=== PATIENT | male | born 1935 | race Caucasian/White ===

== ENCOUNTER 2016-08-26 19:29 | Inpatient (IN) | payer OTHER ==
[~2016-08-26] VITALS: Ht 172.7 cm; Wt 68.1 kg
[~2016-08-26 19:29] MED LIST: ASPI81TA28 PO; ATOR-24 PO; LISI-729 PO; SIMV20TA2 PO
[2016-08-26] MEDS ORDERED: SODIUM CHLORIDE 0.9% 1000ML 1,000 ML IV STA (20:42)
[2016-08-26] MEDS ORDERED: SOTA80TA PO (20:45)
[2016-08-26 20:51] LABS: BASO % 0.6 %; BASO ABS # 0.03 K/uL (0-0.2); COMPLETE YES; EOS % 2.7 %; HEMATOCRIT 35.8 % (42-52); IG% 0.2 %; LYMPH % 31.3 %; LYMPH ABS # 1.62 K/uL (1.2-3.4); MEAN PLATELET VOLUME 8.3 fL (7.4-10.4); MONO % 7.9 %; NEUT % 57.3 %; PLATELET COUNT 223 K/uL (130-400); RED BLOOD COUNT 4.07 M/uL (4.7-6.1); WHITE BLOOD COUNT 5.17 K/uL (4.8-10.8)
[2016-08-26 21:09] LABS: ALT/SGPT 16 U/L (12-78); BLOOD UREA NITROGEN 18 mg/dl (7-18); BUN/CREATININE RATIO 14.2 (10-20); CALCIUM 8.7 mg/dl (8.5-10.1); CARBON DIOXIDE 25 mmol/L (21-32); CHLORIDE 105 mmol/L (98-107); GLUCOSE 90 mg/dl (70-99); POTASSIUM 4.2 mmol/L (3.5-5.1); SODIUM 137 mmol/L (136-145)
--- NOTE | 2016-08-26 21:16 | DIAGNOSTIC IMAGING REPORT ---
SINGLE VIEW CHEST CLINICAL HISTORY: Syncope. FINDINGS: 2 AP, portable, upright chest radiographs are compared to chest x-ray and chest CT dated 01/19/2016. The examination is degraded by portable technique and patient rotation. The heart is mildly enlarged and there is atherosclerotic calcification of the thoracic aorta. The pulmonary vasculature is noncongested. Enlargement of the central pulmonary arteries suggests pulmonary artery hypertension. Emphysema and chronic interstitial thickening are similar to previous. No airspace consolidation or pleural effusion is identified. No pneumothorax is seen. The skeletal structures are osteopenic. The bony thorax is grossly intact. IMPRESSION: Emphysema and mild cardiac enlargement. No acute cardiopulmonary abnormality is identified. Electronically signed by: Tyree Caruso M.D. 08/26/2016 9:15 PM Dictated Date/Time: 08/26/2016 9:13 PM
[2016-08-26 21:19] LABS: ALKALINE PHOSPHATASE 63 U/L (45-117); AST/SGOT 17 U/L (15-37); CKMB/CK RATIO 2.1 (0-3.0); THYROID STIMULATING HORMONE 0.789 uIu/ml (0.300-4.500)
[2016-08-26] MEDS ORDERED: OPTIRAY 320 IV PRN (21:45)
[2016-08-26 22:13] LABS: URINE APPEARANCE CLEAR (CLEAR); URINE BILIRUBIN NEG (NEG); URINE COLOR YELLOW; URINE NITRITE NEG (NEG); URINE PH 7.5 (4.5-7.5); URINE SPECIFIC GRAVITY 1.007 (1.000-1.030); UROBILINOGEN NEG (NEG)
[2016-08-26 22:24] LABS: MANUAL MICROSCOPIC REQUIRED? NO; REVIEW REQ? NO
--- NOTE | 2016-08-26 22:29 | DIAGNOSTIC IMAGING REPORT ---
CT SCAN OF THE ABDOMEN AND PELVIS WITH IV CONTRAST CLINICAL HISTORY: Dizziness. Syncope. COMPARISON STUDY: Chest CT dated 01/19/2016. TECHNIQUE: Following the IV administration of 94 cc of Optiray 320, CT scan of the abdomen and pelvis is performed from the lung bases to the proximal femora. Images are reviewed in the axial, sagittal, and coronal planes. IV contrast was administered without complication. Automated dose control exposure was utilized. CT DOSE: 373.08 mGy.cm FINDINGS: Lung bases: The heart is normal in size and without pericardial effusion. The coronary arteries are densely calcified. Emphysema is suspected. A fat-containing Bochdalek hernia is noted at the left lung base. There are foci of tree-in-bud nodularity seen in the right lower lobe. There is a groundglass lesion with central cystic change identified in the right lower lobe on image #17. This measures up to 1.4 cm. A 4 mm nodule seen at the left lung base on image #7. No lobar consolidation or pleural effusion is identified. Liver: The contrast-enhanced liver is normal in size, contour, and attenuation. There is no intrahepatic biliary ductal dilatation. The hepatic veins and portal veins are patent. Gallbladder: Unremarkable. Spleen: Normal in size and attenuation. Pancreas: Moderately atrophic and grossly unremarkable. Adrenal glands: Unremarkable. Kidneys: The contrast enhanced kidneys are atrophic and without hydronephrosis. The kidneys enhance symmetrically. A retroaortic left renal vein is incidentally noted. Abdominal vasculature: There is advanced atherosclerotic calcification of the abdominal aorta and iliac arteries. An aortobiiliac stent graft is in place. The stent is widely patent. No significant aneurysm sac is identified. Bowel: There is a large left inguinal hernia which contains a nonobstructed segment of the sigmoid colon. No bowel obstruction is seen. The appendix is well-visualized and normal. A lipoma is incidentally noted in the ascending colon on axial image #128. Peritoneum: There is no intraperitoneal free air or abdominal ascites. Lymphadenopathy: None. Pelvic viscera: The prostate gland is mildly enlarged and heterogeneous. The bladder wall is thickened and trabeculated suggesting chronic outlet obstruction. A large left inguinal hernia is identified containing colon. Numerous pelvic flow was are observed. Skeletal structures: The skeletal structures are osteopenic. There is mild lumbosacral spondylosis. No lytic or blastic lesions are seen. IMPRESSION: 1. There are no acute infectious or inflammatory findings in the abdomen or pelvis. 2. There are foci of tree-in-bud nodularity identified at the right lung base. This is similar to previous and likely represents a chronic infectious/inflammatory pneumonitis or aspiration. Clinical correlation will be required. 3. There is a large left inguinal hernia which contains a nonobstructed segment of the sigmoid colon. No bowel obstruction is seen. 4. There is a 1.4 cm groundglass lesion in the right lower lobe, which contains a small focus of central cystic change. This has not significantly changed from 01/19/2016 and should be considered low-grade neoplasm until otherwise. 5. An aortobiiliac stent graft is in place. The stent is widely patent and there is no significant residual aneurysm sac. 6. Additional findings as above. Electronically signed by: Tyree Caruso M.D. 08/26/2016 10:27 PM Dictated Date/Time: 08/26/2016 10:18 PM
[2016-08-27] VITALS (8 sets, daily range): BP systolic 106–176; BP diastolic 63–87; PULSE 52–72; TEMP 36.4–37; O2SAT 93–95; Ht 172.7 cm; Wt 68.1 kg
[2016-08-27] MEDS ORDERED: ONDANSETRON INJ 2 MG/ML 2 ML VIAL IV PRN (00:30)
--- NOTE | 2016-08-27 00:53 | EMERGENCY ROOM VISIT NOTE ---
History Report prepared by Jaqui: Lizzy Kuhn Under the Supervision of: Dr. Sage Felix M.D. First contact with patient: 20:21 Chief Complaint: SYNCOPE (NEAR SYNCOPE) Stated Complaint: PASSED OUT,DIZZY Nursing Triage Summary: Near syncope while eating dinner, lasted a minute, per pt. states pt did pass out and slumped in chair, without fall, for a few seconds. States face turned very red. History of Present Illness The patient is an 81 year old male who presents to the Emergency Room with complaints of an episode of syncope around 1700 today. His reports that he was sitting eating dinner when his face turned red and he slumped over for a few seconds. He had some jerky arm movements during that time. He woke up and seemed confused for around 15 minutes before he came back to baseline. The patient himself says he felt flushed prior to the episode and the house seemed to be moving. He denies any LOC. He checked his blood pressure afterwards and found it was in the 170s over 90s. He had a similar episode in the 80s which turned out to be a heart attack. He denies any fever, chest pain, SOB, nausea, vomiting, changes in bowel movement, facial droop, unilateral weakness, or dysuria. He has been a smoker for the past 70 years. He smokes 2 packs per day. He drinks alcohol socially. He has an aortic aneurysm. He has a history of CAD and has [address] Source of History: patient, family Onset: 170 today Position: other (global) Quality: other (syncope) Timing: other (episodic) Associated Symptoms: No LOC, No fevers, No chest pain, No SOB, No nausea, No vomiting, No urinary symptoms, No weakness Note: Pt had red face, jerky movements during syncope, flushed, dizziness. Review of Systems See HPI for pertinent positives & negatives. A total of 10 systems reviewed and were otherwise negative. Past Medical & Surgical Medical Problems: (1) Inguinal hernia (2) Syncope Family History Noncontributory secondary to age. Social History Smoking Status: Current Every Day Smoker Drug Use: none Marital Status: Occupation Status: retired Current/Historical Medications Scheduled Aspirin (Aspirin Ec), 81 MG PO DAILY Lisinopril (Zestril), 5 MG PO DAILY Simvastatin (Zocor), 20 MG PO QPM Sotalol Hcl (Sotalol Hcl), 0.5 TAB PO BID Allergies Coded Allergies: Sulfa Antibiotics (Unverified Allergy, Severe, ., 08/26/16) Physical Exam Vital Signs Date Time Temp Pulse Resp B/P (MAP) Pulse Ox O2 Delivery O2 Flow Rate FiO2 08/26/16 22:58 60 18 157/73 98 Room Air 08/26/16 21:31 60 17 164/87 96 Room Air 08/26/16 21:15 52 18 149/70 96 Room Air 57 143/76 62 152/83 08/26/16 21:15 96 Room Air 08/26/16 21:01 55 18 131/64 96 Room Air 08/26/16 20:37 54 08/26/16 19:39 36.6 58 18 144/73 97 Room Air Physical Exam GENERAL: Patient is a healthy-appearing well-nourished male HEAD: Normocephalic atraumatic EYES: Ocular movements intact pupils equal and react to light OROPHARYNX mucous membranes are moist no exudates present no erythema or edema present NECK: Supple no nuchal rigidity CHEST: Good equal expansion LUNGS: Clear and equal to auscultation CARDIAC: Normal S1 and S2 ABDOMEN: Soft nontender no guarding BACK: No CVA tenderness EXTREMITIES: No pain upon palpation normal muscle strength in all groups no clubbing cyanosis or edema NEURO: Patient is following commands and answering questions appropriately. Alert and oriented x3 Cranial Nerves 2-12 grossly intact Medical Decision & Procedures ER Provider Diagnostic Interpretation: X-ray results as stated below per interpretation by me and the radiologist. Radiology results as stated below per my review and radiologist interpretation: SINGLE VIEW CHEST CLINICAL HISTORY: Syncope. FINDINGS: 2 AP, portable, upright chest radiographs are compared to chest x-ray and chest CT dated 01/19/2016. The examination is degraded by portable technique and patient rotation. The heart is mildly enlarged and there is atherosclerotic calcification of the thoracic aorta. The pulmonary vasculature is noncongested. Enlargement of the central pulmonary arteries suggests pulmonary artery hypertension. Emphysema and chronic interstitial thickening are similar to previous. No airspace consolidation or pleural effusion is identified. No pneumothorax is seen. The skeletal structures are osteopenic. The bony thorax is grossly intact. IMPRESSION: Emphysema and mild cardiac enlargement. No acute cardiopulmonary abnormality is identified. Electronically signed by: Tyree Caruso M.D. 08/26/2016 9:15 PM Dictated Date/Time: 08/26/2016 9:[address] SCAN OF THE ABDOMEN AND PELVIS WITH IV CONTRAST CLINICAL HISTORY: Dizziness. Syncope. COMPARISON STUDY: Chest CT dated 01/19/2016. TECHNIQUE: Following the IV administration of 94 cc of Optiray 320, CT scan of the abdomen and pelvis is performed from the lung bases to the proximal femora. Images are reviewed in the axial, sagittal, and coronal planes. IV contrast was administered without complication. Automated dose control exposure was utilized. CT DOSE: 373.08 mGy.cm FINDINGS: Lung bases: The heart is normal in size and without pericardial effusion. The coronary arteries are densely calcified. Emphysema is suspected. A fat-containing Bochdalek hernia is noted at the left lung base. There are foci of tree-in-bud nodularity seen in the right lower lobe. There is a groundglass lesion with central cystic change identified in the right lower lobe on image #17. This measures up to 1.4 cm. A 4 mm nodule seen at the left lung base on image #7. No lobar consolidation or pleural effusion is identified. Liver: The contrast-enhanced liver is normal in size, contour, and attenuation. There is no intrahepatic biliary ductal dilatation. The hepatic veins and portal veins are patent. Gallbladder: Unremarkable. Spleen: Normal in size and attenuation. Pancreas: Moderately atrophic and grossly unremarkable. Adrenal glands: Unremarkable. Kidneys: The contrast enhanced kidneys are atrophic and without hydronephrosis. The kidneys enhance symmetrically. A retroaortic left renal vein is incidentally noted. Abdominal vasculature: There is advanced atherosclerotic calcification of the abdominal aorta and iliac arteries. An aortobiiliac stent graft is in place. The stent is widely patent. No significant aneurysm sac is identified. Bowel: There is a large left inguinal hernia which contains a nonobstructed segment of the sigmoid colon. No bowel obstruction is seen. The appendix is well-visualized and normal. A lipoma is incidentally noted in the ascending colon on axial image #128. Peritoneum: There is no intraperitoneal free air or abdominal ascites. Lymphadenopathy: None. Pelvic viscera: The prostate gland is mildly enlarged and heterogeneous. The bladder wall is thickened and trabeculated suggesting chronic outlet obstruction. A large left inguinal hernia is identified containing colon. Numerous pelvic flow was are observed. Skeletal structures: The skeletal structures are osteopenic. There is mild lumbosacral spondylosis. No lytic or blastic lesions are seen. IMPRESSION: 1. There are no acute infectious or inflammatory findings in the abdomen or pelvis. 2. There are foci of tree-in-bud nodularity identified at the right lung base. This is similar to previous and likely represents a chronic infectious/inflammatory pneumonitis or aspiration. Clinical correlation will be required. 3. There is a large left inguinal hernia which contains a nonobstructed segment of the sigmoid colon. No bowel obstruction is seen. 4. There is a 1.4 cm groundglass lesion in the right lower lobe, which contains a small focus of central cystic change. This has not significantly changed from 01/19/2016 and should be considered low-grade neoplasm until otherwise. 5. An aortobiiliac stent graft is in place. The stent is widely patent and there is no significant residual aneurysm sac. 6. Additional findings as above. Electronically signed by: Tyree Caruso M.D. 08/26/2016 10:27 PM Dictated Date/Time: 08/26/2016 10:18 PM Laboratory Results Test 08/26/16 20:05 08/26/16 21:14 08/26/16 22:00 Immature Granulocyte % (Auto) 0.2 % White Blood Count 5.17 K/uL (4.8-10.8) Red Blood Count 4.07 M/uL (4.7-6.1) Hemoglobin 11.8 g/dL (14.0-18.0) Hematocrit 35.8 % (42-52) Mean Corpuscular Volume 88.0 fL (80-100) Mean Corpuscular Hemoglobin 29.0 pg (25-34) Mean Corpuscular Hemoglobin Concent 33.0 g/dl (32-36) Platelet Count 223 K/uL (130-400) Mean Platelet Volume 8.3 fL (7.4-10.4) Neutrophils (%) (Auto) 57.3 % Lymphocytes (%) (Auto) 31.3 % Monocytes (%) (Auto) 7.9 % Eosinophils (%) (Auto) 2.7 % Basophils (%) (Auto) 0.6 % Neutrophils # (Auto) 2.96 K/uL (1.4-6.5) Lymphocytes # (Auto) 1.62 K/uL (1.2-3.4) Monocytes # (Auto) 0.41 K/uL (0.11-0.59) Eosinophils # (Auto) 0.14 K/uL (0-0.5) Basophils # (Auto) 0.03 K/uL (0-0.2) Immature Granulocyte # (Auto) 0.01 K/uL (0.00-0.02) Total Bilirubin 0.3 mg/dl (0.2-1) Direct Bilirubin < 0.1 mg/dl (0-0.2) Aspartate Amino Transf (AST/SGOT) 17 U/L (15-37) Alanine Aminotransferase (ALT/SGPT) 16 U/L (12-78) Alkaline Phosphatase 63 U/L (45-117) Total Creatine Kinase 101 U/L (39-308) Creatine Kinase MB 2.1 ng/ml (0.5-3.6) Creatine Kinase MB Ratio 2.1 (0-3.0) Troponin I < 0.015 ng/ml (0-0.045) Total Protein 6.6 gm/dl (6.4-8.2) Albumin 3.5 gm/dl (3.4-5.0) Thyroid Stimulating Hormone (TSH) 0.789 uIu/ml (0.300-4.500) Bedside Glucose 92 mg/dl (70-99) Urine Color YELLOW Urine Appearance CLEAR (CLEAR) Urine pH 7.5 (4.5-7.5) Urine Specific [place] 1.007 (1.000-1.030) Urine Protein NEG (NEG) Urine Glucose (UA) NEG (NEG) Urine Ketones NEG (NEG) Urine Occult Blood NEG (NEG) Urine Nitrite NEG (NEG) Urine Bilirubin NEG (NEG) Urine Urobilinogen NEG (NEG) Urine Leukocyte Esterase NEG (NEG) Labs reviewed by ED physician. Medications Administered Medications (Trade) Dose Ordered Sig/Jose Juan Route Start Time Stop Time Status Last Admin Dose Admin Sodium Chloride 1,000 ml @ 999 mls/hr Q1H1M STAT IV 08/26/16 20:42 08/26/16 21:42 DC 08/26/16 21:06 999 MLS/HR ECG Indication: syncope Rate (beats per minute): 52 Rhythm: sinus bradycardia Findings: 1st degree AV block, no acute ischemic change, no ectopy ED Course 2039: The patient was evaluated by the student at this time. We discussed findings, differentials, and treatment plan. 2041: NSS 1000 ml @ 999 mls/hr IV. 2127: Past medical records reviewed. The patient was evaluated in room C7. A complete history and physical examination was performed. 2246: I discussed the patient's case with Alicia Hoskins hospitalist, he has agreed to evaluate the patient for further management and care. 2249: Upon reexamination the patient is resting comfortably. I discussed results and treatment plan with the patient. He verbalizes agreement and understanding. The patient will be evaluated for further management. Medical Decision Prior records/ancillary studies reviewed. Triage Nursing notes reviewed. Additional history obtained from family. The patient's history was concerning for syncope. Differential diagnosis: Etiologies such as vasovagal event, infection, hypoglycemia, electrolyte abnormalities, cardiac sources, intracerebral event, toxicologic, neurologic, as well as others were entertained. Medication Reconciliation: I attest that I have personally reviewed the patient' s current medication list Blood Pressure Screening: Patient was found to have an elevated blood pressure and was referred to their primary care doctor for recheck and further treatment This is an 81-year-old male who passed out suddenly without any warning at home. The patient has never had a syncopal episode like this before. He had been eating normally today. I am very concerned about the patient's story therefore discussed the patient with the hospitalist service who agreed to admit the patient patient and family were in agreement with the treatment plan. Consults Time Called: [phone] Consulting Physician: Alicia Hoskins [facility] Returned Call: [phone] I discussed the patient's case with him, he has agreed to evaluate the patient for further management and care. Impression Primary Impression: Episode of syncope Scribe Attestation The scribe's documentation has been prepared under my direction and personally reviewed by me in its entirety. I confirm that the note above accurately reflects all work, treatment, procedures, and medical decision making performed by me. Departure Information Dispostion Being Evaluated By Hospitalist Referrals Tomas Friedman (PCP) Patient Instructions My [facility] Problem Qualifiers Primary Impression: Episode of syncope Syncope type: unspecified Qualified Codes: R55 - Syncope and collapse
--- NOTE | 2016-08-27 02:40 | History and Physical ---
History & Physical Date & Time of Service: Aug 27, 2016 at 02:24 Chief Complaint: Passed Out,Dizzy Primary Care Physician: Tomas Friedman History of Present Illness Source: patient This is an 81 year old male with a PMH of CAD s/p stents, HTN, possible arrhythmia in the past; presents after a syncopal episode and loss of consciousness. Patient states that he was seated in a chair when all of a sudden he became dizzy and lost consciousness. He states he only lost consciousness for a few seconds; his saw this occur; no bowel/bladder incontinence; he has never had this episode before. Only complaint currently is inguinal pain from a hernia. Denies chest pain/palpitations/shortness of breath. Past Medical/Surgical History Medical Problems: (1) Inguinal hernia Status: Chronic Social History Smoking Status: Current Every Day Smoker Drug Use: none Marital Status: Occupational Status: retired Allergies Coded Allergies: Sulfa Antibiotics (Unverified Allergy, Severe, ., 08/26/16) Home Medications Scheduled Aspirin (Aspirin Ec), 81 MG PO DAILY Lisinopril (Zestril), 5 MG PO DAILY Simvastatin (Zocor), 20 MG PO QPM Sotalol Hcl (Sotalol Hcl), 0.5 TAB PO BID Review of Systems Constitutional: No fever, No chills, No weakness, No fatigue Respiratory: No cough, No sputum, No shortness of breath Cardiovascular: No chest pain, No edema, No palpitations Abdomen: No pain, No nausea, No vomiting, No diarrhea Musculoskeletal: No joint pain, No muscle pain Genitourinary - Male: No hematuria, No dysuria, No urinary frequency, No urinary urgency Neurologic: + problem reported (loss of consciousness), No weakness Psychiatric: No depression symptoms, No anxiety, No insomnia Hematologic / Lymphatic: No abnormal bleeding/bruising Integumentary: No rash Allergic / Immunologic: No environmental allergies, No seasonal allergies Physical Exam Vital Signs Date Time Temp Pulse Resp B/P (MAP) Pulse Ox O2 Delivery O2 Flow Rate FiO2 08/27/16 02:00 58 17 150/78 96 Room Air 08/27/16 00:58 56 17 154/82 96 Room Air 08/26/16 22:58 60 18 157/73 98 Room Air 08/26/16 21:31 60 17 164/87 96 Room Air 08/26/16 21:15 52 18 149/70 96 Room Air 57 143/76 62 152/83 08/26/16 21:15 96 Room Air 08/26/16 21:01 55 18 131/64 96 Room Air 08/26/16 20:37 54 08/26/16 19:39 36.6 58 18 144/73 97 Room Air General Appearance: no apparent distress Head: normocephalic, atraumatic Eyes: normal inspection Respiratory/Chest: chest non-tender, lungs clear, normal breath sounds, no respiratory distress, no accessory muscle use Cardiovascular: regular rate, rhythm, no edema, no murmur Abdomen/GI: normal bowel sounds, non tender, soft, + hernia Extremities/Musculoskelatal: normal capillary refill, no pedal edema Neurologic/Psych: no motor/sensory deficits, alert, normal mood/affect Skin: normal color Lymphatic: no adenopathy Diagnostics Laboratory Results Results Past 24 Hours Test 08/26/16 20:05 08/26/16 21:14 08/26/16 22:00 Range/Units White Blood Count 5.17 4.8-10.8 K/uL Red Blood Count 4.07 4.7-6.1 M/uL Hemoglobin 11.8 14.0-18.0 g/dL Hematocrit 35.8 42-52 % Mean Corpuscular Volume 88.0 80-100 fL Mean Corpuscular Hemoglobin 29.0 25-34 pg Mean Corpuscular Hemoglobin Concent 33.0 32-36 g/dl Platelet Count 223 130-400 K/uL Mean Platelet Volume 8.3 7.4-10.4 fL Neutrophils (%) (Auto) 57.3 % Lymphocytes (%) (Auto) 31.3 % Monocytes (%) (Auto) 7.9 % Eosinophils (%) (Auto) 2.7 % Basophils (%) (Auto) 0.6 % Neutrophils # (Auto) 2.96 1.4-6.5 K/uL Lymphocytes # (Auto) 1.62 1.2-3.4 K/uL Monocytes # (Auto) 0.41 0.11-0.59 K/uL Eosinophils # (Auto) 0.14 0-0.5 K/uL Basophils # (Auto) 0.03 0-0.2 K/uL RDW Standard Deviation 42.6 36.4-46.3 fL RDW Coefficient of Variation 13.2 11.5-14.5 % Immature Granulocyte % (Auto) 0.2 % Immature Granulocyte # (Auto) 0.01 0.00-0.02 K/uL Sodium Level 137 136-145 mmol/L Potassium Level 4.2 3.5-5.1 mmol/L Chloride Level 105 98-107 mmol/L Carbon Dioxide Level 25 21-32 mmol/L Anion Gap 7.0 3-11 mmol/L Blood Urea Nitrogen 18 7-18 mg/dl Creatinine 1.30 0.60-1.40 mg/dl Est Creatinine Clear Calc Drug Dose 41.6 ml/min Estimated GFR () 58.5 Estimated GFR (Non- 50.5 BUN/Creatinine Ratio 14.2 10-20 Random Glucose 90 70-99 mg/dl Calcium Level 8.7 8.5-10.1 mg/dl Total Bilirubin 0.3 0.2-1 mg/dl Direct Bilirubin < 0.1 0-0.2 mg/dl Aspartate Amino Transf (AST/SGOT) 17 15-37 U/L Alanine Aminotransferase (ALT/SGPT) 16 12-78 U/L Alkaline Phosphatase 63 45-117 U/L Total Creatine Kinase 101 39-308 U/L Creatine Kinase MB 2.1 0.5-3.6 ng/ml Creatine Kinase MB Ratio 2.1 0-3.0 Troponin I < 0.015 0-0.045 ng/ml Total Protein 6.6 6.4-8.2 gm/dl Albumin 3.5 3.4-5.0 gm/dl Thyroid Stimulating Hormone (TSH) 0.789 0.300-4.500 uIu/ml Bedside Glucose 92 70-99 mg/dl Urine Color YELLOW Urine Appearance CLEAR CLEAR Urine pH 7.5 4.5-7.5 Urine Specific [place] 1.007 1.000-1.030 Urine Protein NEG NEG Urine Glucose (UA) NEG NEG Urine Ketones NEG NEG Urine Occult Blood NEG NEG Urine Nitrite NEG NEG Urine Bilirubin NEG NEG Urine Urobilinogen NEG NEG Urine Leukocyte Esterase NEG NEG Diagnostic Radiology SINGLE VIEW CHEST CLINICAL HISTORY: Syncope. FINDINGS: 2 AP, portable, upright chest radiographs are compared to chest x-ray and chest CT dated 01/19/2016. The examination is degraded by portable technique and patient rotation. The heart is mildly enlarged and there is atherosclerotic calcification of the thoracic aorta. The pulmonary vasculature is noncongested. Enlargement of the central pulmonary arteries suggests pulmonary artery hypertension. Emphysema and chronic interstitial thickening are similar to previous. No airspace consolidation or pleural effusion is identified. No pneumothorax is seen. The skeletal structures are osteopenic. The bony thorax is grossly intact. IMPRESSION: Emphysema and mild cardiac enlargement. No acute cardiopulmonary abnormality is identified. CT SCAN OF THE ABDOMEN AND PELVIS WITH IV CONTRAST CLINICAL HISTORY: Dizziness. Syncope. COMPARISON STUDY: Chest CT dated 01/19/2016. TECHNIQUE: Following the IV administration of 94 cc of Optiray 320, CT scan of the abdomen and pelvis is performed from the lung bases to the proximal femora. Images are reviewed in the axial, sagittal, and coronal planes. IV contrast was administered without complication. Automated dose control exposure was utilized. CT DOSE: 373.08 mGy.cm FINDINGS: Lung bases: The heart is normal in size and without pericardial effusion. The coronary arteries are densely calcified. Emphysema is suspected. A fat-containing Bochdalek hernia is noted at the left lung base. There are foci of tree-in-bud nodularity seen in the right lower lobe. There is a groundglass lesion with central cystic change identified in the right lower lobe on image #17. This measures up to 1.4 cm. A 4 mm nodule seen at the left lung base on image #7. No lobar consolidation or pleural effusion is identified. Liver: The contrast-enhanced liver is normal in size, contour, and attenuation. There is no intrahepatic biliary ductal dilatation. The hepatic veins and portal veins are patent. Gallbladder: Unremarkable. Spleen: Normal in size and attenuation. Pancreas: Moderately atrophic and grossly unremarkable. Adrenal glands: Unremarkable. Kidneys: The contrast enhanced kidneys are atrophic and without hydronephrosis. The kidneys enhance symmetrically. A retroaortic left renal vein is incidentally noted. Abdominal vasculature: There is advanced atherosclerotic calcification of the abdominal aorta and iliac arteries. An aortobiiliac stent graft is in place. The stent is widely patent. No significant aneurysm sac is identified. Bowel: There is a large left inguinal hernia which contains a nonobstructed segment of the sigmoid colon. No bowel obstruction is seen. The appendix is well-visualized and normal. A lipoma is incidentally noted in the ascending colon on axial image #128. Peritoneum: There is no intraperitoneal free air or abdominal ascites. Lymphadenopathy: None. Pelvic viscera: The prostate gland is mildly enlarged and heterogeneous. The bladder wall is thickened and trabeculated suggesting chronic outlet obstruction. A large left inguinal hernia is identified containing colon. Numerous pelvic flow was are observed. Skeletal structures: The skeletal structures are osteopenic. There is mild lumbosacral spondylosis. No lytic or blastic lesions are seen. IMPRESSION: 1. There are no acute infectious or inflammatory findings in the abdomen or pelvis. 2. There are foci of tree-in-bud nodularity identified at the right lung base. This is similar to previous and likely represents a chronic infectious/inflammatory pneumonitis or aspiration. Clinical correlation will be required. 3. There is a large left inguinal hernia which contains a nonobstructed segment of the sigmoid colon. No bowel obstruction is seen. 4. There is a 1.4 cm groundglass lesion in the right lower lobe, which contains a small focus of central cystic change. This has not significantly changed from 01/19/2016 and should be considered low-grade neoplasm until otherwise. 5. An aortobiiliac stent graft is in place. The stent is widely patent and there is no significant residual aneurysm sac. 6. Additional findings as above. EKG Sinus bradycardia with 1st degree A-V block Non-specific intra-ventricular conduction block Abnormal ECG When compared with ECG of 19-JAN-2016 04:49, Fusion complexes are no longer Present Non-specific intra-ventricular conduction block has replaced Right bundle branch block Impression Assessment and Plan This is an 81 year old male with a PMH of CAD s/p stents, HTN, possible arrhythmia in the past; presents after a syncopal episode Syncope and Loss of Consciousness denies any symptoms prior to this episode states he does not have any hx. of arrhythmias, but is taking sotalol and does not know why will consult HIM to obtain [place] cardiology notes obtain Head CT echo carotid U/S orthostatic vitals PT/OT cardiology consulted for further input, may need outpatient Holter will monitor in tele CAD s/p stents continue aspirin, statin, sotalol no current chest pain or issues to note EKG = sinus bradycardia, first degree AV block repeat in AM DVT ppx subq heparin FULL CODE VTE Prophylaxis VTE Risk Assessment Done? Y/N: Yes Risk Level: Moderate
[2016-08-27] MEDS: SODIUM CHLORIDE 0.9% 1000ML 1,000 ML IV SCH ×2 (03:54→15:52)
[2016-08-27 04:25] LABS: HEMATOCRIT 35.2 % (42-52); MEAN CELL VOLUME 87.8 fL (80-100); MEAN CORPUSCULAR HEMOGLOBIN 29.2 pg (25-34); MEAN CORPUSCULAR HGB CONC 33.2 g/dl (32-36); MEAN PLATELET VOLUME 8.2 fL (7.4-10.4); PLATELET COUNT 211 K/uL (130-400); RED BLOOD COUNT 4.01 M/uL (4.7-6.1); WHITE BLOOD COUNT 4.05 K/uL (4.8-10.8)
[2016-08-27 04:36] LABS: PROTHROMBIN TIME (PATIENT) 10.6 SECONDS (9.0-12.0)
[2016-08-27 04:50] LABS: BUN/CREATININE RATIO 16.4 (10-20); CALCIUM 8.3 mg/dl (8.5-10.1); CREATININE 0.97 mg/dl (0.60-1.40); POTASSIUM 3.9 mmol/L (3.5-5.1)
--- NOTE | 2016-08-27 06:51 | DIAGNOSTIC IMAGING REPORT ---
ULTRASOUND OF THE CAROTID ARTERIES CLINICAL HISTORY: syncope COMPARISON STUDY: None. TECHNIQUE: Real-time, grayscale, and color Doppler sonography of the carotid arteries was performed. Imaging reviewed in the transverse and longitudinal planes. NASCET criteria was utilized for stenosis calcification. FINDINGS: There is mild atherosclerotic plaque present . The peak systolic velocity within the right internal carotid artery is 108 cm/sec. The systolic velocity ratio of right internal to common carotid artery is 1.2. The peak systolic velocity within the left internal carotid artery is 110 cm/sec. The systolic velocity ratio left internal to common carotid artery is 1.4. Antegrade flow is seen in the vertebral arteries. The external carotid arteries are patent. Blood pressure in the right arm measured 151 mm/Hg. Blood pressure in the left arm measured 148 mm/Hg. IMPRESSION: No evidence of hemodynamically significant carotid stenosis. Electronically signed by: Lance Benitez M.D. 08/27/2016 6:50 AM Dictated Date/Time: 08/27/2016 6:49 AM
--- NOTE | 2016-08-27 07:06 | DIAGNOSTIC IMAGING REPORT ---
CT HEAD WITHOUT CONTRAST (CT) CLINICAL HISTORY: syncope COMPARISON STUDY: No previous studies for comparison. TECHNIQUE: Axial CT of the brain is performed from the vertex to the skull base. IV contrast was not administered for this examination. CT DOSE: 601.98 mGy.cm FINDINGS: No intra or extra-axial mass lesions are visualized. There is no CT evidence of acute cortical infarction. There is no evidence of midline shift. There is no acute hemorrhage. No calvarial fractures are visualized. There are minimal white matter hypodensities likely on a small vessel basis. There is no evidence of pathologic ventricular dilatation. There is a giant cisterna magna There is no evidence of acute sinusitis IMPRESSION: No acute intracranial findings Electronically signed by: Lance Benitez M.D. 08/27/2016 7:05 AM Dictated Date/Time: 08/27/2016 7:04 AM
[2016-08-27] MEDS: LISINOPRIL 5 MG TAB PO SCH (07:40)
[2016-08-27] MEDS: ASPIRIN 81 MG ECTAB PO SCH (07:40)
[2016-08-27] MEDS: HEPARIN SOD 5000 UNIT/0.5 ML CARP SQ SCH ×3 (07:44→21:52)
[2016-08-27] MEDS ORDERED: SOTALOL HCL 80 MG TAB PO SCH (09:00)
[2016-08-27] MEDS ORDERED: DEXTROSE 5% IV ONE (09:45)
[2016-08-27] MEDS ORDERED: GLUCAGON INJ 5 MG in SYRINGE 0 ML IV ONE (09:45)
[2016-08-27] MEDS ORDERED: GLUCAGON IV ONE (09:45)
--- NOTE | 2016-08-27 09:57 | Cardiology Consultation ---
Cardiology Consultation Date of Consultation: Aug 27, 2016 Attending Investment Officer: Jaxson History of Present Illness Patient is a 81 year old male presented with a witnessed syncopal event. Pt states that he's been in his normal state of health as of late without complaint. On 08/26/16, sitting in a chair at home suddenly felt lightheadedness accompanied by a fullness sensation in his head and he lost consciousness. Event witnessed by his . Denied any chest pain, sob, palpitations. Taking medications as directed. Does not know why taking sotalol. Follows with [facility], no records available. Pt then had a similar event this AM at approx 0742 this was associated with an approx 16 second run of complete heart block. Did not syncopize with this event. Also, had a 4 second episode while in the ER. Past Medical/Surgical History Problem List: Medical Problems: (1) Inguinal hernia (2) Syncope AAA repair, endovascularly PCI to unknown vessel in [facility] Social History Smoking Status: Current Every Day Smoker Alcohol Use: socially Drug Use: none Marital Status: Occupation: retired Review Of Systems General: The patient denies weight change, night sweats, fever, chills. Head: The patient denies headache and prior head trauma. Cardiovascular: The patient denies chest pain or chest discomfort, dyspnea on exertion, palpitations, PND, orthopnea, edema, spontaneous shortness of breath, syncope and near syncope. Pulmonary: The patient denies cough, wheeze, pleurisy, hemoptysis, sputum, and excessive snoring. Gastrointestinal: The patient denies nausea, vomiting, diarrhea, constipation, bloating, hematemesis, hematochezia, and abdominal pain. Skin: The patient denies diaphoresis and rash. Musculoskeletal: The patient denies joint pain, joint swelling, myalgia, back pain, neck pain and prior injuries. Neurological: The patient denies prior stroke and seizures Allergies Coded Allergies: Sulfa Antibiotics (Unverified Allergy, Severe, ., 08/26/16) Medications Reported Home Medications Medications Dose Route/Sig Max Daily Dose Days Date Category Sotalol Hcl 80 Mg Tab 0.5 Tab PO BID 08/26/16 Reported Zestril (Lisinopril) 5 Mg Tab 5 Mg PO DAILY 01/19/16 Reported Zocor (Simvastatin) 20 Mg Tab 20 Mg PO QPM 01/19/16 Reported Aspirin Ec (Aspirin) 81 Mg Tab 81 Mg PO DAILY 01/19/16 Reported Physical Exam Vital Signs (Last 8hrs): Last 8 Hrs Date Time Temp Pulse Resp B/P (MAP) Pulse Ox O2 Delivery O2 Flow Rate FiO2 08/27/16 08:00 Room Air 08/27/16 07:55 72 18 176/87 (116) 95 Room Air 08/27/16 07:17 36.5 65 20 134/66 (88) 93 Room Air 08/27/16 04:00 Room Air 08/27/16 02:59 36.4 60 18 140/84 95 Room Air 08/27/16 02:00 58 17 150/78 96 Room Air General Appearance: Alert and Oriented x3. NAD. Head: Normocephalic Atraumatic. Eyes: PERRLA, EOMI, conjunctiva and sclera clear Neck: Supple. No carotid bruits noted. No JVD. No HJD. Respiratory: Breath sounds clear to auscultation bilaterally. No w/r/r. Cardiovascular: Reg rate and rhythm. S1 and S2 noted. No murmurs, rubs, gallops. PMI non displace. Abdomen: Normal bowel sounds, soft nontender. no abdominal bruits. Extremities: No edema, no clubbing or cyanosis. distal pulses 2/4 bilaterally. Neuro: No focal deficits. Psychiatric: Normal affect. Data Last 24 Hours Test 08/26/16 20:05 08/26/16 21:14 08/26/16 22:00 08/27/16 04:09 White Blood Count 5.17 K/uL 4.05 K/uL Red Blood Count 4.07 M/uL 4.01 M/uL Hemoglobin 11.8 g/dL 11.7 g/dL Hematocrit 35.8 % 35.2 % Mean Corpuscular Volume 88.0 fL 87.8 fL Mean Corpuscular Hemoglobin 29.0 pg 29.2 pg Mean Corpuscular Hemoglobin Concent 33.0 g/dl 33.2 g/dl Platelet Count 223 K/uL 211 K/uL Mean Platelet Volume 8.3 fL 8.2 fL Neutrophils (%) (Auto) 57.3 % Lymphocytes (%) (Auto) 31.3 % Monocytes (%) (Auto) 7.9 % Eosinophils (%) (Auto) 2.7 % Basophils (%) (Auto) 0.6 % Neutrophils # (Auto) 2.96 K/uL Lymphocytes # (Auto) 1.62 K/uL Monocytes # (Auto) 0.41 K/uL Eosinophils # (Auto) 0.14 K/uL Basophils # (Auto) 0.03 K/uL RDW Standard Deviation 42.6 fL 42.5 fL RDW Coefficient of Variation 13.2 % 13.1 % Immature Granulocyte % (Auto) 0.2 % Immature Granulocyte # (Auto) 0.01 K/uL Sodium Level 137 mmol/L 139 mmol/L Potassium Level 4.2 mmol/L 3.9 mmol/L Chloride Level 105 mmol/L 108 mmol/L Carbon Dioxide Level 25 mmol/L 28 mmol/L Anion Gap 7.0 mmol/L 3.0 mmol/L Blood Urea Nitrogen 18 mg/dl 16 mg/dl Creatinine 1.30 mg/dl 0.97 mg/dl Est Creatinine Clear Calc Drug Dose 41.6 ml/min 55.8 ml/min Estimated GFR () 58.5 83.3 Estimated GFR (Non- 50.5 71.9 BUN/Creatinine Ratio 14.2 16.4 Random Glucose 90 mg/dl 83 mg/dl Calcium Level 8.7 mg/dl 8.3 mg/dl Total Bilirubin 0.3 mg/dl Direct Bilirubin < 0.1 mg/dl Aspartate Amino Transf (AST/SGOT) 17 U/L Alanine Aminotransferase (ALT/SGPT) 16 U/L Alkaline Phosphatase 63 U/L Total Creatine Kinase 101 U/L Creatine Kinase MB 2.1 ng/ml Creatine Kinase MB Ratio 2.1 Troponin I < 0.015 ng/ml Total Protein 6.6 gm/dl Albumin 3.5 gm/dl Thyroid Stimulating Hormone (TSH) 0.789 uIu/ml Bedside Glucose 92 mg/dl Urine Color YELLOW Urine Appearance CLEAR Urine pH 7.5 Urine Specific [place] 1.007 Urine Protein NEG Urine Glucose (UA) NEG Urine Ketones NEG Urine Occult Blood NEG Urine Nitrite NEG Urine Bilirubin NEG Urine Urobilinogen NEG Urine Leukocyte Esterase NEG Prothrombin Time 10.6 SECONDS Prothromb Time International Ratio 1.0 EKG: sinus art with 1st degree av block and IRBBB Assessment & Plan Impression: 1. Complete heart block no ventricular escape on sotalol (unknown reason), obviously stopped will give glucagon to reverse beta keyonna IVF with NSS temporary pacer pads placed will ultimately need ppm placement, discussed and agreeable check lyme echo pending would like to avoid temporary pacer if possible, will follow very closely 2. Hx of CAD s/p pci, unknown site cont asa 3. HTN cont lisinopril can increase if necessary or add amlodipine avoid any av itz blocking agents.
[2016-08-27] MEDS ORDERED: PERFLUTREN LIPID MICROSPHERE (DEFINITY) IV ONE (10:00)
--- NOTE | 2016-08-27 13:10 | ECHOCARDIOGRAM REPORT ---
*NOTICE TO RECEIVING [employer] This information is strictly Confidential and protected under [place] law. [place] law prohibits you from making any further disclosure of this information unless further disclosure is expressly permitted by the written consent of the person to whom it pertains or is authorized by law. A general authorization for the release of medical or other information is not sufficient for this purpose. Hospital accepts no responsibility if the information is made available to any other person, INCLUDING THE PATIENT. Interpretation Summary * Name: DICK RUFF Study Date: 08/27/2016 09:00 AM BP: 140/84 mmHg * Patient Location: C.2T\S\S240\S\2 HR: 53 * : 1935 (M/d/yy) Gender: Male Height: 68 in * Age: 81 yrs Ethnicity: CA Weight: 158 lb * Ordering Physician: Bharati Pascual * Referring Physician: Self, Referred * Performed By: Nicolas Luna RDCS * * Reason For Study: Syncope * BSA: 1.8 m2 * -- Conclusions -- * Normal LV chamber size and wall thickness. * Normal LV systolic function, EF 65-70%. * No segmental left ventricular wall motion abnormalities are noted. * Grade I diastolic dysfunction. * Aortic valve sclerosis moderate, without significant aortic valvular stenosis. Procedure Details * A complete two-dimensional transthoracic echocardiogram was performed (2D, M-mode, Doppler and color flow Doppler). * The study was technically difficult. * The study was technically difficult, but visualization was adequate with the administration of Definity ultrasound contrast. * A contrast injection of Definity was performed to improve assessment of LV function. * Contrast was injected into an intravenous site in the left arm. * One vial of Definity ultrasound contrast was diluted in normal saline to a total volume of 10 ml. A total of '3' ml of solution was administered during imaging. * Lot # [id number] of Definity utilized for procedure. * Expiration date 1A. * The attending nurse who injected the contrast agent was BEBO Casas. * A saline contrast injection was performed to assess for cardiac shunting. * The injection was performed through an intravenous line in the left arm. * The attending nurse who injected the saline contrast was BEBO Casas. * A total of 10 cc of agitated saline was given. Left Ventricle * The left ventricle is normal in size. * There is normal left ventricular wall thickness. * Left ventricular systolic function is normal. * No segmental left ventricular wall motion abnormalities are noted. * Ejection Fraction = 65-70%. * The left ventricular wall motion is normal. Right Ventricle * The right ventricular cavity size is normal (basal dimension <4.2 cm in right ventricular apical 4-chamber view). * The right ventricular systolic function is normal as assessed by tricuspid annular plane systolic excursion (TAPSE) (normal >1.5 cm). Atria * The left atrial size is normal. * Right atrial size is normal. * No ASD detected; PFO is not assessed. Mitral Valve * The mitral valve is normal in structure and function. Tricuspid Valve * The tricuspid valve is normal in structure and function. Aortic Valve * The aortic valve is tricuspid. The leaflet thickness if normal. There is no aortic stenosis, and no significant insufficiency. * Aortic valve sclerosis moderate, without significant aortic valvular stenosis. * There is no significant aortic regurgitation. Pulmonic Valve * The pulmonary valve is not well seen, but the Doppler examination is normal without significant regurgitation or stenosis. Great Vessels * The aortic root and proximal ascending aorta are normal sized. Pericardium/Pleural * There is no pericardial effusion. Left Ventricular Diastolic Function * Grade I diastolic dysfunction, (abnormal relaxation pattern). MMode 2D Measurements and Calculations IVSd 0.96 cm IVSs 1.4 cm LVIDd 5.1 cm LVIDs 3.3 cm LVPWd 0.92 cm LVPWs 1.3 cm IVS/LVPW 1.0 FS 35.8 % EDV(Teich) 122.9 ml ESV(Teich) 43.0 ml EF(Teich) 65.1 % EDV(cubed) 131.4 ml ESV(cubed) 34.7 ml EF(cubed) 73.6 % % IVS thick 45.1 % % LVPW thick 44.0 % LV mass(C)d 171.8 grams LV mass(C)dI 92.9 grams/m\S\2 LV mass(C)s 149.2 grams LV mass(C)sI 80.7 grams/m\S\2 SV(Teich) 80.0 ml SI(Teich) 43.2 ml/m\S\2 SV(cubed) 96.7 ml SI(cubed) 52.3 ml/m\S\2 EPSS 0.78 cm Ao root diam 3.5 cm Ao root area 9.6 cm\S\2 ACS 1.4 cm LA dimension 3.2 cm asc Aorta Diam 4.0 cm LA/Ao 0.90 LVOT diam 2.0 cm LVOT area 3.1 cm\S\2 LVAd ap4 30.2 cm\S\2 LVLd ap4 8.4 cm EDV(MOD-sp4) 90.1 ml LVAs ap4 14.0 cm\S\2 LVLs ap4 6.3 cm ESV(MOD-sp4) 26.3 ml EF(MOD-sp4) 70.8 % LVAd ap2 26.5 cm\S\2 LVLd ap2 8.5 cm EDV(MOD-sp2) 66.7 ml LVAs ap2 11.5 cm\S\2 LVLs ap2 6.2 cm ESV(MOD-sp2) 17.1 ml EF(MOD-sp2) 74.4 % SV(MOD-sp4) 63.8 ml SI(MOD-sp4) 34.5 ml/m\S\2 SV(MOD-sp2) 49.6 ml SI(MOD-sp2) 26.8 ml/m\S\2 Doppler Measurements and Calculations MV E max monica 75.9 cm/sec MV A max monica 91.8 cm/sec MV E/A 0.83 MV dec time 0.32 sec Ao V2 max 215.8 cm/sec Ao max PG 18.6 mmHg Ao max PG (full) 10.9 mmHg LINDA(V,A) 2.0 cm\S\2 LINDA(V,D) 2.0 cm\S\2 LV V1 max PG 7.7 mmHg LV V1 max 138.7 cm/sec PA V2 max 102.8 cm/sec PA max PG 4.2 mmHg PA acc slope 525.5 cm/sec\S\2 PA acc time 0.15 sec TR max monica 244.3 cm/sec PA pr(Accel) 9.3 mmHg
[2016-08-27 20:09] LABS: LYME DISEASE AB IGG NEG (NEG); LYME DISEASE AB IGM NEG (NEG)
[2016-08-27] MEDS: SIMVASTATIN 20 MG TAB PO SCH (20:54)
[2016-08-28] VITALS (7 sets, daily range): BP systolic 106–155; BP diastolic 55–83; PULSE 55–68; TEMP 36.4–36.9; O2SAT 93–96
[2016-08-28] MEDS: SODIUM CHLORIDE 0.9% 1000ML 1,000 ML IV SCH ×2 (04:15→14:24)
[2016-08-28] MEDS: HEPARIN SOD 5000 UNIT/0.5 ML CARP SQ SCH ×3 (05:53→21:01)
[2016-08-28] MEDS: LISINOPRIL 5 MG TAB PO SCH (07:30)
[2016-08-28] MEDS: ASPIRIN 81 MG ECTAB PO SCH (07:30)
--- NOTE | 2016-08-28 11:09 | Progress Note ---
Internal Med Progress Note Date of Service: Aug 28, 2016. Provider Documentation: SUBJECTIVE: Patient is sitting in the chair and is in no apparent distress. Continues to feel better and had no dizzy spell overnight. Denies any chest pain/pressure or SOB. Has temporary pacemaker placed on 2016. OBJECTIVE: Vital Signs-as noted below Examination: General Appearance: Alert/Awake and is in no apparent distress Head: normocephalic, atraumatic Eyes: normal inspection Neck: Supple, Midline trachea, No JVD. Respiratory/Chest: chest non-tender, lungs clear B/L, normal breath sounds, no respiratory distress, no accessory muscle use Cardiovascular: regular rate, rhythm, no edema, no murmur Abdomen/GI: normal bowel sounds, non tender, soft, + hernia Extremities/Musculoskeletal: normal capillary refill, no pedal edema Neurologic/Psych: no motor/sensory deficits, alert, normal mood/affect Skin: normal color Lymphatic: no adenopathy Lab data as noted below. ASSESSMENT & PLAN: Echocardiogram (08/27/2016) Normal LV chamber size and wall thickness. Normal LV systolic function, EF 65-70%. No segmental left ventricular wall motion abnormalities are noted. Grade I diastolic dysfunction. Aortic valve sclerosis moderate, without significant aortic valvular stenosis. SINGLE VIEW CHEST IMPRESSION: Emphysema and mild cardiac enlargement. No acute cardiopulmonary abnormality is identified. CT SCAN OF THE ABDOMEN AND PELVIS WITH IV CONTRAST FINDINGS: Lung bases: The heart is normal in size and without pericardial effusion. The coronary arteries are densely calcified. Emphysema is suspected. A fat-containing Bochdalek hernia is noted at the left lung base. There are foci of tree-in-bud nodularity seen in the right lower lobe. There is a ground glass lesion with central cystic change identified in the right lower lobe on image # 17. This measures up to 1.4 cm. A 4 mm nodule seen at the left lung base on image #7. No lobar consolidation or pleural effusion is identified. Liver: The contrast-enhanced liver is normal in size, contour, and attenuation. There is no intrahepatic biliary ductal dilatation. The hepatic veins and portal veins are patent. Gallbladder: Unremarkable. Spleen: Normal in size and attenuation. Pancreas: Moderately atrophic and grossly unremarkable. Adrenal glands: Unremarkable. Kidneys: The contrast enhanced kidneys are atrophic and without hydronephrosis. The kidneys enhance symmetrically. A retroaortic left renal vein is incidentally noted. Abdominal vasculature: There is advanced atherosclerotic calcification of the abdominal aorta and iliac arteries. An aortobiiliac stent graft is in place. The stent is widely patent. No significant aneurysm sac is identified. Bowel: There is a large left inguinal hernia which contains a non-obstructed segment of the sigmoid colon. No bowel obstruction is seen. The appendix is well-visualized and normal. A lipoma is incidentally noted in the ascending colon on axial image #128. Peritoneum: There is no intraperitoneal free air or abdominal ascites. Lymphadenopathy: None. Pelvic viscera: The prostate gland is mildly enlarged and heterogeneous. The bladder wall is thickened and trabeculated suggesting chronic outlet obstruction. A large left inguinal hernia is identified containing colon. Numerous pelvic flow was are observed. Skeletal structures: The skeletal structures are osteopenic. There is mild lumbosacral spondylosis. No lytic or blastic lesions are seen. IMPRESSION: 1. There are no acute infectious or inflammatory findings in the abdomen or pelvis. 2. There are foci of tree-in-bud nodularity identified at the right lung base. This is similar to previous and likely represents a chronic infectious/inflammatory pneumonitis or aspiration. Clinical correlation will be required. 3. There is a large left inguinal hernia which contains a non-obstructed segment of the sigmoid colon. No bowel obstruction is seen. 4. There is a 1.4 cm ground-glass lesion in the right lower lobe, which contains a small focus of central cystic change. This has not significantly changed from 01/19/2016 and should be considered low-grade neoplasm until otherwise. 5. An aortobiiliac stent graft is in place. The stent is widely patent and there is no significant residual aneurysm sac. 6. Additional findings as above. CT Head IMPRESSION: No acute intracranial findings Carotid Duplex IMPRESSION: No evidence of hemodynamically significant carotid stenosis. EKG Sinus bradycardia with 1st degree A-V block Non-specific intra-ventricular conduction block Abnormal ECG When compared with ECG of 19-JAN-2016 04:49, Fusion complexes are no longer Present Non-specific intra-ventricular conduction block has replaced Right bundle branch block 81 year old male with a PMH of CAD s/p stents, HTN, possible arrhythmia in the past; presents after a syncopal episode Syncope and Loss of Consciousness: Denies any symptoms prior to this episode States he does not have any hx. of arrhythmias, but is taking sotalol and does not know why. Consult HIM to obtain [place] cardiology notes Noted to have Complete Heart Block. -CT Head is negative for any acute finding -Reviewed findings of Echocardiogram -Carotid U/S shows no clinically significant finding -Ordered PT/OT -Cardiology consult reviewed. Thanks for input and discussed with Dr. Puri. -Temporary pacemaker has been placed and being evaluated for Permanent pacemaker. -Holding Sotalol. -Lyme screen is negative. History CAD s/p stents: Stale. No current chest pain or acute acute cardiac issue other than above. -Continue aspirin, statin, sotalol History HTN: Continue Lisinopril 5 mg daily under parameter. Hypercholesterolemia: Continue Statin. DVT Prophylaxis: Sq Heparin. Code Status: FULL CODE Disposition: Discharge once is clinically stable as well cleared by cardiology. Vital Signs: Date Time Temp Pulse Resp B/P (MAP) Pulse Ox O2 Delivery O2 Flow Rate FiO2 08/28/16 12:00 Room Air 08/28/16 11:34 36.4 56 20 155/75 (101) 95 Room Air 08/28/16 08:00 Room Air 08/28/16 07:08 36.6 64 20 127/66 (86) 93 Room Air 08/28/16 04:00 Room Air 08/28/16 03:40 36.8 68 18 106/55 (72) 94 Room Air 08/28/16 00:00 Room Air 08/27/16 23:32 36.6 57 16 116/63 (80) 94 Room Air 08/27/16 20:00 Room Air 08/27/16 19:34 37.0 60 20 106/66 (79) 93 Room Air 08/27/16 16:21 36.4 52 20 126/67 (86) 95 Room Air 08/27/16 16:00 Room Air Lab Results: Results Past 24 Hours Test 08/27/16 18:21 Range/Units Lyme Disease IgG Antibody NEG NEG Lyme Disease IgM Antibody NEG NEG
--- NOTE | 2016-08-28 12:04 | Cardiology Follow-Up ---
Subjective Subjective Date of Service: Aug 28, 2016. Pt evaluation today including: conversation w/ patient, physical exam, chart review, lab review, review of studies, review of inpatient medication list Additional Details: Pt seen and examined, states that he feels well. No further lightheadedness/ syncopal events overnight. Did have some intermittent transcutaneous pacing overnight, did not fell it. Denies cp, sob, palpitations, lightheadedness or dizziness. Tele reviewed: sinus with short runs of heart block and trancutaneous pacing last PM. Problem List Medical Problems: (1) Bronchitis Status: Acute (2) Dehydration Status: Acute (3) Episode of syncope Status: Acute (4) Intermittent palpitations Status: Acute Review of Systems Respiratory: No see HPI, No cough, No sputum, No wheezing, No shortness of breath, No dyspnea on exertion, No dyspnea at rest, No hemoptysis, No problem reported Cardiac: No see HPI, No chest pain, No orthopnea, No PND, No edema, No claudication, No palpitations, No problem reported Objective Vital Signs Last Vital Signs Documentation Date Time Temp Pulse Resp B/P (MAP) Pulse Ox O2 Delivery O2 Flow Rate FiO2 08/28/16 08:00 Room Air 08/28/16 07:08 36.6 64 20 127/66 (86) 93 Physical Exam: General Appearance: WD/WN, no apparent distress Eyes: bilateral eyes normal inspection, bilateral eyes PERRL, bilateral eyes EOMI ENT: normal ENT inspection, hearing grossly normal, pharynx normal Neck: supple, no adenopathy, thyroid normal, no JVD, no carotid bruits, trachea midline Respiratory/Chest: chest non-tender, lungs clear, normal breath sounds, no respiratory distress, no accessory muscle use Cardiovascular: regular rate, rhythm, no edema, no JVD, no murmur Abdomen: normal bowel sounds, non tender, soft, no organomegaly, no pulsatile mass Extremities: normal range of motion, non-tender, normal inspection, no pedal edema, no calf tenderness Neurologic/Psychiatric: 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 Complete heart block no ventricular escape on sotalol (unknown reason), obviously stopped received glucagon for reversal IVF with NSS temporary pacer pads placed, transiently being paced, asymptomatic, does not feel the pacing will ultimately need ppm placement, discussed and agreeable lyme negative echo without significant abnormality would like to avoid temporary pacer if possible, will follow very closely npo after midnight 2. Hx of CAD s/p pci, unknown site cont asa 3. HTN improved cont lisinopril can increase if necessary or add amlodipine avoid any av itz blocking agents.
[2016-08-28] MEDS ORDERED: NURSING VERBAL MED ORDER ONE (14:30)
[2016-08-28] MEDS: SIMVASTATIN 20 MG TAB PO SCH (21:01)
[2016-08-29] VITALS (15 sets, daily range): BP systolic 116–155; BP diastolic 64–87; PULSE 60–71; TEMP 36.3–37; O2SAT 91–95
[2016-08-29] MEDS: HEPARIN SOD 5000 UNIT/0.5 ML CARP SQ SCH (05:43)
[2016-08-29 07:23] LABS: BASO % 0.8 %; BASO ABS # 0.04 K/uL (0-0.2); COMPLETE YES; EOS % 3.2 %; HEMATOCRIT 33.3 % (42-52); IG% 0.2 %; LYMPH % 23.7 %; LYMPH ABS # 1.12 K/uL (1.2-3.4); MEAN CORPUSCULAR HEMOGLOBIN 30.2 pg (25-34); MEAN CORPUSCULAR HGB CONC 33.9 g/dl (32-36); MEAN PLATELET VOLUME 8.5 fL (7.4-10.4); MONO % 10.6 %; NEUT % 61.5 %; PLATELET COUNT 184 K/uL (130-400); RED BLOOD COUNT 3.74 M/uL (4.7-6.1); WHITE BLOOD COUNT 4.73 K/uL (4.8-10.8)
[2016-08-29 07:49] LABS: BUN/CREATININE RATIO 16.2 (10-20); CALCIUM 8.2 mg/dl (8.5-10.1); CREATININE 0.98 mg/dl (0.60-1.40); MAGNESIUM 1.9 mg/dl (1.8-2.4)
[2016-08-29] MEDS: LISINOPRIL 5 MG TAB PO SCH (07:54)
[2016-08-29] MEDS: ASPIRIN 81 MG ECTAB PO SCH (07:54)
--- NOTE | 2016-08-29 09:12 | Clinical Documentation Query ---
CLINICAL DOCUMENTATION QUERY Dr. LOPEZ, In your clinical opinion is this patient being managed for: (X ) Acute kidney failure, treated and resolved. Agree ( ) Other explanation of clinical findings (Please Explain) ( ) Unable to determine (Please Define) ( ) Need to Discuss ( ) Not Agree The medical record reflects the following clinical findings, treatment, and risk factors. Clinical Indicators: 81 yo male presented with syncope, found to have complete heart block. Initial Cr 1.30 which has trended down to 0.97/0.98 Treatment: IV fluid bolus in ER then continuous IV fluids, monitor PRP's Risk Factors: age, complete heart block, hx [place], CAD, HTN Please clarify and document your clinical opinion in the progress notes and discharge summary. Terms such as "probable", "suspected", "likely", "questionable", "possible", or "still to be ruled out" are acceptable. IF IN AGREEMENT, YOU MUST DOCUMENT ABOVE DIAGNOSTIC STATEMENT IN DAILY PROGRESS NOTES AND DISCHARGE SUMMARY. This document is not part of the patient's record. Thank You, Akila Sifuentes, RN [phone]
--- NOTE | 2016-08-29 09:55 | Cardiology Follow-Up ---
Subjective General Date of Service: Aug 29, 2016. Chief Complaint: follow up syncope Pt evaluation today including: conversation w/ patient, physical exam History of Present Illness The patient is a 81 year old male seen in cardiology follow up with initial assessment having been performed by Dr Puri. Patient with no symptoms overnight last night. SB noted on telemetry last night with a few short pauses, max 2 seconds. Allergies Coded Allergies: Sulfa Antibiotics (Unverified Allergy, Severe, ., 08/26/16) Social History Smoking Status: Current Every Day Smoker Hx Tobacco Use In Past Year?: Yes Hx Alcohol Use - Type And Amou: Yes (Rarely) Hx Substance Use - Type And Am: No Problem List Medical Problems: (1) Bronchitis Status: Acute (2) Dehydration Status: Acute (3) Episode of syncope Status: Acute (4) Intermittent palpitations Status: Acute Physical Exam Vital Signs Last Vital Signs Documentation Date Time Temp Pulse Resp B/P (MAP) Pulse Ox O2 Delivery O2 Flow Rate FiO2 08/29/16 07:50 36.8 61 18 148/81 (103) 93 Room Air Physical Exam Constitutional: Level of Distress: NAD Lungs: Auscultation: no wheezing, no rales/crackles, no rhonchi Cardiovascular: Heart Auscultation: RRR, no murmurs, no rubs Extremities: no edema Neurologic: Gait & Station: pertinent finding (no focal deficits ) Assessment and Plan Assessment and Plan Summary of TTecho performed 08/27/16: * -- Conclusions -- * Normal LV chamber size and wall thickness. * Normal LV systolic function, EF 65-70%. * No segmental left ventricular wall motion abnormalities are noted. * Grade I diastolic dysfunction. * Aortic valve sclerosis moderate, without significant aortic valvular stenosis. Impression: 81 year old male 1. Presented with syncope -symptoms were reproduced and associate with intermittent complete AV block during hospital stay 08/27, 08/28/16, required transient support with transcutaneous pacemaker. -EKG this am reveals sinus bradycardia at 57 bpm, with long first degree AV block, bifascicular block (RBBB, LAFB) -Preserved LVEF on this admission -On low dose sotalol , 40 mg BID , pre-hospital, pt unaware of past arrhythmia problem, AF or VT, but judging by low dose, there was likely concern about bradycardia. 2. H/o CAD, remote OR, cardiac cath, PCI to unknown vessel in [place], followed with [facility] S[facility] , will obtain records 3. h/o endovascular AAA repair, follows with vascular at [facility], and per pt he has been following for routine imaging and clinical assessment there 4. HTN 5. Dyslipidemia Plan: Sotalol is on hold, however given evidence of underlying conduction system disease on baseline EKG and significant recurrent syncope/ near syncope with symptoms reproduced during recorded episode of CHB, implantation of dual chamber pacemaker is indicated as holding sotalol alone is not anticipated to resolve issue. I discussed case with Dr Olivera of [facility], and pt is scheduled for this afternoon. Clinically stable at present. Hold SQ heparin DVT prophylaxis until after patient is reassessed post procedure tomorrow. Continue lisinopril, simvastatin, aspirin. Follow up: post procedure, will discuss future with patient regarding arranging follow up with our group or with [place]. Ambar Lantigua, Laboratory Results Last 24 Hours Test 08/29/16 06:54 White Blood Count 4.73 K/uL Red Blood Count 3.74 M/uL Hemoglobin 11.3 g/dL Hematocrit 33.3 % Mean Corpuscular Volume 89.0 fL Mean Corpuscular Hemoglobin 30.2 pg Mean Corpuscular Hemoglobin Concent 33.9 g/dl Platelet Count 184 K/uL Mean Platelet Volume 8.5 fL Neutrophils (%) (Auto) 61.5 % Lymphocytes (%) (Auto) 23.7 % Monocytes (%) (Auto) 10.6 % Eosinophils (%) (Auto) 3.2 % Basophils (%) (Auto) 0.8 % Neutrophils # (Auto) 2.91 K/uL Lymphocytes # (Auto) 1.12 K/uL Monocytes # (Auto) 0.50 K/uL Eosinophils # (Auto) 0.15 K/uL Basophils # (Auto) 0.04 K/uL RDW Standard Deviation 43.0 fL RDW Coefficient of Variation 13.1 % Immature Granulocyte % (Auto) 0.2 % Immature Granulocyte # (Auto) 0.01 K/uL Sodium Level 138 mmol/L Potassium Level 4.0 mmol/L Chloride Level 107 mmol/L Carbon Dioxide Level 27 mmol/L Anion Gap 4.0 mmol/L Blood Urea Nitrogen 16 mg/dl Creatinine 0.98 mg/dl Est Creatinine Clear Calc Drug Dose 55.2 ml/min Estimated GFR () 82.3 Estimated GFR (Non- 71.0 BUN/Creatinine Ratio 16.2 Random Glucose 87 mg/dl Calcium Level 8.2 mg/dl Magnesium Level 1.9 mg/dl
[2016-08-29] MEDS ORDERED: BACITRACIN 50000 UNIT VIAL ONE (12:13)
[2016-08-29] MEDS ORDERED: BUPIVACAINE 0.5 % 5 MG/1 ML MPF 30ML VIAL ONE (12:13)
[2016-08-29] MEDS ORDERED: LIDOCAINE HCL 1% 20 ML VIAL ONE (12:13)
[2016-08-29] MEDS ORDERED: KEFZOL SPECIAL PROCEDURE STOCK 1 GM ADDVIAL IV ONE (12:19)
[2016-08-29] MEDS ORDERED: FENTANYL CITRATE INJ 50 MCG/1 ML 2 ML VIAL ONE (12:19)
[2016-08-29] MEDS ORDERED: MIDAZOLAM HCL 5 MG/ML 1 ML VIAL ONE (12:20)
--- NOTE | 2016-08-29 12:25 | Procedure Note ---
Pre-Mod Sedation Assessment General Date of Moderate Sedation: Aug 29, 2016. Vital Signs: Vital Signs Past 12 Hours Date Time Temp Pulse Resp B/P (MAP) Pulse Ox O2 Delivery O2 Flow Rate FiO2 08/29/16 11:45 36.3 64 20 144/80 (101) 95 Room Air 08/29/16 08:00 93 Room Air 08/29/16 07:50 36.8 61 18 148/81 (103) 93 Room Air 08/29/16 04:00 95 Room Air 08/29/16 03:59 36.7 64 16 132/71 (91) 93 Room Air Review Airway Class: III Pre-Sedation Airway Assessment Oral Cavity: Dentures Able to Visualize Vocal Cords: No Short Thick Neck: No Hx of Sleep Apnea: No Smoking Status: Current Every Day Smoker Mallampati Classification: Class II Procedure Planning Contraindications-for Mod Sed: None Yes Notes The planned sedation has been discussed with the patient and consent obtained. I have identified the patient, determined the appropriateness of sedation and have assessed the patient immediately prior to the procedure. All medicine(s) and interventions are by my order.
[2016-08-29] MEDS ORDERED: CEFAZOLIN SOD 1000MG/55 ML D5W IV SCH (13:00)
[2016-08-29] MEDS ORDERED: ACETAMINOPHEN 500 MG TAB PO PRN (13:15)
[2016-08-29] MEDS ORDERED: OXYCODONE HCL IR 5 MG TAB (IMMEDIATE RELEASE) PO PRN (13:15)
--- NOTE | 2016-08-29 13:52 | Progress Note ---
Internal Med Progress Note Date of Service: Aug 29, 2016. Provider Documentation: SUBJECTIVE: Patient is sitting in the chair and is in no apparent distress. Continues to feel better and had no dizzy spell overnight. Denies any chest pain/pressure or SOB. Has temporary pacemaker placed on 2016. Had few small pauses overnight. OBJECTIVE: Vital Signs-as noted below Examination: General Appearance: Alert/Awake and is in no apparent distress Head: normocephalic, atraumatic Eyes: normal inspection Neck: Supple, Midline trachea, No JVD. Respiratory/Chest: chest non-tender, lungs clear B/L, normal breath sounds, no respiratory distress, no accessory muscle use Cardiovascular: regular rate, rhythm, no edema, no murmur Abdomen/GI: normal bowel sounds, non tender, soft, + hernia Extremities/Musculoskeletal: normal capillary refill, no pedal edema Neurologic/Psych: no motor/sensory deficits, alert, normal mood/affect Skin: normal color Lymphatic: no adenopathy Lab data as noted below. ASSESSMENT & PLAN: Echocardiogram (08/27/2016) Normal LV chamber size and wall thickness. Normal LV systolic function, EF 65-70%. No segmental left ventricular wall motion abnormalities are noted. Grade I diastolic dysfunction. Aortic valve sclerosis moderate, without significant aortic valvular stenosis. SINGLE VIEW CHEST IMPRESSION: Emphysema and mild cardiac enlargement. No acute cardiopulmonary abnormality is identified. CT SCAN OF THE ABDOMEN AND PELVIS WITH IV CONTRAST FINDINGS: Lung bases: The heart is normal in size and without pericardial effusion. The coronary arteries are densely calcified. Emphysema is suspected. A fat-containing Bochdalek hernia is noted at the left lung base. There are foci of tree-in-bud nodularity seen in the right lower lobe. There is a ground glass lesion with central cystic change identified in the right lower lobe on image # 17. This measures up to 1.4 cm. A 4 mm nodule seen at the left lung base on image #7. No lobar consolidation or pleural effusion is identified. Liver: The contrast-enhanced liver is normal in size, contour, and attenuation. There is no intrahepatic biliary ductal dilatation. The hepatic veins and portal veins are patent. Gallbladder: Unremarkable. Spleen: Normal in size and attenuation. Pancreas: Moderately atrophic and grossly unremarkable. Adrenal glands: Unremarkable. Kidneys: The contrast enhanced kidneys are atrophic and without hydronephrosis. The kidneys enhance symmetrically. A retroaortic left renal vein is incidentally noted. Abdominal vasculature: There is advanced atherosclerotic calcification of the abdominal aorta and iliac arteries. An aortobiiliac stent graft is in place. The stent is widely patent. No significant aneurysm sac is identified. Bowel: There is a large left inguinal hernia which contains a non-obstructed segment of the sigmoid colon. No bowel obstruction is seen. The appendix is well-visualized and normal. A lipoma is incidentally noted in the ascending colon on axial image #128. Peritoneum: There is no intraperitoneal free air or abdominal ascites. Lymphadenopathy: None. Pelvic viscera: The prostate gland is mildly enlarged and heterogeneous. The bladder wall is thickened and trabeculated suggesting chronic outlet obstruction. A large left inguinal hernia is identified containing colon. Numerous pelvic flow was are observed. Skeletal structures: The skeletal structures are osteopenic. There is mild lumbosacral spondylosis. No lytic or blastic lesions are seen. IMPRESSION: 1. There are no acute infectious or inflammatory findings in the abdomen or pelvis. 2. There are foci of tree-in-bud nodularity identified at the right lung base. This is similar to previous and likely represents a chronic infectious/inflammatory pneumonitis or aspiration. Clinical correlation will be required. 3. There is a large left inguinal hernia which contains a non-obstructed segment of the sigmoid colon. No bowel obstruction is seen. 4. There is a 1.4 cm ground-glass lesion in the right lower lobe, which contains a small focus of central cystic change. This has not significantly changed from 01/19/2016 and should be considered low-grade neoplasm until otherwise. 5. An aortobiiliac stent graft is in place. The stent is widely patent and there is no significant residual aneurysm sac. 6. Additional findings as above. CT Head IMPRESSION: No acute intracranial findings Carotid Duplex IMPRESSION: No evidence of hemodynamically significant carotid stenosis. EKG Sinus bradycardia with 1st degree A-V block Non-specific intra-ventricular conduction block Abnormal ECG When compared with ECG of 19-JAN-2016 04:49, Fusion complexes are no longer Present Non-specific intra-ventricular conduction block has replaced Right bundle branch block 81 year old male with a PMH of CAD s/p stents, HTN, possible arrhythmia in the past; presents after a syncopal episode Syncope and Loss of Consciousness: Denies any symptoms prior to this episode States he does not have any hx. of arrhythmias, but is taking sotalol and does not know why. Consult HIM to obtain [place] cardiology notes Noted to have Complete Heart Block. -CT Head is negative for any acute finding -Reviewed findings of Echocardiogram -Carotid U/S shows no clinically significant finding -Ordered PT/OT -Cardiology consult reviewed. Thanks for input and discussed with Dr. Puri. -Temporary pacemaker has been placed and being evaluated for Permanent pacemaker later in afternoon.. -Holding Sotalol. -Lyme screen is negative. Mild ABDULAZIZ: Resolved with hydration. -Monitor GFR History CAD s/p stents: Stale. No current chest pain or acute acute cardiac issue other than above. -Continue aspirin, statin, sotalol History HTN: Continue Lisinopril 5 mg daily under parameter. Hypercholesterolemia: Continue Statin. DVT Prophylaxis: Sq Heparin. Code Status: FULL CODE Disposition: Discharge once is clinically stable as well cleared by cardiology. Vital Signs: Date Time Temp Pulse Resp B/P (MAP) Pulse Ox O2 Delivery O2 Flow Rate FiO2 08/29/16 16:00 95 Room Air 08/29/16 15:30 61 125/73 (90) 95 Room Air 08/29/16 15:00 60 16 116/72 (87) 91 Room Air 08/29/16 14:30 60 121/73 (89) 93 Room Air 08/29/16 14:00 64 121/64 (83) 94 Room Air 08/29/16 13:25 60 16 114/70 (85) 98 Room Air 08/29/16 13:20 60 16 118/71 (87) 98 Room Air 08/29/16 13:10 60 16 120/71 (87) 98 Room Air 08/29/16 12:00 Room Air 08/29/16 11:45 36.3 64 20 144/80 (101) 95 Room Air 08/29/16 08:00 93 Room Air 08/29/16 07:50 36.8 61 18 148/81 (103) 93 Room Air 08/29/16 04:00 95 Room Air 08/29/16 03:59 36.7 64 16 132/71 (91) 93 Room Air 08/29/16 00:00 95 Room Air 08/28/16 23:28 36.9 55 18 146/69 (94) 94 Room Air 08/28/16 20:00 95 Room Air 08/28/16 19:25 36.7 55 20 148/71 (96) 96 Room Air Lab Results: Results Past 24 Hours Test 08/29/16 06:54 Range/Units White Blood Count 4.73 4.8-10.8 K/uL Red Blood Count 3.74 4.7-6.1 M/uL Hemoglobin 11.3 14.0-18.0 g/dL Hematocrit 33.3 42-52 % Mean Corpuscular Volume 89.0 80-100 fL Mean Corpuscular Hemoglobin 30.2 25-34 pg Mean Corpuscular Hemoglobin Concent 33.9 32-36 g/dl Platelet Count 184 130-400 K/uL Mean Platelet Volume 8.5 7.4-10.4 fL Neutrophils (%) (Auto) 61.5 % Lymphocytes (%) (Auto) 23.7 % Monocytes (%) (Auto) 10.6 % Eosinophils (%) (Auto) 3.2 % Basophils (%) (Auto) 0.8 % Neutrophils # (Auto) 2.91 1.4-6.5 K/uL Lymphocytes # (Auto) 1.12 1.2-3.4 K/uL Monocytes # (Auto) 0.50 0.11-0.59 K/uL Eosinophils # (Auto) 0.15 0-0.5 K/uL Basophils # (Auto) 0.04 0-0.2 K/uL RDW Standard Deviation 43.0 36.4-46.3 fL RDW Coefficient of Variation 13.1 11.5-14.5 % Immature Granulocyte % (Auto) 0.2 % Immature Granulocyte # (Auto) 0.01 0.00-0.02 K/uL Sodium Level 138 136-145 mmol/L Potassium Level 4.0 3.5-5.1 mmol/L Chloride Level 107 98-107 mmol/L Carbon Dioxide Level 27 21-32 mmol/L Anion Gap 4.0 3-11 mmol/L Blood Urea Nitrogen 16 7-18 mg/dl Creatinine 0.98 0.60-1.40 mg/dl Est Creatinine Clear Calc Drug Dose 55.2 ml/min Estimated GFR () 82.3 Estimated GFR (Non- 71.0 BUN/Creatinine Ratio 16.2 10-20 Random Glucose 87 70-99 mg/dl Calcium Level 8.2 8.5-10.1 mg/dl Magnesium Level 1.9 1.8-2.4 mg/dl
--- NOTE | 2016-08-29 19:04 | Cardiology Consultation ---
Cardiology Consultation Date of Consultation: Aug 29, 2016. Requesting Physician: Saurav Lantigua Reason for Consultation: Complete heart block Pt evaluation today including: conversation w/ patient, physical exam, chart review, conversation w/ managing consultant clinical professor, conversation w/ attending History of Present Illness The patient is an 81-year-old gentleman with a history of coronary artery disease who presented to [facility] after an episode of syncope. Patient claims to have been feeling well leading up to the event. He was in the seated position at that time and event itself was witnessed. Patient states that he felt himself falling but still lost consciousness. He is brought to [facility] where he is noted to have some baseline conduction disease on EKG and later developed an episode of complete heart block. Based on the nature of the symptoms he was admitted for observation over the course of several days. He was noted to have additional episodes of sinus pauses but no episodes of complete heart block. Patient otherwise has been feeling well recently. He had a large trip planned involving driving through a good portion of the [facility] He is accustomed to routine physical activity and denies symptoms of dizziness or lightheadedness. He cannot recall suffering a syncopal episode previously. At the time of this interview the patient claims to be feeling well. He is somewhat frustrated with the duration of his hospitalization. He denied any symptoms currently such as dizziness or lightheadedness. He was hungry. Past Medical/Surgical History Complete heart block Coronary artery disease involving occlusion of the right coronary artery documented in 2010 Preserved LV systolic function Stage I diastolic dysfunction Inguinal hernia Peripheral vascular disease involving an abdominal aortic aneurysm Surgical history Stenting of abdominal aortic aneurysm Inguinal hernia repair Family History Noncontributory given the patient's advanced age. 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 Review of Systems Constitutional: + see HPI Respiratory: No see HPI, No cough, No sputum, No wheezing, No shortness of breath, No dyspnea on exertion, No dyspnea at rest, No hemoptysis, No problem reported Cardiac: No see HPI, No chest pain, No orthopnea, No PND, No edema, No claudication, No palpitations, No problem reported Abdomen: + pain Male : + see HPI Heme: + see HPI Endo: + see HPI Skin: + see HPI All Other Systems: Reviewed and Negative Allergies Coded Allergies: Sulfa Antibiotics (Unverified Allergy, Severe, ., 08/26/16) Medications Current Inpatient Medications Medications (Trade) Dose Ordered Sig/Jose Juan Route Start Time Stop Time Status Last Admin Dose Admin Ioversol (Optiray 320) 100 ml UD PRN IV 08/26/16 21:45 08/30/16 21:44 Heparin Sodium (Porcine) (Heparin Sq 5000 Unit/0.5ml) 5,000 unit Q8 SQ 08/27/16 07:30 09/26/16 07:29 Future Hold 08/29/16 05:43 5,000 UNIT Ondansetron HCl (Zofran Inj) 4 mg Q6H PRN IV 08/27/16 00:30 09/26/16 00:29 Aspirin (Ecotrin Tab) 81 mg DAILY PO 08/27/16 09:00 09/26/16 08:59 08/29/16 07:54 81 MG Lisinopril (Zestril Tab) 5 mg DAILY PO 08/27/16 09:00 09/26/16 08:59 08/29/16 07:54 5 MG Simvastatin (Zocor Tab) 20 mg QPM PO 08/27/16 21:00 09/26/16 20:59 08/28/16 21:01 20 MG Cefazolin Sodium 1000 mg/Dextrose 55 ml @ 100 mls/hr Q8H IV 08/29/16 22:00 08/30/16 21:59 Oxycodone HCl (Roxicodone Immediate Rel Tab) 5 mg Q6 PRN PO 08/29/16 13:15 09/12/16 13:14 Acetaminophen (Tylenol Tab) 500 mg Q4H PRN PO 08/29/16 13:15 09/28/16 13:14 Physical Exam Vital Signs Past 12 Hours Date Time Temp Pulse Resp B/P (MAP) Pulse Ox O2 Delivery O2 Flow Rate FiO2 08/29/16 16:00 95 Room Air 08/29/16 15:30 61 125/73 (90) 95 Room Air 08/29/16 15:00 60 16 116/72 (87) 91 Room Air 08/29/16 14:30 60 121/73 (89) 93 Room Air 08/29/16 14:00 64 121/64 (83) 94 Room Air 08/29/16 13:25 60 16 114/70 (85) 98 Room Air 08/29/16 13:20 60 16 118/71 (87) 98 Room Air 08/29/16 13:10 60 16 120/71 (87) 98 Room Air 08/29/16 12:00 Room Air 08/29/16 11:45 36.3 64 20 144/80 (101) 95 Room Air 08/29/16 08:00 93 Room Air 08/29/16 07:50 36.8 61 18 148/81 (103) 93 Room Air Constitutional: Level of Distress: NAD Lungs: Auscultation: no wheezing, no rales/crackles, no rhonchi Cardiovascular: Heart Auscultation: RRR, no murmurs, no rubs Extremities: no edema Neurologic: Gait & Station: pertinent finding (no focal deficits ) The patient is alert and oriented. Mood and affect appeared normal. He answered all questions appropriately. HEENT: Pupils are equal and reactive to light and accommodation. Extraocular movements are intact. The sclerae are anicteric. Neuro: Cranial nerves intact Neck: Patient's neck is supple. He has palpable carotid pulses bilaterally without bruits on auscultation. There is no evidence of jugular venous distention. The thyroid is not enlarged. Lungs: Clear to auscultation bilaterally. He has good air movement without use of accessory muscles. No rales wheezes or rhonchi. Cardiac: Heart demonstrates a regular rate and rhythm. Normal S1 and S2. No murmurs on examination. Pulses: The patient has palpable radial pulses bilaterally that are equal in intensity Extremities: There was no evidence of hypoperfusion. There is no cyanosis or clubbing. There is no edema. Skin: I did not appreciate any rashes on examination today. Data Laboratory Results: Last 24 Hours Test 08/29/16 06:54 White Blood Count 4.73 K/uL Red Blood Count 3.74 M/uL Hemoglobin 11.3 g/dL Hematocrit 33.3 % Mean Corpuscular Volume 89.0 fL Mean Corpuscular Hemoglobin 30.2 pg Mean Corpuscular Hemoglobin Concent 33.9 g/dl Platelet Count 184 K/uL Mean Platelet Volume 8.5 fL Neutrophils (%) (Auto) 61.5 % Lymphocytes (%) (Auto) 23.7 % Monocytes (%) (Auto) 10.6 % Eosinophils (%) (Auto) 3.2 % Basophils (%) (Auto) 0.8 % Neutrophils # (Auto) 2.91 K/uL Lymphocytes # (Auto) 1.12 K/uL Monocytes # (Auto) 0.50 K/uL Eosinophils # (Auto) 0.15 K/uL Basophils # (Auto) 0.04 K/uL RDW Standard Deviation 43.0 fL RDW Coefficient of Variation 13.1 % Immature Granulocyte % (Auto) 0.2 % Immature Granulocyte # (Auto) 0.01 K/uL Sodium Level 138 mmol/L Potassium Level 4.0 mmol/L Chloride Level 107 mmol/L Carbon Dioxide Level 27 mmol/L Anion Gap 4.0 mmol/L Blood Urea Nitrogen 16 mg/dl Creatinine 0.98 mg/dl Est Creatinine Clear Calc Drug Dose 55.2 ml/min Estimated GFR () 82.3 Estimated GFR (Non- 71.0 BUN/Creatinine Ratio 16.2 Random Glucose 87 mg/dl Calcium Level 8.2 mg/dl Magnesium Level 1.9 mg/dl Imaging: Normal chest x-ray EKG: Trifascicular block Telemetry reviewed: Episodes of complete heart block I reviewed the patient's for medical records from [facility]. These are dated 2010. An EKG obtained at that time revealed left bundle branch block. I reviewed his recent echocardiogram demonstrating preserved LV systolic function Assessment & Plan 1. Complete heart block: Patient appears to have significant conduction disease with evidence of complete heart block during this admission. Prior EKG did demonstrate left bundle branch block as well suggesting extensive disease and unreliable cardiac conduction. While the patient was on very low-dose sotalol I doubt this is the sole cause of his episode. Once again I think he has severe conduction disease and would benefit from permanent pacing as result. With his preserved LV systolic function and some element of AV itz conduction, I do not think a biventricular device is required currently. I did discuss the risks benefits and alternatives of a permanent pacemaker with the patient is willing to proceed today. 2. Sotalol use: Patient cannot recall the indication for use of sotalol. He did not seem familiar with the term atrial fibrillation is not currently being anticoagulated for this malady. It is he seems to think this was initiated subsequent to his catheterization in 2010. This point would seem reasonable discontinued this medication and monitor him for arrhythmias which require such treatment. 3. Coronary artery disease: Patient's catheterization report suggests chronic total occlusion of the right coronary artery. No current symptoms to suggest angina. Preserved LV systolic function. A once permanent pacemaker is in place we could consider re-initiation of beta-keyonna therapy if necessary.
--- NOTE | 2016-08-29 19:08 | Procedure Note ---
Procedure Note Date of Service Aug 29, 2016. Procedure Note Procedure performed: Implantation of dual-chamber permanent pacemaker Staff model maker apprentice: Dharmesh Olivera Indication: The patient is a 81-year-old gentleman who presented to [facility] after an episode of syncope. The patient was noted to have complete heart block subsequent to the episode. As result a dual-chamber device was recommended for symptomatic non reversible AV node dysfunction. Dual -chamber device was selected as the patient is currently in sinus rhythm which to maintain AV synchrony. Procedure detail: Patient was informed of the risks benefits and alternatives to the intended procedure he understood such which proceed. He was taken to the electrophysiology suite in a fasting state. Conscious sedation was administered per protocol and the patient was monitored electrocardiographically throughout today's procedure. Preoperative antibiotic was also administered. The left oral pectoris prepped and draped in usual sterile fashion. Subsequent to this maneuver incision was made at this site and carried down to the prepectoral fascia using sharp dissection. Electrocautery was also employ for dissection as well as for hemostasis. A device pocket was fashioned tissues above the pectoralis muscle. Subsequent to this maneuver left axillary vein was accessed twice using modified Seldinger technique. Sheaths were placed over guidewires at this site used to facilitate the passage of the pacing leads to the respective chambers under fluoroscopic guidance. This included right atrial and right ventricular leads. Adequate sensing and threshold parameters were obtained prior to Active fixation of these leads to the endocardial surface. The proximal portion of the leads were then sutured to the prepectoralis fascia using nonabsorbable suture. The device pocket was irrigated with an antibiotic solution. The leads were then attached to the device. The device Maze with the placed in the pocket and the pocket was closed in 3 layers of absorbable sutures. Steri-Strips and sterile dressing were applied. The device was tested noninvasively prior to conclusion of the procedure. The patient tolerated the procedure well, there were no immediate complications. New pulse generator: Dry [employer]. Model number [id number]. Serial number [id number] Right atrial lead: Dry [employer] model number 4076. Serial number [id number] Right ventricular lead. Dry Wall [employer]. Model 4. 076. Serial number [id number]
[2016-08-29] MEDS: SIMVASTATIN 20 MG TAB PO SCH (21:28)
[2016-08-29] MEDS: CEFAZOLIN IV 1,000 MG in DEXTROSE 5% 50ML 50 ML IV SCH (21:28)
[2016-08-30 03:48] VITALS: BP 121/74; PULSE 82; TEMP 36.9; O2SAT 93
[2016-08-30 04:00] VITALS: O2SAT 94
[2016-08-30] MEDS: CEFAZOLIN IV 1,000 MG in DEXTROSE 5% 50ML 50 ML IV SCH ×2 (05:10→13:21)
--- NOTE | 2016-08-30 06:43 | DIAGNOSTIC IMAGING REPORT ---
CHEST 2 VIEWS ROUTINE HISTORY:81 yearsMaleEXACT TIME ORDERED Evaluate for pneumothorax and lead placement COMPARISON: Chest radiograph 08/26/2016. TECHNIQUE: Frontal and lateral views of the chest. FINDINGS: There has been interval placement of a left pectoral pacer with leads overlying the right atrial appendage and right ventricle. The leads appear intact without pneumothorax. There is no pleural effusion or focal airspace consolidation. There is atherosclerosis of the aorta. The lungs are hyperinflated. The bones are grossly intact. IMPRESSION: Status post placement of a left pectoral pacer with leads appearing in appropriate position. No postprocedural pneumothorax. The above report was generated using voice recognition software. It may contain grammatical, syntax or spelling errors. Electronically signed by: Dionisio Gonzalez 08/30/2016 6:42 AM Dictated Date/Time: 08/30/2016 6:39 AM
[2016-08-30 07:29] VITALS: BP 132/80; PULSE 77; TEMP 36.6; O2SAT 94
[2016-08-30] MEDS: LISINOPRIL 5 MG TAB PO SCH (07:32)
[2016-08-30] MEDS: ASPIRIN 81 MG ECTAB PO SCH (07:32)
[2016-08-30 07:53] LABS: BASO % 0.3 %; BASO ABS # 0.02 K/uL (0-0.2); COMPLETE YES; EOS % 0.8 %; HEMATOCRIT 38.2 % (42-52); IG% 0.3 %; LYMPH % 18.6 %; LYMPH ABS # 1.33 K/uL (1.2-3.4); MEAN CORPUSCULAR HEMOGLOBIN 29.2 pg (25-34); MEAN CORPUSCULAR HGB CONC 33.5 g/dl (32-36); MEAN PLATELET VOLUME 8.6 fL (7.4-10.4); MONO % 9.2 %; NEUT % 70.8 %; PLATELET COUNT 198 K/uL (130-400); RED BLOOD COUNT 4.39 M/uL (4.7-6.1); WHITE BLOOD COUNT 7.15 K/uL (4.8-10.8)
[2016-08-30 08:00] VITALS: O2SAT 97
[2016-08-30 08:20] LABS: CALCIUM 8.8 mg/dl (8.5-10.1); POTASSIUM 4.1 mmol/L (3.5-5.1)
--- NOTE | 2016-08-30 08:29 | Progress Note ---
Progress Note Date of Service Aug 30, 2016. Progress Note EP Follow-up: Patient feeling well. Minimal pain at the implant site. Wound C/D/I without hematoma or ecchymosis. Interrogation reveals good lead function (full report placed on chart). More ventricular pacing than necessary but should improve with proprietary MVP settings. CXR demonstrates good lead position without PTX Impression: Successful implant of dual chamber pacemaker without complication. Plan: OK for discharge from a pacemaker standpoint. Keep wound dry and steri-strip intact for 1 week No lifting left arm above shoulder or behind neck for 6 weeks F/U [facility] pacemaker clinic per routine for wound check (generally within 1 week)
[2016-08-30] MEDS ORDERED: SOTALOL HCL 80 MG TAB PO ONE (10:30)
--- NOTE | 2016-08-30 10:33 | Cardiology Follow-Up ---
Subjective General Date of Service: Aug 30, 2016. Chief Complaint: follow up syncope Pt evaluation today including: conversation w/ patient, physical exam History of Present Illness The patient is a 81 year old male seen in general cardiology follow-up today. Patient tolerated implantation of frequent response of dual-chamber [employer] pacemaker yesterday. Postprocedure chest x-ray reveals appropriate lead placement and no pneumothorax. Pacemaker check reveals appropriate function. Patient has Ardie been seen by Dr. Olivera from this morning who provided a favorable report stated the patient was stable for discharge from a pacemaker standpoint. Patient feels well. He denies any discomfort in his pacemaker site. He is walking in the hallway and feels well. Telemetry reveals stable sinus rhythm with demand atrial and AV sequential pacemaker activity. Allergies Coded Allergies: Sulfa Antibiotics (Unverified Allergy, Severe, ., 08/26/16) Social History Smoking Status: Current Every Day Smoker Hx Tobacco Use In Past Year?: Yes Hx Alcohol Use - Type And Amou: Yes (Rarely) Hx Substance Use - Type And Am: No Problem List Medical Problems: (1) Bronchitis Status: Acute (2) Dehydration Status: Acute (3) Episode of syncope Status: Acute (4) Intermittent palpitations Status: Acute Physical Exam Vital Signs Last Vital Signs Documentation Date Time Temp Pulse Resp B/P (MAP) Pulse Ox O2 Delivery O2 Flow Rate FiO2 08/30/16 08:00 97 Room Air 08/30/16 07:29 36.6 77 20 132/80 (97) Physical Exam Constitutional: Level of Distress: NAD Lungs: Auscultation: no wheezing, no rales/crackles, no rhonchi Cardiovascular: Heart Auscultation: RRR, no murmurs, no rubs, pertinent finding (left infraclavicular pacemaker pocket site is clean dry and intact with Steri-Strips , no hematoma noted) Extremities: no edema Neurologic: Gait & Station: pertinent finding (no focal deficits ) Assessment and Plan Assessment and Plan Summary of TTecho performed 08/27/16: * -- Conclusions -- * Normal LV chamber size and wall thickness. * Normal LV systolic function, EF 65-70%. * No segmental left ventricular wall motion abnormalities are noted. * Grade I diastolic dysfunction. * Aortic valve sclerosis moderate, without significant aortic valvular stenosis. Impression: 81 year old male 1. Presented with syncope -symptoms were reproduced and associate with intermittent complete AV block during hospital stay 08/27, 08/28/16, required transient support with transcutaneous pacemaker. -EKG this am reveals sinus bradycardia at 57 bpm, with long first degree AV block, bifascicular block (RBBB, LAFB) -Preserved LVEF on echocardiogram this admission -On low dose sotalol , 40 mg BID , pre-hospital, -outside records reviewed and he was apparently on sotalol for past history of paroxysmal atrial fibrillation. He has not been anticoagulated. 2. H/o CAD, remote SD, cardiac cath. -Records from [place] received. His last cardiac catheterization was performed in [place] in 2010. The report describes mild nonobstructive disease in the left main, LAD, circumflex coronary arteries. The right coronary artery had a 90% mid stenosis and a stenosis of 100% in the distal RCA for which medical management was recommended. The previously placed circumflex stents were patent. This cardiac catheterization had apparently been performed in the setting of chest pain apical ischemia on a nuclear stress test. 3. h/o endovascular AAA repair, follows with vascular at [facility], and per pt he has been following for routine imaging and clinical assessment there 4. HTN 5. Dyslipidemia 6. Inguinal hernia, left sided, for which patient is contemplating outpatient repair Plan: Patient feels well and is eager for discharge. Recommend and he is stable for discharge from my standpoint after he receives his morning dose of sotalol, and skin completes his course of postprocedure cefazolin as ordered by Dr. Olivera. At this point I recommend reinitiating his prior to hospital dose of sotalol 80 mg tablet, one half tablet or 40 mg by mouth twice a day. Future considerations include transitioning him to metoprolol if he does not have significant atrial fibrillation noted on pacemaker checks in the future. I do not want to increase his sotalol dose at present as he is eager for discharge, stable from an arrhythmia standpoint, and increasing his dose would require 72 hours of additional telemetry monitoring. He is stable from an ischemic heart disease standpoint with preserved LVEF. Recommend discharge on his prior to hospital cardiology medications including aspirin 81 mg daily, lisinopril 5 mg daily, sotalol 40 mg twice a day, and simvastatin 20 mg daily. The patient is going to transition his cardiac care to our group. He is scheduled to see me in a week on 09/05/16 at 1:30 PM at [facility]. I provided a business card that has are office address on it and telephone number. At that time he'll see me and have his pacemaker check/device clinic enrollment appointment together. I have copied the post implanted electrical cardiac device care instructions below which should be included in his discharge instructions: Implanted cardiac device post discharge care instructions: ACTIVITY RECOMMENDATIONS: * Do not raise affected arm over head for 2 weeks. SPECIAL CARE INSTRUCTIONS: * If bleeding occurs, apply direct pressure to area for 5 minutes. * Call your doctor if you have severe pain, fever, drainage or bleeding at site. * Keep dressing on and dry for 48 hours then remove. * Keep any scheduled doctor's appointment. * Implant Card - hand held device with website information given. SKIN IRRITATION: * You may experience some redness and/or swelling in the area where radiation was administered. If any skin irritation occurs, please contact your family physician. FOLLOW UP VISIT: Keep any scheduled doctor appointments. Possible with Dr. Lantigua, [facility], 09/05/69 1:30 PM patient arrival. Ambar Lantigua, Laboratory Results Last 24 Hours Test 08/30/16 07:35 White Blood Count 7.15 K/uL Red Blood Count 4.39 M/uL Hemoglobin 12.8 g/dL Hematocrit 38.2 % Mean Corpuscular Volume 87.0 fL Mean Corpuscular Hemoglobin 29.2 pg Mean Corpuscular Hemoglobin Concent 33.5 g/dl Platelet Count 198 K/uL Mean Platelet Volume 8.6 fL Neutrophils (%) (Auto) 70.8 % Lymphocytes (%) (Auto) 18.6 % Monocytes (%) (Auto) 9.2 % Eosinophils (%) (Auto) 0.8 % Basophils (%) (Auto) 0.3 % Neutrophils # (Auto) 5.06 K/uL Lymphocytes # (Auto) 1.33 K/uL Monocytes # (Auto) 0.66 K/uL Eosinophils # (Auto) 0.06 K/uL Basophils # (Auto) 0.02 K/uL RDW Standard Deviation 41.6 fL RDW Coefficient of Variation 12.8 % Immature Granulocyte % (Auto) 0.3 % Immature Granulocyte # (Auto) 0.02 K/uL Sodium Level 134 mmol/L Potassium Level 4.1 mmol/L Chloride Level 102 mmol/L Carbon Dioxide Level 24 mmol/L Anion Gap 8.0 mmol/L Blood Urea Nitrogen 16 mg/dl Creatinine 1.00 mg/dl Est Creatinine Clear Calc Drug Dose 53.9 ml/min Estimated GFR () 80.3 Estimated GFR (Non- 69.3 BUN/Creatinine Ratio 16.0 Random Glucose 94 mg/dl Calcium Level 8.8 mg/dl
[2016-08-30 12:36] VITALS: BP 125/76; PULSE 61; TEMP 36.4; O2SAT 96
[2016-08-30] MEDS ORDERED: ACET-24 PO (15:08)
[2016-08-30 15:15] VITALS: BP 125/76; PULSE 61; TEMP 36.4; O2SAT 96
--- NOTE | 2016-08-30 15:16 | Discharge Summary ---
Discharge Summary Date of Service Aug 30, 2016. Discharge Summary Admission Date: Aug 27, 2016 at 00:28 Discharge Date: Aug 30, 2016 Discharge Disposition: Home Principal Diagnosis: Syncope and Loss of Consciousness: Secondary Diagnoses/Problems: Please refer to hospital course below. Procedures: Implantation of dual-chamber permanent pacemaker 08/29/[address] SCAN OF THE ABDOMEN AND PELVIS WITH IV CONTRAST CLINICAL HISTORY: Dizziness. Syncope. COMPARISON STUDY: Chest CT dated 01/19/2016. TECHNIQUE: Following the IV administration of 94 cc of Optiray 320, CT scan of the abdomen and pelvis is performed from the lung bases to the proximal femora. Images are reviewed in the axial, sagittal, and coronal planes. IV contrast was administered without complication. Automated dose control exposure was utilized. CT DOSE: 373.08 mGy.cm FINDINGS: Lung bases: The heart is normal in size and without pericardial effusion. The coronary arteries are densely calcified. Emphysema is suspected. A fat-containing Bochdalek hernia is noted at the left lung base. There are foci of tree-in-bud nodularity seen in the right lower lobe. There is a groundglass lesion with central cystic change identified in the right lower lobe on image #17. This measures up to 1.4 cm. A 4 mm nodule seen at the left lung base on image #7. No lobar consolidation or pleural effusion is identified. Liver: The contrast-enhanced liver is normal in size, contour, and attenuation. There is no intrahepatic biliary ductal dilatation. The hepatic veins and portal veins are patent. Gallbladder: Unremarkable. Spleen: Normal in size and attenuation. Pancreas: Moderately atrophic and grossly unremarkable. Adrenal glands: Unremarkable. Kidneys: The contrast enhanced kidneys are atrophic and without hydronephrosis. The kidneys enhance symmetrically. A retroaortic left renal vein is incidentally noted. Abdominal vasculature: There is advanced atherosclerotic calcification of the abdominal aorta and iliac arteries. An aortobiiliac stent graft is in place. The stent is widely patent. No significant aneurysm sac is identified. Bowel: There is a large left inguinal hernia which contains a nonobstructed segment of the sigmoid colon. No bowel obstruction is seen. The appendix is well-visualized and normal. A lipoma is incidentally noted in the ascending colon on axial image #128. Peritoneum: There is no intraperitoneal free air or abdominal ascites. Lymphadenopathy: None. Pelvic viscera: The prostate gland is mildly enlarged and heterogeneous. The bladder wall is thickened and trabeculated suggesting chronic outlet obstruction. A large left inguinal hernia is identified containing colon. Numerous pelvic flow was are observed. Skeletal structures: The skeletal structures are osteopenic. There is mild lumbosacral spondylosis. No lytic or blastic lesions are seen. IMPRESSION: 1. There are no acute infectious or inflammatory findings in the abdomen or pelvis. 2. There are foci of tree-in-bud nodularity identified at the right lung base. This is similar to previous and likely represents a chronic infectious/inflammatory pneumonitis or aspiration. Clinical correlation will be required. 3. There is a large left inguinal hernia which contains a nonobstructed segment of the sigmoid colon. No bowel obstruction is seen. 4. There is a 1.4 cm groundglass lesion in the right lower lobe, which contains a small focus of central cystic change. This has not significantly changed from 01/19/2016 and should be considered low-grade neoplasm until otherwise. 5. An aortobiiliac stent graft is in place. The stent is widely patent and there is no significant residual aneurysm sac. 6. Additional findings as above. Echo: * -- Conclusions -- * Normal LV chamber size and wall thickness. * Normal LV systolic function, EF 65-70%. * No segmental left ventricular wall motion abnormalities are noted. * Grade I diastolic dysfunction. * Aortic valve sclerosis moderate, without significant aortic valvular stenosis. Consultations: Auto Was[facility] Dr. Lantigua and Dr. Olivera Pending Studies/Follow-Up: Please refer to hospital course below. Medication Reconciliation New Medications: Acetaminophen (Sb Non-Aspirin Extra Stre) 500 Mg Tab 500 MG PO Q4H PRN for Pain for 5 Days do not take more than 3,000mg/day Continued Medications: Aspirin (Aspirin Ec) 81 Mg Tab 81 MG PO DAILY Lisinopril (Zestril) 5 Mg Tab 5 MG PO DAILY, TAB Simvastatin (Zocor) 20 Mg Tab 20 MG PO QPM, TAB Sotalol Hcl (Sotalol Hcl) 80 Mg Tab 0.5 TAB PO BID, TAB Admission Information HPI (per Admitting provider): This is an 81 year old male with a PMH of CAD s/p stents, HTN, possible arrhythmia in the past; presents after a syncopal episode and loss of consciousness. Patient states that he was seated in a chair when all of a sudden he became dizzy and lost consciousness. He states he only lost consciousness for a few seconds; his saw this occur; no bowel/bladder incontinence; he has never had this episode before. Only complaint currently is inguinal pain from a hernia. Denies chest pain/palpitations/shortness of breath. Physical Exam (per Admitting): General Appearance: no apparent distress Head: normocephalic, atraumatic Eyes: normal inspection Respiratory/Chest: chest non-tender, lungs clear, normal breath sounds, no respiratory distress, no accessory muscle use Cardiovascular: regular rate, rhythm, no edema, no murmur Abdomen/GI: normal bowel sounds, non tender, soft, + hernia Extremities/Musculoskelatal: normal capillary refill, no pedal edema Neurologic/Psych: no motor/sensory deficits, alert, normal mood/affect Skin: normal color Lymphatic: no adenopathy Hospital Course Syncope and Loss of Consciousness, Complete Heart Block -symptoms were reproduced and associated with intermittent complete AV block during hospital stay 08/27, 08/28/16, required transient support with transcutaneous pacemaker Implantation of dual-chamber permanent pacemaker done on 08/29/[address] Dharmesh Olivera - evaluated by Auto [facility] Dr. Lantigua, recommend to resume usual cardiac medications - ff up with Auto Was[facility] Dr. Lantigua in 1 week for pacemaker check - other work up: -CT Head is negative for any acute finding -Carotid U/S shows no clinically significant finding Lung Nodules, Left Inguinal Hernia - seen on CT abd/pelvis (full report above) - please follow up accordingly Mild Acue Renal Failure - Resolved with hydration. History CAD s/p stents - stable -Continue aspirin, statin, sotalol History of HTN: Continue Lisinopril 5 mg daily under parameter. Hypercholesterolemia: Continue Statin. Dispo ff up with [facility] in 1 week, PCP in 2 weeks 30 minutes Total time spent on discharge = This includes examination of the patient, discharge planning, medication reconciliation, and communication with other providers. Discharge Instructions Discharge Instructions Date of Service Aug 30, 2016. Admission Reason for Admission: Syncope Discharge Discharge Diagnosis / Problem: Syncope, Complete Heart Block Discharge Goals Goal(s): Decrease discomfort Activity Recommendations Activity Limitations: per Instructions/Follow-up section Lifting Limitations: until after follow-up appointment Exercise/Sports Limitations: until after follow-up appointment May Resume Sexual Activity: after follow-up appointment Driving or Machine Use: no driving until cleared by [facility] Instructions / Follow-Up Instructions / Follow-Up .ACTIVITY RECOMMENDATIONS: * Do not raise affected arm over head for 2 weeks. SPECIAL CARE INSTRUCTIONS: * If bleeding occurs, apply direct pressure to area for 5 minutes. * Call your doctor if you have severe pain, fever, drainage or bleeding at site. * Keep dressing on and dry for 48 hours then remove. * Keep any scheduled doctor's appointment. * Implant Card - hand held device with website information given. SKIN IRRITATION: * You may experience some redness and/or swelling in the area where radiation was administered. If any skin irritation occurs, please contact your family physician. FOLLOW UP; Follow up with Auto Washer Dr. Lantigua [facility], 09/05/69 1:30 PM (Tel. No. ) Follow up with Primary Care Physician in 1 week. Current Hospital Diet Patient's current hospital diet: AHA Diet (Heart Healthy) Discharge Diet Recommended Diet: AHA Diet (Heart Healthy) Procedures Procedures Performed: Implantation of dual-chamber permanent pacemaker 08/29/16 Pending Studies Studies pending at discharge: yes List of pending studies: Pacemaker Check with Dr. Lantigua - [facility], in [facility] 09/05/16 at 1:30pm. Medical Emergencies . Who to Call and When: Medical Emergencies: If at any time you feel your situation is an emergency, please call 911 immediately. . Non-Emergent Contact Non-Emergency issues call your: Primary Care Provider, [facility] Contact Number: Dr. Lantigua Auto [facility]: Tel. No. ) Call Non-Emergent contact if: you have a fever, your pain is not controlled, wound has increased drainage, wound has increased redness, wound has increased pain, you have any medication questions . Past History Medical & Surgical History: (1) Syncope (2) Inguinal hernia . "Provider Documentation" section prepared by Zach Mercer. . VTE Core Measure Inpt VTE Proph given/why not?: Unfractionated heparin SQ
[2016-08-30] MEDS ORDERED: SOTALOL HCL 80 MG TAB PO SCH (21:00)
--- NOTE | 2016-09-01 20:02 | Progress Note ---
Medicine Progress Note Date & Time of Visit: Sep 01, 2016 at 19:58. Subjective delayed entry date of service 08/30/16 seen sitting up in bed, comfortable states he feels fine overall pacemaker site somewhat sore no bleeding, discharge denies dyspnea, dizziness, palpitations denies other symptoms states he is ready and would like to be discharged soon Objective Physical Exam: General- oriented x 3, not in distress, speaks in sentences Eyes-EOMI, anicteric Neck- supple, no JVD Lungs- clear breath sounds bilaterally Heart- regular rhythm; no murmur, normal rate pacemaker site: wound well opposed, no discharge, mild erythema surrounding, no swelling Abdomen- normal bowel sounds, soft, nontender Extremities- no pretibial edema, no calf tenderness; peripheral pulses intact Neuro- alert, oriented x 3 no gross deficits Skin- warm & dry Assessment & Plan Syncope and Loss of Consciousness, Complete Heart Block -symptoms were reproduced and associated with intermittent complete AV block during hospital stay 08/27, 08/28/16, required transient support with transcutaneous pacemaker Implantation of dual-chamber permanent pacemaker done on 08/29/[address] Dharmesh Olivera - evaluated by Conference Assistant Dr. Lantigua, recommend to resume usual cardiac medications - ff up with Conference Assistant Dr. Lantigua in 1 week for pacemaker check - other work up: -CT Head is negative for any acute finding -Carotid U/S shows no clinically significant finding Lung Nodules, Left Inguinal Hernia - seen on CT abd/pelvis follow up accordingly as outpatient Mild Acute Renal Failure - Resolved with hydration. History CAD s/p stents - stable -Continue aspirin, statin, sotalol History of HTN: Continue Lisinopril 5 mg daily under parameter. Hypercholesterolemia: Continue Statin. Dispo ff up with Conference Assistant in 1 week, PCP in 2 weeks Consultants: Conference Assistant Dr. Lantigua and Dr. Olivera Procedures: Implantation of dual-chamber permanent pacemaker 08/29/[address] SCAN OF THE ABDOMEN AND PELVIS WITH IV CONTRAST CLINICAL HISTORY: Dizziness. Syncope. COMPARISON STUDY: Chest CT dated 01/19/2016. TECHNIQUE: Following the IV administration of 94 cc of Optiray 320, CT scan of the abdomen and pelvis is performed from the lung bases to the proximal femora. Images are reviewed in the axial, sagittal, and coronal planes. IV contrast was administered without complication. Automated dose control exposure was utilized. CT DOSE: 373.08 mGy.cm FINDINGS: Lung bases: The heart is normal in size and without pericardial effusion. The coronary arteries are densely calcified. Emphysema is suspected. A fat-containing Bochdalek hernia is noted at the left lung base. There are foci of tree-in-bud nodularity seen in the right lower lobe. There is a groundglass lesion with central cystic change identified in the right lower lobe on image #17. This measures up to 1.4 cm. A 4 mm nodule seen at the left lung base on image #7. No lobar consolidation or pleural effusion is identified. Liver: The contrast-enhanced liver is normal in size, contour, and attenuation. There is no intrahepatic biliary ductal dilatation. The hepatic veins and portal veins are patent. Gallbladder: Unremarkable. Spleen: Normal in size and attenuation. Pancreas: Moderately atrophic and grossly unremarkable. Adrenal glands: Unremarkable. Kidneys: The contrast enhanced kidneys are atrophic and without hydronephrosis. The kidneys enhance symmetrically. A retroaortic left renal vein is incidentally noted. Abdominal vasculature: There is advanced atherosclerotic calcification of the abdominal aorta and iliac arteries. An aortobiiliac stent graft is in place. The stent is widely patent. No significant aneurysm sac is identified. Bowel: There is a large left inguinal hernia which contains a nonobstructed segment of the sigmoid colon. No bowel obstruction is seen. The appendix is well-visualized and normal. A lipoma is incidentally noted in the ascending colon on axial image #128. Peritoneum: There is no intraperitoneal free air or abdominal ascites. Lymphadenopathy: None. Pelvic viscera: The prostate gland is mildly enlarged and heterogeneous. The bladder wall is thickened and trabeculated suggesting chronic outlet obstruction. A large left inguinal hernia is identified containing colon. Numerous pelvic flow was are observed. Skeletal structures: The skeletal structures are osteopenic. There is mild lumbosacral spondylosis. No lytic or blastic lesions are seen. IMPRESSION: 1. There are no acute infectious or inflammatory findings in the abdomen or pelvis. 2. There are foci of tree-in-bud nodularity identified at the right lung base. This is similar to previous and likely represents a chronic infectious/inflammatory pneumonitis or aspiration. Clinical correlation will be required. 3. There is a large left inguinal hernia which contains a nonobstructed segment of the sigmoid colon. No bowel obstruction is seen. 4. There is a 1.4 cm groundglass lesion in the right lower lobe, which contains a small focus of central cystic change. This has not significantly changed from 01/19/2016 and should be considered low-grade neoplasm until otherwise. 5. An aortobiiliac stent graft is in place. The stent is widely patent and there is no significant residual aneurysm sac. 6. Additional findings as above. Echo: * -- Conclusions -- * Normal LV chamber size and wall thickness. * Normal LV systolic function, EF 65-70%. * No segmental left ventricular wall motion abnormalities are noted. * Grade I diastolic dysfunction. * Aortic valve sclerosis moderate, without significant aortic valvular stenosis.
== END 2016-08-30 15:27 | disposition home or self-care (01) | DRG 243 ==
LOC: C.EDB 19:30 → C.2T 08-27 00:28 → ENRESERV 08-27 00:57
PROVIDERS: ADMIT Family Medicine; ATTEND Internal Medicine
PROC: 0JH606Z Insertion of Pacemaker, Dual Chamber into Chest Subcutaneous Tissue and Fascia, Open Approach (ICD-10-PCS; principal; 2016-08-29 12:33)
PROC: 02HK0JZ Insertion of Pacemaker Lead into Right Ventricle, Open Approach (ICD-10-PCS; principal; 2016-08-29 12:33)
DX: I44.2 Atrioventricular block, complete (principal); N17.9 Acute kidney failure, unspecified; F17.200 Nicotine dependence, unspecified, uncomplicated; I10 Essential (primary) hypertension; K40.90 Unilateral inguinal hernia, without obstruction or gangrene, not specified as recurrent; I25.10 Atherosclerotic heart disease of native coronary artery without angina pectoris; E78.00 Pure hypercholesterolemia, unspecified; Z79.82 Long term (current) use of aspirin

== ENCOUNTER 2017-01-02 06:58 | Day surgery (SDC) | payer OTHER ==
[2016-12-28 09:22] VITALS: BMI 23.0
--- NOTE | 2016-12-28 10:04 | PAT Medication Instructions ---
Service Date Dec 28, 2016. Current Home Medication List Aspirin (Aspirin Ec), 81 MG PO QAM Lisinopril (Zestril), 5 MG PO QAM Simvastatin (Zocor), 20 MG PO QPM Sotalol Hcl (Sotalol Hcl), 0.5 TAB PO BID Medication Instructions For Your Scheduled Surgery - Hold the following medications the morning of surgery: Lisinopril (Zestril), 5 MG PO QAM - Take the following medications the morning of surgery with a sip of water OTHERWISE NOTHING TO EAT OR DRINK AFTER MIDNIGHT: Aspirin (Aspirin Ec), 81 MG PO QAM (TIME DEPENDING) Sotalol Hcl (Sotalol Hcl), 0.5 TAB PO BID (TIME DEPENDING) - Take the following medications as scheduled the night before surgery: Sotalol Hcl (Sotalol Hcl), 0.5 TAB PO BID Simvastatin (Zocor), 20 MG PO QPM If you have any questions please call us at [phone] or [phone] or [phone]
[2016-12-28 10:33] LABS: BASO % 0.7 %; BASO ABS # 0.04 K/uL (0-0.2); COMPLETE YES; EOS % 3.2 %; HEMATOCRIT 37.6 % (42-52); IG% 0.4 %; LYMPH % 31.2 %; LYMPH ABS # 1.78 K/uL (1.2-3.4); MEAN CELL VOLUME 90.4 fL (80-100); MEAN CORPUSCULAR HEMOGLOBIN 30.5 pg (25-34); MEAN CORPUSCULAR HGB CONC 33.8 g/dl (32-36); MEAN PLATELET VOLUME 8.4 fL (7.4-10.4); MONO % 9.5 %; PLATELET COUNT 188 K/uL (130-400); RED BLOOD COUNT 4.16 M/uL (4.7-6.1)
[2016-12-28 11:25] LABS: BUN/CREATININE RATIO 12.2 (10-20); CALCIUM 8.5 mg/dl (8.5-10.1); POTASSIUM 4.1 mmol/L (3.5-5.1)
[~2017-01-02] VITALS: Ht 172.7 cm; Wt 70.2 kg
[~2017-01-02 06:58] MED LIST changes: -ATOR-24 PO; +CEFAZOLIN 2000MG IV PUSH 10 ML IV SCH; +LACTATED RINGER'S 1000ML 1,000 ML IV SCH; +SOTA80TA PO
[2017-01-02 07:40] VITALS: BP 134/66; PULSE 60; TEMP 36.5; Ht 172.7 cm; Wt 70.2 kg
[2017-01-02 07:47] VITALS: BP 134/66; PULSE 60; TEMP 36.5; O2SAT 97
[2017-01-02] MEDS ORDERED: ONDANSETRON INJ 2 MG/ML 2 ML VIAL ONE (08:07)
[2017-01-02] MEDS ORDERED: GLYCOPYRROLATE INJ 0.2 MG/ML VIAL ONE (08:07)
[2017-01-02] MEDS ORDERED: LIDOCAINE HCL 2% 2 ML VIAL (20MG/ML) ONE (08:07)
[2017-01-02] MEDS ORDERED: PROPOFOL IV EMULSION 10 MG/ML 20 ML VIAL IV ONE (08:07)
[2017-01-02] MEDS ORDERED: NEOSTIGMINE METHYLSULFATE 5 MG/5 ML SYR ONE (08:07)
[2017-01-02] MEDS ORDERED: FENTANYL CITRATE INJ 50 MCG/1 ML 2 ML VIAL ONE (08:07)
[2017-01-02] MEDS ORDERED: ROCURONIUM BROMIDE 10 MG/ML 5 ML VIAL IV ONE (08:07)
[2017-01-02] MEDS ORDERED: DEXAMETHASONE SOD INJ 4 MG/ML VIAL ONE (08:07)
[2017-01-02] MEDS ORDERED: ATROPINE SULFATE 0.1 MG/ML 5ML SYR IV PRN (08:30)
[2017-01-02] MEDS ORDERED: MEPERIDINE HCL 25 MG/ML CARP IV PRN (08:30)
[2017-01-02] MEDS ORDERED: HYDROmorphone INJ 1 MG/ML SYR IV PRN (08:30)
[2017-01-02] MEDS ORDERED: FENTANYL CITRATE INJ 50 MCG/1 ML 2 ML VIAL IV PRN (08:30)
[2017-01-02] MEDS ORDERED: EpHEDrine SULFATE INJ 50 MG/ML AMP IV PRN (08:30)
[2017-01-02] MEDS ORDERED: ONDANSETRON INJ 2 MG/ML 2 ML VIAL IV PRN ×2 (08:30→11:45)
[2017-01-02] MEDS ORDERED: LABETALOL HCL IV 5 MG/ML 20ML IV PRN (08:30)
[2017-01-02] MEDS ORDERED: BUPIVACAINE 0.5 % 5 MG/1 ML MPF 30ML VIAL ONE (08:55)
--- NOTE | 2017-01-02 09:11 | History & Physical Bridge Note ---
H&P Re-Evaluation Bridge Note: I have examined the patient, reviewed the History & Physical and in the interval since the performance of the History & Physical I have noted the following changes of clinical significance: No changes noted
[2017-01-02] MEDS ORDERED: EpHEDrine SULFATE 50MG/5ML SYR ONE (10:30)
[2017-01-02] MEDS ORDERED: PHENYLEPHRINE 100MCG/ML 5ML SYR ONE (10:30)
--- NOTE | 2017-01-02 11:30 | Discharge Instructions ---
Discharge Instructions Date of Service Jan 02, 2017. Admission Reason for Admission: Recurrent Left Inguinal Hernia Discharge Discharge Diagnosis / Problem: Recurrent left inguinal hernia Discharge Goals Goal(s): Decrease discomfort Activity Recommendations Activity Limitations: per Instructions/Follow-up section Lifting Limitations: no more than 10 pounds (for 6 weeks) Shower/Bathe: tomorrow (shower only) . Instructions / Follow-Up Instructions / Follow-Up ACTIVITY RECOMMENDATIONS: * Walk as much as possible. * No heavy lifting (>10 lbs.) for 6 weeks. SPECIAL CARE INSTRUCTIONS: * Ice to hernia repair site on and off until bedtime tonight. * May shower in 24 hours. Let water run over area and pat dry. * Leave steri strips on for one week. * Call the surgeon's office with any questions or concerns - (ex. temperature higher than 101 degrees F, excessive bleeding or pain). MEDICATIONS: Resume previous medications unless instructed otherwise by your surgeon. * Ibuprofen 600 mg every 6 hours with food * Percocet 1 every 4 hours, as needed for pain FOLLOW UP VISIT: If not already scheduled, please call the office to schedule a two week follow- up appointment. Office number Current Hospital Diet Patient's current hospital diet: Discharge Diet Recommended Diet: Regular Diet Procedures Procedures Performed: Repair of Recurrent Left Inguinal Hernia Repair with Mesh Pending Studies Studies pending at discharge: no Medical Emergencies . Who to Call and When: Medical Emergencies: If at any time you feel your situation is an emergency, please call 911 immediately. . Non-Emergent Contact Non-Emergency issues call your: Primary Care Provider, Surgeon Call Non-Emergent contact if: your pain is worsening, wound has increased drainage, wound has increased redness . "Provider Documentation" section prepared by Ricardo Perrin. . VTE Core Measure Inpt VTE Proph given/why not?: Treatment not indicated
[2017-01-02] MEDS ORDERED: SODIUM CHLORIDE 0.9% 1000ML 1,000 ML IV SCH (11:31)
--- NOTE | 2017-01-02 11:31 | [facility] Post Operative Brief Note ---
Immediate Operative Summary Operative Date Jan 02, 2017. Pre-Operative Diagnosis Recurrent left inguinal hernia Post-Operative Diagnosis Recurrent left inguinal hernia Procedure(s) Performed Repair of Recurrent Left Inguinal Hernia Repair with Mesh Surgeon Dr. Ricardo Perrin Bushing And Broach Operator Surgeon(s) Nga Rojas, Medical Student Estimated Blood Loss 10mL Findings See dictation Specimens None per surgeon Drains None Anesthesia General Complication(s) None Disposition Recovery Room / PACU
[2017-01-02] MEDS ORDERED: MoRPHine SULFATE 4 MG/ML 1 ML CARP\\VIAL IV PRN (11:45)
[2017-01-02] MEDS ORDERED: OXYCODONE/ACETAMINOPHEN 5-325 TAB PO PRN (11:45)
--- NOTE | 2017-01-02 11:53 | OPERATIVE REPORT ---
DATE OF OPERATION: 01/02/2017 PREOPERATIVE DIAGNOSIS: Recurrent left inguinal hernia. POSTOPERATIVE DIAGNOSIS: Recurrent indirect left inguinal hernia. PROCEDURE: Repair of recurrent left indirect inguinal hernia. SURGEON: Ricardo Perrin MD. FINDINGS: The patient had a large indirect hernia sac with a sliding component. There was no evidence of obstruction of the sigmoid colon. There was no direct component, although the floor of the canal was quite attenuated due to the large size of the indirect hernia sac. The cord structures appeared normal. There was a lipoma of the cord that was removed. TECHNIQUE: The patient was given a general anesthetic and the area was prepped and draped in the usual sterile fashion. A left inguinal incision was made, carried down through the subcutaneous tissue. There was some scar tissue encountered but it was a small amount. The dissection was carried posteriorly until the external oblique fascia could be identified. The external oblique fascia was then defined. The external ring was identified. A small incision was made in the external oblique. The underlying structures were off its undersurface and it was opened through the external ring. I then the canal contents away from the inguinal ligament laterally and off the internal oblique musculature medially and I was able to then elevate some of it. I opened the cremasteric fibers anteriorly and there were multiple layers of flimsy tissue that had to be divided until I could get down to the hernia sac. The structures were elevated. An additional dissection was carried out near the pubic tubercle and I was then able to establish a plane behind the sac and the cord structures, however, required dividing additional tissue layers to get down to the sac to be able to actually see and feel the cord structures themselves. Once I was able to accomplish that, I then was able to bluntly, sharply and with cautery dissection, establish the hernia sac and separate the cord structures, working from distal to proximal up towards the internal ring. That was when the lipoma of the cord was identified. It was away from the cord structures and away from the hernia sac up to just inside the internal ring where it was clamped, amputated and ligated with a 2-0 Vicryl tie. Once the hernia sac was freed up to just inside the internal ring, I opened the sac. I investigated the inside of the sac at which time it was obvious that the sigmoid colon was part of the wall of the medial portion of the sac. The opening in the hernia sac was closed with a running 2-0 Vicryl. The entire sac was then reduced through the attenuated internal ring. That then allowed me to identify the floor of the canal and further establish, the floor of the canal by dividing additional attachments distally over the pubic tubercle and elevating additional portions of the cord structures anteriorly. Once the floor of the canal was established, I was then able to oversew the floor of the canal reconnecting the transversalis to some of the internal oblique down to the tissue below the inguinal ligament. A piece of preformed inguinal hernia mesh was then placed into the floor of the canal and sewn to the anterior surface of the internal oblique medially tissue over the pubic bone inferiorly and to the shelving border of the inguinal ligament laterally. The legs of the mesh were approximated to each other to create a new internal ring. All the mesh suturing was done with 0 PDS. Cord structures were placed back into their anatomic position and the external oblique was closed over them using a running 2-0 Vicryl. The deep subcutaneous tissue was closed with running 3-0 Vicryl. The superficial subcutaneous tissue was closed with running 3-0 Vicryl and skin was closed with 4-0 Monocryl in a running subcuticular fashion. The skin was anesthetized with 0.5% Marcaine and an ilioinguinal block was performed with that same local. The skin was cleansed, dried and benzoin placed. Steri-Strips applied. The estimated blood loss was 10 mL. Sponge, needle and instrument counts were correct prior to the closure. The patient tolerated the surgical procedure without complication and was transferred to recovery. I attest to the content of the Intraoperative Record and any orders documented therein. Any exception s are noted below.
--- NOTE | 2017-01-02 12:03 | Anesthesiology Progress Note ---
Anesthesia Post Op Note Date & Time Jan 02, 2017 at 12:03 Vital Signs Pain Intensity: 0 Vital Signs Past 12 Hours Date Time Temp Pulse Resp B/P (MAP) Pulse Ox O2 Delivery O2 Flow Rate FiO2 01/02/17 11:52 60 16 01/02/17 11:52 60 16 92 01/02/17 11:51 133/77 01/02/17 11:51 36.5 01/02/17 11:47 60 15 01/02/17 11:47 60 15 93 01/02/17 11:46 125/71 01/02/17 11:43 60 27 93 01/02/17 11:43 60 27 01/02/17 11:41 129/70 01/02/17 11:38 60 19 01/02/17 11:38 60 19 93 01/02/17 11:37 60 17 01/02/17 11:37 60 17 93 01/02/17 11:36 128/69 01/02/17 11:32 60 20 99 01/02/17 11:32 60 20 01/02/17 11:31 135/72 01/02/17 11:27 60 15 99 01/02/17 11:27 60 15 01/02/17 11:26 61 20 130/70 98 01/02/17 11:26 60 20 01/02/17 11:21 63 17 136/71 98 01/02/17 11:21 63 17 01/02/17 11:17 140/74 01/02/17 11:16 36.5 62 12 140/74 100 Oxymask 10 01/02/17 11:16 62 01/02/17 11:16 62 99 01/02/17 07:47 36.5 60 24 134/66 97 Room Air 01/02/17 07:40 36.5 60 24 134/66 Notes Mental Status: alert / awake / arousable, participated in evaluation Pt Amnestic to Procedure: Yes Nausea / Vomiting: adequately controlled Pain: adequately controlled Airway Patency, RR, SpO2: stable & adequate BP & HR: stable & adequate Hydration State: stable & adequate Anesthetic Complications: no major complications apparent
[2017-01-02 12:05] VITALS: BP 136/70; PULSE 60; TEMP 36.4; O2SAT 94
[2017-01-02 12:35] VITALS: BP 113/72; PULSE 60; TEMP 36.4; O2SAT 95
[2017-01-02 13:05] VITALS: BP 124/76; PULSE 60; TEMP 36.2; O2SAT 95
[2017-01-02 14:15] VITALS: BP 138/70; PULSE 60; TEMP 36.4; O2SAT 94
== END 2017-01-02 14:34 | disposition home or self-care (01) ==
LOC: C.ACU 06:58
PROVIDERS: ATTEND Surgery
DX: K40.91 Unilateral inguinal hernia, without obstruction or gangrene, recurrent (principal); I44.7 Left bundle-branch block, unspecified; I25.10 Atherosclerotic heart disease of native coronary artery without angina pectoris; F17.200 Nicotine dependence, unspecified, uncomplicated; I25.2 Old myocardial infarction; Z95.0 Presence of cardiac pacemaker; Z79.82 Long term (current) use of aspirin

== ENCOUNTER 2017-04-20 14:56 | Emergency (ER) | payer OTHER ==
[~2017-04-20] VITALS: Ht 170.2 cm; Wt 69.0 kg
[~2017-04-20 14:56] MED LIST changes: -CEFAZOLIN 2000MG IV PUSH 10 ML IV SCH; -LACTATED RINGER'S 1000ML 1,000 ML IV SCH
[2017-04-20 14:58] VITALS: TEMP 36.3; Ht 170.2 cm; Wt 69.0 kg
[2017-04-20] MEDS ORDERED: APOA1CAP PO (15:06)
[2017-04-20] MEDS ORDERED: AMOX500C3 PO (15:06)
[2017-04-20] MEDS ORDERED: MDR4 PO (15:06)
[2017-04-20] MEDS ORDERED: DONE5TAB9 PO (15:09)
[2017-04-20 15:45] LABS: BASO % 0.6 %; BASO ABS # 0.05 K/uL (0-0.2); EOS % 1.4 %; EOS ABS # 0.11 K/uL (0-0.5); HEMATOCRIT 35.6 % (42-52); HEMOGLOBIN 12.4 g/dL (14.0-18.0); IG# 0.05 K/uL (0.00-0.02); LYMPH % 34.3 %; LYMPH ABS # 2.69 K/uL (1.2-3.4); MEAN CELL VOLUME 87.3 fL (80-100); MEAN CORPUSCULAR HEMOGLOBIN 30.4 pg (25-34); MEAN CORPUSCULAR HGB CONC 34.8 g/dl (32-36); MONO % 12.5 %; MONO ABS # 0.98 K/uL (0.11-0.59); NEUT % 50.6 %; NEUT ABS # 3.96 K/uL (1.4-6.5); PLATELET COUNT 341 K/uL (130-400); WHITE BLOOD COUNT 7.84 K/uL (4.8-10.8)
[2017-04-20 15:58] LABS: PTT PATIENT 28.5 SECONDS (21.0-31.0)
[2017-04-20 16:02] LABS: ALBUMIN 3.4 gm/dl (3.4-5.0); ALT/SGPT 20 U/L (12-78); AST/SGOT 15 U/L (15-37); BLOOD UREA NITROGEN 24 mg/dl (7-18); CALCIUM 8.3 mg/dl (8.5-10.1); CARBON DIOXIDE 25 mmol/L (21-32); CREATININE 1.17 mg/dl (0.60-1.40); GLUCOSE 109 mg/dl (70-99); LIPASE 366 U/L (73-393); POTASSIUM 4.1 mmol/L (3.5-5.1); SODIUM 132 mmol/L (136-145)
[2017-04-20 16:05] LABS: ALKALINE PHOSPHATASE 98 U/L (45-117); TOTAL PROTEIN 7.2 gm/dl (6.4-8.2)
[2017-04-20] MEDS ORDERED: SUPERCREAM 0.870 % 15GM JAR EXT STA (16:13)
--- NOTE | 2017-04-20 16:22 | DIAGNOSTIC IMAGING REPORT ---
CHEST 2 VIEWS ROUTINE CLINICAL HISTORY: Pneumonia COMPARISON STUDY: 08/30/2016 FINDINGS: The heart is normal in size. 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 There is no failure. There is no focal pulmonary consolidation. There are no pleural effusions.[ IMPRESSION: No active disease in the chest. Electronically signed by: Lance Benitez M.D. 04/20/2017 4:21 PM Dictated Date/Time: 04/20/2017 4:20 PM
--- NOTE | 2017-04-20 18:07 | Surgery Consultation ---
Consultation Date of Consultation: Apr 20, 2017. Attending Physician: History of Present Illness The patient is an 82 year old male who presents to the Emergency Room with complaints of worsening bleeding starting last night. The patient states that he usually has a little bit of rectal bleeding every day, though starting last night it just got a lot worse. He notes that the blood is bright red, and there are some clots in it. The patient states that he is having bleeding with and without bowel movements, and he states that it does not hurt to have a bowel movement. The patient notes that he has been having normal stool, though there is bleeding, and his last bowel movement was yesterday. He reports that he feels a little bit weak and has a cough, and he states that he has had the cough for the past week or two. He denies any chest pain, shortness of breath, fever, and hematuria. The patient takes a baby aspirin daily, and he denies any history of emphysema or asthma. I saw pt at ER, I reviewed pt's H/P with pt, pt is still have some rectal bleeding, pt denies abdominal pain, no diarrhea, no dizziness, pt has never had colonoscopy. Past Medical/Surgical History Medical Problems: (1) Bronchitis Status: Acute (2) Dehydration Status: Acute (3) Episode of syncope Status: Acute (4) Intermittent palpitations Status: Acute Social History Smoking Status: Current Every Day Smoker Smokeless Tobacco Use: No Alcohol Use: occasionally Drug Use: none Marital Status: Occupation Status: retired Allergies Coded Allergies: Sulfa Antibiotics (Unverified Allergy, Unknown, UNKNOWN - PT NOT SURE, 04/20) Home Medications Scheduled Amoxicillin (Amoxil), 500 MG PO Q12 Apoaequorin (Prevagen), 10 MG PO DAILY Aspirin (Aspirin Ec), 81 MG PO QAM Donepezil HCl (Aricept), 5 MG PO DAILY Lisinopril (Zestril), 5 MG PO QAM Methylprednisolone (Methylprednisolone), 4 MG PO DIRECTED Simvastatin (Zocor), 20 MG PO QPM Sotalol Hcl (Sotalol Hcl), 0.5 TAB PO BID Review of Systems Constitutional: No fever, No chills, No sweats, No weight loss, No weakness, No fatigue, No problem reported Eyes: No worsening of vision, No eye pain, No redness, No discharge, No diplopia, No problem reported ENT: No hearing loss, No unusual epistaxis, No nasal symptoms, No sore throat, No tinnitus, No dental problems, No trouble swallowing, No problem reported Respiratory: + problem reported (pacemaker, cardiac stent, abdominal aotic stent), No cough, No sputum, No wheezing, No shortness of breath, No dyspnea on exertion, No dyspnea at rest, No hemoptysis Abdomen: No pain, No nausea, No vomiting, No diarrhea, No constipation, No GI bleeding, No problem reported Musculoskeletal: No joint pain, No muscle pain, No swelling, No calf pain, No problem reported Genitourinary - Male: No hematuria, No dysuria, No urinary frequency, No urinary urgency, No urinary hesitancy, No urinary retention, No urinary incontinence, No penile discharge, No lesions, No impotence, No problem reported Neurologic: No memory loss, No paralysis, No weakness, No numbness/tingling, No vertigo, No balance problems, No problem reported Psychiatric: No depression symptoms, No anhedonism, No anxiety, No insomnia, No substance abuse, No problem reported Endocrine: No fatigue, No excessive thirst, No excessive urination, No problem reported Hematologic / Lymphatic: No abnormal bleeding/bruising, No clotting problems, No swollen lymph nodes, No night sweats, No problem reported Physical Exam Date Time Temp Pulse Resp B/P (MAP) Pulse Ox O2 Delivery O2 Flow Rate FiO2 04/20/17 17:52 60 18 157/78 95 Room Air 04/20/17 15:50 61 04/20/17 15:43 60 20 124/66 97 Room Air 04/20/17 14:58 36.3 71 20 120/78 95 General Appearance: WD/WN, no apparent distress Head: normocephalic Eyes: normal inspection ENT: normal ENT inspection Neck: supple, no JVD Respiratory/Chest: chest non-tender, lungs clear Cardiovascular: regular rate, rhythm, no edema, no gallop, no JVD, no murmur Abdomen/GI: normal bowel sounds, non tender, soft, no organomegaly, no pulsatile mass (rectal exam: internal hemorrhoid bleeding, active, ) Extremities/Musculoskelatal: normal inspection, no calf tenderness, normal capillary refill Neurologic/Psych: no motor/sensory deficits, alert, normal mood/affect Skin: normal color, warm/dry, no rash Laboratory Results Last 24 Hours Test 04/20/17 15:33 White Blood Count 7.84 K/uL Red Blood Count 4.08 M/uL Hemoglobin 12.4 g/dL Hematocrit 35.6 % Mean Corpuscular Volume 87.3 fL Mean Corpuscular Hemoglobin 30.4 pg Mean Corpuscular Hemoglobin Concent 34.8 g/dl Platelet Count 341 K/uL Mean Platelet Volume 8.0 fL Neutrophils (%) (Auto) 50.6 % Lymphocytes (%) (Auto) 34.3 % Monocytes (%) (Auto) 12.5 % Eosinophils (%) (Auto) 1.4 % Basophils (%) (Auto) 0.6 % Neutrophils # (Auto) 3.96 K/uL Lymphocytes # (Auto) 2.69 K/uL Monocytes # (Auto) 0.98 K/uL Eosinophils # (Auto) 0.11 K/uL Basophils # (Auto) 0.05 K/uL RDW Standard Deviation 42.0 fL RDW Coefficient of Variation 13.0 % Immature Granulocyte % (Auto) 0.6 % Immature Granulocyte # (Auto) 0.05 K/uL Prothrombin Time 10.3 SECONDS Prothromb Time International Ratio 1.0 Activated Partial Thromboplast Time 28.5 SECONDS Partial Thromboplastin Ratio 1.1 Sodium Level 132 mmol/L Potassium Level 4.1 mmol/L Chloride Level 99 mmol/L Carbon Dioxide Level 25 mmol/L Anion Gap 8.0 mmol/L Blood Urea Nitrogen 24 mg/dl Creatinine 1.17 mg/dl Est Creatinine Clear Calc Drug Dose 44.0 ml/min Estimated GFR () 66.0 Estimated GFR (Non- 56.9 BUN/Creatinine Ratio 20.1 Random Glucose 109 mg/dl Calcium Level 8.3 mg/dl Total Bilirubin 0.2 mg/dl Direct Bilirubin < 0.1 mg/dl Aspartate Amino Transf (AST/SGOT) 15 U/L Alanine Aminotransferase (ALT/SGPT) 20 U/L Alkaline Phosphatase 98 U/L Total Protein 7.2 gm/dl Albumin 3.4 gm/dl Lipase 366 U/L Assessment & Plan pt is a 82 year old male who presents to ER with one day history rectal bleeding , IMP: internal hemorrhoid bleeding, Plan, I recommend to do rubber band ligation of hemorrhoid D/W benefits, risks and alternatives of the procedure, the risks- infection, bleeding, rectal pain, pt understood, he agrees with the procedure, I answered all questions, D/W ER attending, pt can be discharged home after the procedure, with colace 100mg po bid x 10 days, F/U me one week,
--- NOTE | 2017-04-20 18:37 | [facility] Post Operative Brief Note ---
Immediate Operative Summary Operative Date Apr 20, 2017. Pre-Operative Diagnosis rectal bleeding from internal hemorrhoid Post-Operative Diagnosis same Procedure(s) Performed rubber band ligation of hemorrhoid Surgeon Gera Cerna MD Heating Element Builder Surgeon(s) none Estimated Blood Loss 0.5ml Findings Consistent with Post-Op Diagnosis internal hemorrhoid, bleeding Fluids (cc crystalloids) none Specimens none Drains None Anesthesia Type None Complication(s) none Disposition Accompanied Pt To Recover: Disposition:
[2017-04-20 19:14] VITALS: BP 140/87; PULSE 60; O2SAT 95
--- NOTE | 2017-04-20 22:23 | EMERGENCY ROOM VISIT NOTE ---
History Report prepared by Jaqui: Scot Almeida Under the Supervision of: Dr. Allen Arguello M.D. First contact with patient: 15:16 Chief Complaint: GI ASSESSMENT Stated Complaint: HEMORAGING History of Present Illness The patient is an 82 year old male who presents to the Emergency Room with complaints of worsening bleeding starting last night. The patient states that he usually has a little bit of rectal bleeding every day, though starting last night it just got a lot worse. He notes that the blood is bright red, and there are some clots in it. The patient states that he is having bleeding with and without bowel movements, and he states that it does not hurt to have a bowel movement. The patient notes that he has been having normal stool, though there is bleeding, and his last bowel movement was yesterday. He reports that he feels a little bit weak and has a cough, and he states that he has had the cough for the past week or two. He denies any chest pain, shortness of breath, fever, and hematuria. The patient takes a baby aspirin daily, and he denies any history of emphysema or asthma. Source of History: patient Onset: last night Position: other (rectum) Symptom Intensity: moderate Quality: other (bleeding) Timing: worsening Associated Symptoms: + cough, + weakness, No fevers, No chest pain, No SOB Review of Systems See HPI for pertinent positives & negatives. A total of 10 systems reviewed and were otherwise negative. Past Medical & Surgical Medical Problems: (1) Inguinal hernia (2) Syncope Family History Diabetes mellitus Heart disease Social History Smoking Status: Current Every Day Smoker Drug Use: none Marital Status: Occupation Status: retired Current/Historical Medications Scheduled Amoxicillin (Amoxil), 500 MG PO Q12 Apoaequorin (Prevagen), 10 MG PO DAILY Aspirin (Aspirin Ec), 81 MG PO QAM Donepezil HCl (Aricept), 5 MG PO DAILY Lisinopril (Zestril), 5 MG PO QAM Methylprednisolone (Methylprednisolone), 4 MG PO DIRECTED Simvastatin (Zocor), 20 MG PO QPM Sotalol Hcl (Sotalol Hcl), 0.5 TAB PO BID Allergies Coded Allergies: Sulfa Antibiotics (Unverified Allergy, Unknown, UNKNOWN - PT NOT SURE, 04/20) Physical Exam Vital Signs Date Time Temp Pulse Resp B/P (MAP) Pulse Ox O2 Delivery O2 Flow Rate FiO2 04/20/17 19:14 60 18 140/87 95 04/20/17 18:17 60 04/20/17 17:52 60 18 157/78 95 Room Air 04/20/17 15:50 61 04/20/17 15:43 60 20 124/66 97 Room Air 04/20/17 14:58 36.3 71 20 120/78 95 Physical Exam Constitutional: Vital signs reviewed. Eyes: Pupils are equal round reactive to light. Conjunctiva are noninjected. ENT: Pharynx is clear without erythema or exudate. Mucous membranes are moist. Neck supple without meningeal signs. Respiratory: Scattered wheezing bilaterally. Breath sounds are equal bilaterally. Cardiovascular: Regular rate and rhythm. No rubs or gallops. GI: Soft, nondistended and nontender. Bowel sounds are present. Rectal: Several large external hemorrhoids without active bleeding. There is bright red blood and clots around the anus. Stool is light brown. Musculoskeletal: No peripheral edema. No lower extremity tenderness. Integumentary: No cyanosis. Neurological: The patient is awake and alert. No focal deficits. Psychiatric: Normal affect. Medical Decision & Procedures ER Provider Diagnostic Interpretation: Radiology results as stated below per my review and the radiologist's interpretation: CHEST 2 VIEWS ROUTINE CLINICAL HISTORY: Pneumonia COMPARISON STUDY: 08/30/2016 FINDINGS: The heart is normal in size. 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 There is no failure. There is no focal pulmonary consolidation. There are no pleural effusions.[ IMPRESSION: No active disease in the chest. Electronically signed by: Lance Benitez M.D. 04/20/2017 4:21 PM Dictated Date/Time: 04/20/2017 4:20 PM Laboratory Results 04/20/17 15:33 Red Blood Count 4.08, Mean Corpuscular Volume 87.3, Mean Corpuscular Hemoglobin 30.4, Mean Corpuscular Hemoglobin Concent 34.8, Mean Platelet Volume 8.0, Neutrophils (%) (Auto) 50.6, Lymphocytes (%) (Auto) 34.3, Monocytes (%) (Auto) 12.5, Eosinophils (%) (Auto) 1.4, Basophils (%) (Auto) 0.6, Neutrophils # (Auto ) 3.96, Lymphocytes # (Auto) 2.69, Monocytes # (Auto) 0.98, Eosinophils # (Auto ) 0.11, Basophils # (Auto) 0.05 04/20/17 15:33 Test 04/20/17 15:33 White Blood Count 7.84 K/uL (4.8-10.8) Red Blood Count 4.08 M/uL (4.7-6.1) Hemoglobin 12.4 g/dL (14.0-18.0) Hematocrit 35.6 % (42-52) Mean Corpuscular Volume 87.3 fL (80-100) Mean Corpuscular Hemoglobin 30.4 pg (25-34) Mean Corpuscular Hemoglobin Concent 34.8 g/dl (32-36) Platelet Count 341 K/uL (130-400) Mean Platelet Volume 8.0 fL (7.4-10.4) Neutrophils (%) (Auto) 50.6 % Lymphocytes (%) (Auto) 34.3 % Monocytes (%) (Auto) 12.5 % Eosinophils (%) (Auto) 1.4 % Basophils (%) (Auto) 0.6 % Neutrophils # (Auto) 3.96 K/uL (1.4-6.5) Lymphocytes # (Auto) 2.69 K/uL (1.2-3.4) Monocytes # (Auto) 0.98 K/uL (0.11-0.59) Eosinophils # (Auto) 0.11 K/uL (0-0.5) Basophils # (Auto) 0.05 K/uL (0-0.2) RDW Standard Deviation 42.0 fL (36.4-46.3) RDW Coefficient of Variation 13.0 % (11.5-14.5) Immature Granulocyte % (Auto) 0.6 % Immature Granulocyte # (Auto) 0.05 K/uL (0.00-0.02) Prothrombin Time 10.3 SECONDS (9.0-12.0) Prothromb Time International Ratio 1.0 (0.9-1.1) Activated Partial Thromboplast Time 28.5 SECONDS (21.0-31.0) Partial Thromboplastin Ratio 1.1 Anion Gap 8.0 mmol/L (3-11) Est Creatinine Clear Calc Drug Dose 44.0 ml/min Estimated GFR () 66.0 Estimated GFR (Non- 56.9 BUN/Creatinine Ratio 20.1 (10-20) Calcium Level 8.3 mg/dl (8.5-10.1) Total Bilirubin 0.2 mg/dl (0.2-1) Direct Bilirubin < 0.1 mg/dl (0-0.2) Aspartate Amino Transf (AST/SGOT) 15 U/L (15-37) Alanine Aminotransferase (ALT/SGPT) 20 U/L (12-78) Alkaline Phosphatase 98 U/L (45-117) Total Protein 7.2 gm/dl (6.4-8.2) Albumin 3.4 gm/dl (3.4-5.0) Lipase 366 U/L (73-393) Laboratory results as reviewed by me. Medications Administered Medications (Trade) Dose Ordered Sig/Jose Juan Route Start Time Stop Time Status Last Admin Dose Admin Cocaine HCl (Supercream 0.870% Cr) 1 gm ONE STAT EXT 04/20/17 16:13 04/20/17 16:14 DC 04/20/17 16:43 1 GM ECG Per My Interpretation Indication: weakness Rate (beats per minute): 68 Rhythm: sinus rhythm (with frequent atrial paced complexes) Findings: LBBB, other (No ST elevations. Some J point Elevation) ED Course 1516: The patient was evaluated in room C8. A complete history and physical exam was performed. 1613: Supercream 0.870% Cr 1gm EXT 1619: I went to reevaluate the patient, and he was at x-ray. 1643: I reevaluated the patient, and he was still having quite a bit of bleeding. Super cream was applied. 1644: I discussed the patient's case with the surgical PA, and she states that she will let Dr. Cerna - Surgery know, and he will evaluate the patient. 1722: I reevaluated the patient, and Dr. Cerna was in the room, and he is going to do an anoscope. 1744: Dr. Cerna evaluated the patient, and his plan is to rubber band ligate an internal hemorrhoids which he saw on anoscope. He will discharge him home afterwards on no medications. 1840: Dr. Cerna ligated the internal hemorrhoid, and he is ready for discharge. He is going to follow up with Dr. Cerna in a week. Medical Decision This is an 82-year-old male presents with rectal bleeding. Differential diagnosis includes GI bleed, external hemorrhoids, internal hemorrhoids, mass, anemia. I did perform a limited focused review of portions of the patient's old chart on the electronic medical record. The patient was admitted in August for syncope. He had a complete AV block, and he had a pacemaker placed. I did evaluate the patient as noted above. The patient is presenting with rectal bleeding. He has had it for years but it has gotten worse yesterday. The blood is bright red and he has no associated abdominal pain or rectal pain. IV access was established. I did order and personally review the patient's 12-lead EKG and chest x-ray as described above. His chest x-ray does not show any signs of pneumonia. I did order and review the patient's blood work as noted in the electronic medical record. He is slightly anemic but otherwise his lab tests are unremarkable. I initially ordered supra cream for the patient. This was applied locally. I did discuss case with Dr. Cerna of surgery. Dr. Cerna did evaluate him in the emergency department. He did perform anoscopy as well as rubber band ligation of an internal hemorrhoid. Hemostasis was achieved per the patient and Dr. Cerna. The patient will follow up in [address] Cerna. He did not recommend that the patient put anything on his external hemorrhoids at this time. Patient was discharged in good condition. Medication Reconcilliation Current Medication List: was personally reviewed by me Blood Pressure Screening Patient's blood pressure: Normal blood pressure Consults Time Called: 1640 Consulting Physician: The Surgical PA-C Returned Call: [phone] I discussed the patient's case with the surgical PA, and she states that she will let Dr. Cerna - Surgery know, and he will evaluate the patient. Impression Primary Impression: Bleeding internal hemorrhoids Scribe Attestation The scribe's documentation has been prepared under my direct and personally reviewed by me in its entirety. I confirm that the note above accurately reflects all work, treatment, procedures, and medical decision making performed by me. Departure Information Dispostion Home / Self-Care Referrals Tomas Friedman (PCP) Forms HOME CARE DOCUMENTATION FORM, IMPORTANT VISIT INFORMATION Patient Instructions Hemorrhoids Tx Removal, My [facility] Additional Instructions You have been examined and treated today on an emergency basis only. This is not a substitute for, or an effort to provide, complete comprehensive medical care. It is impossible to recognize and treat all injuries or illnesses in a single emergency department visit. It is therefore important that you follow up closely with Dr. Cerna in 1 week. Call as soon as possible for an appointment. Return for worsening symptoms or if you develop abdominal pain, feeling like you are going to pass out, shortness of breath, chest pain or any other concerning symptoms.
--- NOTE | 2017-04-21 00:32 | OPERATIVE REPORT ---
DATE OF OPERATION: 04/20/2017 PREOPERATIVE DIAGNOSIS: Internal hemorrhoid bleeding. POSTOPERATIVE DIAGNOSIS: Same. OPERATION: Rubber band ligation, hemorrhoid. SURGEON: Dr. Gera Cerna. ANESTHESIA: None. ESTIMATED BLOOD LOSS: About a 0.5 m. FINDINGS: An internal hemorrhoid bleeding. COMPLICATIONS: None. INDICATIONS FOR THE OF THE PROCEDURE: This is an 82-year-old gentleman who presented to the ED with 1 day history of rectal bleeding and I did a rectal exam and found the patient had internal hemorrhoid bleeding. I did recommend to do a rubber band ligation hemorrhoid. I did talk to the patient about the benefit and risk, alternate procedure. I indicated the risks may include but not limited such as bleeding, infection, recurrence, may need a more procedure, rectal pain. The patient understands. He signed informed consent and I answered all questions. DETAILS OF PROCEDURE: We did the procedure at the patient's bedside at the ER and laid the patient in lateral decubitus position and I did a rectal exam first, found the patient had internal hemorrhoid, released to the internal hemorrhoid, one is bleeding at 7 o'clock and another one at 10 o'clock hemorrhoid and no bleeding, so we decided to do the rubber band ligation at 7 o'clock hemorrhoid. Put the proctoscope and then chose a probable ligation x2 to ligate internal hemorrhoid at 7 o'clock. Rechecked, no active bleeding and the patient had no rectal pain. The patient tolerated the procedure well and after procedure, I did give patient the postop care instruction. The patient understands. I will follow up the patient in 1 week. Also, I talked to the ER attending, and the patient can discharge home today. I will follow up the patient in 1 week. I attest to the content of the Intraoperative Record and any orders documented therein. Any exceptions are noted below. [email or web address]
== END 2017-04-20 19:16 | disposition home or self-care (01) ==
LOC: C.EDB 14:57 → C.EDC 19:16
DX: K64.8 Other hemorrhoids (principal); F17.200 Nicotine dependence, unspecified, uncomplicated; Z88.2 Allergy status to sulfonamides; Z79.899 Other long term (current) drug therapy; Z79.82 Long term (current) use of aspirin

== ENCOUNTER 2019-03-23 01:44 | Observation (INO) ==
[2019-03-23 02:17] LABS: Hematocrit (blood only) 31.5 % (42-52); Hemoglobin 10.2 g/dL (14.0-18.0); Immature Granulocytes # (auto) 0.01 K/uL (0.00-0.02); Immature Granulocytes % (auto) 0.2 %; Lymphocytes # (auto) 1.03 K/uL (1.2-3.4); Lymphocytes % (auto) 21.2 %; Mean Corpuscular Hemoglobin 27.9 pg (25-34); Mean Corpuscular Hgb Conc 32.4 g/dL (32-36); Mean Corpuscular Volume 86.1 fL (80-100); Mean Platelet Volume 8.3 fL (7.4-10.4); Monocytes # (auto) 0.26 K/uL (0.11-0.59); Monocytes % (auto) 5.3 %; Neutrophils # (auto) 3.56 K/uL (1.4-6.5); Neutrophils % (auto) 73.3 %; Platelet Count 353 K/uL (130-400); RDW Coefficient of Variation 15.2 % (11.5-14.5); RDW Standard Deviation 47.3 fL (36.4-46.3); Red Blood Count 3.66 M/uL (4.7-6.1); White Blood Count 4.86 K/uL (4.8-10.8)
[2019-03-23 02:27] LABS: Partial Thromboplastin Time 26.2 Seconds (21.0-31.0); Prothrombin Time 10.1 Seconds (9.0-12.0)
[2019-03-23 02:33] LABS: Alanine Aminotransferase 14 U/L (12-78); Albumin Level 3.2 gm/dl (3.4-5.0); Aspartate Aminotransferase 13 U/L (15-37); BUN Creatinine Ratio 18.9 (10-20); Blood Urea Nitrogen 23 mg/dl (7-18); Calcium 8.2 mg/dl (8.5-10.1); Carbon Dioxide 24 mmol/L (21-32); Chloride 108 mmol/L (98-107); Est GFR (African American) 61.2; Est GFR (Non-African American) 52.8; Glucose 134 mg/dl (70-99); Potassium 3.8 mmol/L (3.5-5.1); Sodium 138 mmol/L (136-145)
[2019-03-23 02:37] LABS: Albumin Globulin Ratio 0.8 (0.9-2); Alkaline Phosphatase 80 U/L (45-117); Bilirubin,Total 0.2 mg/dl (0.2-1); Globulin 4.2 gm/dl (2.5-4.0); Total Protein 7.4 gm/dl (6.4-8.2); Troponin I 0.018 ng/ml (0-0.045)
[2019-03-23 04:23] LABS: Magnesium 2.1 mg/dl (1.8-2.4); NT Pro B Type Natriuretic Pept 431 pg/ml (0-1800); Thyroid Stimulating Hormone 0.509 uIu/ml (0.300-4.500)
[2019-03-23 04:54] LABS: POC Urine Bilirubin Negative (Negative); POC Urine Blood Negative (Negative); POC Urine Glucose Normal (Normal); POC Urine Ketones Negative (Negative); POC Urine Leukocytes Negative (Negative); POC Urine Nitrite Negative (Negative); POC Urine Protein Trace (Negative); POC Urine Urobilinogen Normal (Normal); POC Urine pH 5 (4.5-7.5)
[2019-03-23 05:16] LABS: Amphetamines+Metham, Urine Neg (Neg); Barbiturates, Urine Neg (Neg); Benzodiazepine, Urine Neg (Neg); Cocaine, Urine Neg (Neg); MDMA (Ecstacy), Urine Neg (Neg); Methadone, Urine Neg (Neg); Opiate, Urine Neg (Neg); Phencyclidine, Urine Neg (Neg)
--- NOTE | 2019-03-23 06:11 | Emergency Department Note ---
Entered by Rashid Coto acting as a scribe for Myrna Goode DO History of Present Illness General Chief complaint: Chest Pain Stated complaint: CHEST PAIN, RAPID HEART BEAT Time Seen by Provider: 03/23/19 03:08 Source: patient History of Present Illness Provider complaint: Tachycardia Onset (ago): hour(s) 4 Location: chest Radiation: non-radiation Pain Consistency: + now resolved Relieved By: + none Associated symptoms: + denies other symptoms (Dizziness, LE swelling) and + shortness of breath The patient is an 84 year old male who presents to the Emergency Room with complaints of an episode of tachycardia that started about 4 hours ago and lasted over an hour before resolving. The patient states that he was getting ready to go to bed when he noticed his heart was racing. The patient reports that he has never had an episode like this before but he does have a history of an TN. The patient states that his symptoms did not feel similar to his past TN. The patient recalls being slightly short of breath but this has since resolved as well. The patient states he "just did not feel good" but denies any overt chest pain, nausea, dizziness, lower extremity swelling, or recent illnesses. The patient has no history of thyroid issues. Patient denies any recent trauma or change in activity. Patient denies any recent illness. Home Medications Home Medications Medication Instructions Recorded Confirmed Type aspirin 81 mg tablet,delayed 81 mg PO DAILY tab 08/28/18 03/23/19 History release lisinopril 5 mg tablet 5 mg PO DAILY #90 tab 12/27/18 03/23/19 Rx sotalol 80 mg tablet 40 mg PO BID #90 tab 12/27/18 03/23/19 Rx doxycycline hyclate 100 mg capsule 100 mg PO BID 10 Days #20 cap 03/18/19 03/23/19 Rx simvastatin 20 mg PO QPM 03/23/19 03/23/19 History Allergies Allergy/AdvReac Type Severity Reaction Status Date / Time Sulfa (Sulfonamide Allergy Unknown UNKNOWN - Unverified 03/18/19 18:44 Antibiotics) PT NOT SURE Past Med/Surg History Medical History Aortic aneurysm (Chronic) Benign essential hypertension (Chronic) Coronary artery disease (Chronic) History of myocardial infarction (Chronic) Hyperlipidemia (Chronic) Osteopenia determined by x-ray Peripheral vascular disease (Chronic) Pulmonary nodule noted 09/03/2018 -Stable solid benign-appearing nodules, which are unchanged since 2016 consistent with benignity. No new pulmonary nodule. Surgical History History of back surgery History of cardiac cath CATH STENT PLACEMENT [facility] History of inguinal hernia repair, bilateral History of permanent cardiac pacemaker placement AUG 2016 Presence of cardiac pacemaker Family History Grandmother (Maternal) Diabetes Grandfather (Maternal) Diabetes Social History Preferred Language: Chilean Communication Ability: Effective Visual Impairment: No Limitations Hearing Ability: Hard of Hearing Cushion Cover Inspector Required: No Beliefs That Will Affect Care: None marital status: Current Living Situation: Spouse current occupational status: retired 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 Other Information That Helps Us Care for You: No Feels Safe at Home: Yes Safety Concerns: Feels Safe At This Time Smoking Status: Current every day smoker Tobacco Type: cigarettes ; Age Started Using Tobacco: 17 ; packs per day: 1 ; Cigarettes Per Day: 15 ; Second Hand Exposure: Yes ; Hx Alcohol Use: No Hx Substance Use: No Childhood Exposure to Second-Hand Smoke: Yes caffeine: Yes during the past year weight has: remained stable Dental Care, Regularly: No Physical Activity Frequency: Does not Exercise Seatbelt Use: always Sunscreen Use: No Review of Systems See HPI for pertinent positives & negatives. and A total of 10 systems reviewed and were otherwise negative Physical Exam Vital Signs Vital Signs - 24 hr 03/23/19 01:48 03/23/19 02:00 03/23/19 02:30 Temperature 97.3 F L Temperature Source Oral Pulse Rate 110 H 107 H 104 H Pulse Rate [Left] Pulse Rate from SpO2 Sensor 107 H 105 H Pulse Rhythm [Left] Pulse Strength [Left] Respiratory Rate 18 18 15 Respiratory Effort / Characteristics Non-Labored Respiratory Depth Normal Blood Pressure 100/65 104/68 116/71 Blood Pressure [Left Arm] Blood Pressure Mean 76 83 79 Blood Pressure Mean [Left Arm] Blood Pressure Position [Left Arm] Pulse Oximetry 95 96 97 Oxygen Delivery Method Room Air Room Air Room Air Sepsis Recent Fever Within 48 Hours No Sepsis Action Taken by Nursing No Action Required 03/23/19 03:00 03/23/19 03:30 03/23/19 04:00 Temperature Temperature Source Pulse Rate 95 H 111 H 89 Pulse Rate [Left] Pulse Rate from SpO2 Sensor 95 H 95 H 88 Pulse Rhythm [Left] Pulse Strength [Left] Respiratory Rate 22 17 18 Respiratory Effort / Characteristics Respiratory Depth Blood Pressure 107/62 102/55 L 101/57 L Blood Pressure [Left Arm] Blood Pressure Mean 81 70 74 Blood Pressure Mean [Left Arm] Blood Pressure Position [Left Arm] Pulse Oximetry 96 95 96 Oxygen Delivery Method Room Air Room Air Room Air Sepsis Recent Fever Within 48 Hours Sepsis Action Taken by Nursing 03/23/19 05:00 03/23/19 05:30 03/23/19 06:00 Temperature Temperature Source Pulse Rate 84 81 83 Pulse Rate [Left] Pulse Rate from SpO2 Sensor Pulse Rhythm [Left] Pulse Strength [Left] Respiratory Rate 18 18 19 Respiratory Effort / Characteristics Respiratory Depth Blood Pressure 107/60 107/64 112/65 Blood Pressure [Left Arm] Blood Pressure Mean 69 67 68 Blood Pressure Mean [Left Arm] Blood Pressure Position [Left Arm] Pulse Oximetry 95 96 Oxygen Delivery Method Room Air Room Air Sepsis Recent Fever Within 48 Hours Sepsis Action Taken by Nursing 03/23/19 07:00 Temperature Temperature Source Pulse Rate Pulse Rate [Left] 83 Pulse Rate from SpO2 Sensor Pulse Rhythm [Left] Regular Pulse Strength [Left] Normal Respiratory Rate 18 Respiratory Effort / Characteristics Non-Labored Spontaneous Respiratory Depth Normal Blood Pressure Blood Pressure [Left Arm] 110/63 Blood Pressure Mean Blood Pressure Mean [Left Arm] 78 Blood Pressure Position [Left Arm] Lying Pulse Oximetry 98 Oxygen Delivery Method Room Air Sepsis Recent Fever Within 48 Hours Sepsis Action Taken by Nursing GENERAL: alert, well appearing, well nourished, no distress, non-toxic EYE EXAM: normal conjunctiva, PERRL and EOM's grossly intact OROPHARYNX: no exudate, no erythema, lips, buccal mucosa, and tongue normal and mucous membranes are moist NECK: supple, no nuchal rigidity, no adenopathy, non-tender LUNGS: Clear to auscultation. Normal chest wall mechanics, no w/r/r HEART: no murmurs, S1 normal and S2 normal, normal sinus rhythm on telemetry ABDOMEN: abdomen soft, non-tender, normo-active bowel sounds, no masses, no rebound or guarding. BACK: Back is symmetrical on inspection and there is no deformity, no midline tenderness, no CVA tenderness. SKIN: no rashes and no bruising UPPER EXTREMITIES: upper extremities are grossly normal. FROM, nml pulses b/l. LOWER EXTREMITIES: No pitting edema. FROM, nml pulses b/l. NEURO EXAM: Normal sensorium, cranial nerves II-XII grossly intact, normal speech, no gross weakness of arms, no gross weakness of legs. Course Course 0338: Past medical records reviewed. The patient was evaluated in room A12B, and a complete history and physical examination were performed. 0511: Patient here well-appearing, no ectopy or dysrhythmia noted on telemetry. Patient has had no recurrent symptoms. 0702: I reevaluated the patient and updated him on test results. He agreed with the treatment plan. 0705: I spoke to Dr. Sellers [facility] about the patient's case. He agreed to accept the patient for further evaluation. Consultations Consultation #1: I spoke to Dr. Sellers [facility] Hospital[facility] about the patient's case. He agreed to accept the patient for further evaluation. Time: 07:05 Administered Medications Aspirin (Ecotrin Ectab) 81 mg PO DAILY MALCOL[place] Stop: 04/22/19 10:59 Last Admin: 03/24/19 08:44 Dose: 81 mg Documented by: [id number] Admin: 03/23/19 11:32 Dose: 81 mg Documented by: [id number] Enoxaparin Sodium (Lovenox) 40 mg SQ Q24H MALCOL[place] Stop: 04/22/19 12:59 Last Admin: 03/23/19 14:30 Dose: 40 mg Documented by: [id number] Lisinopril (Zestril) 5 mg PO DAILY [place] Stop: 04/22/19 10:59 Last Admin: 03/24/19 08:44 Dose: 5 mg Documented by: [id number] Admin: 03/23/19 11:32 Dose: 5 mg Documented by: [id number] Simvastatin (Zocor) 20 mg PO QPM [facility] Stop: 04/22/19 20:59 Last Admin: 03/23/19 20:32 Dose: 20 mg Documented by: [id number] Sotalol HCl (Betapace) 40 mg PO BID [facility]COLM Stop: 04/22/19 10:59 Last Admin: 02/02/20 08:43 Dose: 40 mg Documented by: [id number] Admin: 03/23/19 20:32 Dose: 40 mg Documented by: [id number] Admin: 03/23/19 11:32 Dose: 40 mg Documented by: [id number] Discontinued Medications Pneumococcal Polyvalent Vaccine (Pneumovax-23) 25 mcg IM .ONCE ONE Stop: 03/23/19 11:13 Last Admin: 03/23/19 11:33 Dose: Not Given Documented by: [id number] Medical Decision Making Differential Diagnosis Differential: NSR, SVT, PACs, PVCs, Cardiac Dysrhythmia, Endocrine Dysfunction, Electrolyte/Metabolic Abnormality, Pulmonary Embolism, Infectious, GI, amonst other pathologies entertained. Medical Records Attestation: I reviewed the patient's medical records. Home Medications Current Medication List: was personally reviewed by me Laboratory Data Attestation: I reviewed the patient's lab results. Result diagrams: 03/24/19 05:15 03/24/19 05:15 Lab Results 03/23/19 03/23/19 03/23/19 Range/Units 01:55 01:55 01:55 WBC 4.86 (4.8-10.8) K/uL RBC 3.66 L (4.7-6.1) M/uL Hgb 10.2 L (14.0-18.0) g/dL Hct 31.5 L (42-52) % MCV 86.1 (80-100) fL MCH 27.9 (25-34) pg MCHC 32.4 (32-36) g/dL RDW Std Deviation 47.3 H (36.4-46.3) fL RDW Coeff of Codie 15.2 H (11.5-14.5) % Plt Count 353 (130-400) K/uL MPV 8.3 (7.4-10.4) fL Immature Gran % (Auto) 0.2 % Neut % (Auto) 73.3 % Lymph % (Auto) 21.2 % [place] % (Auto) 5.3 % Eos % (Auto) 0.0 % Baso % (Auto) 0.0 % Immature Gran # (Auto) 0.01 (0.00-0.02) K/uL Neut # (Auto) 3.56 (1.4-6.5) K/uL Lymph # (Auto) 1.03 L (1.2-3.4) K/uL [place] # (Auto) 0.26 (0.11-0.59) K/uL Eos # (Auto) 0.00 (0-0.5) K/uL Baso # (Auto) 0.00 (0-0.2) K/uL PT 10.1 (9.0-12.0) Seconds INR 1.0 (0.9-1.1) APTT 26.2 (21.0-31.0) Seconds PTT Ratio 1.0 Sodium 138 (136-145) mmol/L Potassium 3.8 (3.5-5.1) mmol/L Chloride 108 H (98-107) mmol/L Carbon Dioxide 24 (21-32) mmol/L Anion Gap 6.0 (3-11) BUN 23 H (7-18) mg/dl Creatinine 1.23 (0.6-1.4) mg/dl Est Cr Clr Drug Dosing Not Reportable Est GFR ( Amer) 61.2 Est GFR (Non-Af Amer) 52.8 BUN/Creatinine Ratio 18.9 (10-20) Glucose 134 H (70-99) mg/dl Calcium 8.2 L (8.5-10.1) mg/dl Magnesium 2.1 (1.8-2.4) mg/dl Total Bilirubin 0.2 (0.2-1) mg/dl AST 13 L (15-37) U/L ALT 14 (12-78) U/L Alkaline Phosphatase 80 (45-117) U/L Troponin I 0.018 (0-0.045) ng/ml NT-Pro-B Natriuret Pep 431 (0-1800) pg/ml Total Protein 7.4 (6.4-8.2) gm/dl Albumin 3.2 L (3.4-5.0) gm/dl Globulin 4.2 H (2.5-4.0) gm/dl Albumin/Globulin Ratio 0.8 L (0.9-2) TSH 0.509 (0.300-4.500) uIu/ml POC Urine pH (4.5-7.5) POC Urine Protein (Negative) POC Ur Glucose (UA) (Normal) POC Urine Ketones (Negative) POC Urine Blood (Negative) POC Urine Nitrite (Negative) POC Urine Bilirubin (Negative) POC Urine Urobilinogen (Normal) POC U Leukocyte Esteras (Negative) Urine Opiates Screen (Neg) Ur Methadone, Qual (Neg) Urine Barbiturates (Neg) Ur Phencyclidine (PCP) (Neg) U Amphetamin/Meth Scrn (Neg) MDMA (Ecstasy) Screen (Neg) U Benzodiazepines Scrn (Neg) Ur Cocaine Metabolite (Neg) U Marijuana (THC) Screen (Neg) 03/23/19 03/23/19 03/23/19 Range/Units 04:30 04:30 06:10 WBC (4.8-10.8) K/uL RBC (4.7-6.1) M/uL Hgb (14.0-18.0) g/dL Hct (42-52) % MCV (80-100) fL MCH (25-34) pg MCHC (32-36) g/dL RDW Std Deviation (36.4-46.3) fL RDW Coeff of Codie (11.5-14.5) % Plt Count (130-400) K/uL MPV (7.4-10.4) fL Immature Gran % (Auto) % Neut % (Auto) % Lymph % (Auto) % [place] % (Auto) % Eos % (Auto) % Baso % (Auto) % Immature Gran # (Auto) (0.00-0.02) K/uL Neut # (Auto) (1.4-6.5) K/uL Lymph # (Auto) (1.2-3.4) K/uL [place] # (Auto) (0.11-0.59) K/uL Eos # (Auto) (0-0.5) K/uL Baso # (Auto) (0-0.2) K/uL PT (9.0-12.0) Seconds INR (0.9-1.1) APTT (21.0-31.0) Seconds PTT Ratio Sodium (136-145) mmol/L Potassium (3.5-5.1) mmol/L Chloride (98-107) mmol/L Carbon Dioxide (21-32) mmol/L Anion Gap (3-11) BUN (7-18) mg/dl Creatinine (0.6-1.4) mg/dl Est Cr Clr Drug Dosing Est GFR ( Amer) Est GFR (Non-Af Amer) BUN/Creatinine Ratio (10-20) Glucose (70-99) mg/dl Calcium (8.5-10.1) mg/dl Magnesium (1.8-2.4) mg/dl Total Bilirubin (0.2-1) mg/dl AST (15-37) U/L ALT (12-78) U/L Alkaline Phosphatase (45-117) U/L Troponin I 0.073 H* (0-0.045) ng/ml NT-Pro-B Natriuret Pep (0-1800) pg/ml Total Protein (6.4-8.2) gm/dl Albumin (3.4-5.0) gm/dl Globulin (2.5-4.0) gm/dl Albumin/Globulin Ratio (0.9-2) TSH (0.300-4.500) uIu/ml POC Urine pH 5 (4.5-7.5) POC Urine Protein Trace H (Negative) POC Ur Glucose (UA) Normal (Normal) POC Urine Ketones Negative (Negative) POC Urine Blood Negative (Negative) POC Urine Nitrite Negative (Negative) POC Urine Bilirubin Negative (Negative) POC Urine Urobilinogen Normal (Normal) POC U Leukocyte Esteras Negative (Negative) Urine Opiates Screen Neg (Neg) Ur Methadone, Qual Neg (Neg) Urine Barbiturates Neg (Neg) Ur Phencyclidine (PCP) Neg (Neg) U Amphetamin/Meth Scrn Neg (Neg) MDMA (Ecstasy) Screen Neg (Neg) U Benzodiazepines Scrn Neg (Neg) Ur Cocaine Metabolite Neg (Neg) U Marijuana (THC) Screen Neg (Neg) Imaging Data My Impression: X-ray: I interpreted the following studies. Chest: A one view study of the chest was reviewed and was negative for cardiomegaly, focal infiltrate, effusion, pulmonary edema, or wide mediastinum. Pacemaker noted. ECG Data Attestation: I personally reviewed and interpreted this ECG as follows: Indication: + chest pain, + palpitations and + SOB/dyspnea Rhythm: + sinus rhythm ECG Intervals/blocks: + First degree AV block, + Right Bundle branch block and + Normal QT-c ECG ST segments: no ST depression and no ST elevation ECG Findings: no PACs and no PVCs Blood Pressure Blood Pressure Findings: Normal blood pressure MDM Narrative Patient here well-appearing despite complaints. No ectopy or dysrhythmia noted on telemetry were monitored here. Patient's first labs were reassuring, and patient had no recurrent symptoms. Patient monitored for several hours as a precaution. On repeat check of troponin, patient's troponin found to be elevated. Unclear if this is due to demand related to prior tachycardia or for other evolving cardiac etiology. I do not suspect occult infectious etiology. No reported trauma. Patient does not appear to have acute CHF. Patient made aware of all results. Patient was in agreement with plan for additional i npatient monitoring. Case discussed with the hospitalist. Impression & Plan Palpitations, Atypical chest pain, Elevated troponin Discharge Plan Visit Data *Final* Discharge Date/Time: 03/23/19 09:44 Chief Complaint: Chest Pain Stated Complaint: CHEST PAIN, RAPID HEART BEAT ED Provider: Myrna Goode Discharge Problem: Palpitations, Atypical chest pain, Elevated troponin Patient Disposition: Admitted As Inpatient Discharge Instructions Interventions: ED Discharge Assessment Last Done: 03/23/19 09:44 The scribe's documentation has been prepared under my direction and personally reviewed by me in its entirety. I confirm that the note above accurately reflects all work, treatment, procedures, and medical decision making performed by me.
--- NOTE | 2019-03-23 08:12 | History & Physical Report ---
Date of Service March 23, 2019 Assessment & Plan (1) Palpitations: * Obs PCU * Trend troponin -- initially 0.018, then 0.073. Repeat at 0.112 -- will order additional for 6 hours -- likely secondary to strain * Pacemaker Interrogation * I&Os * Daily weights * Cardiology consult * EKG w/ CP and in AM * ECHO * Iron studies, B12, folate in AM * Lipid Panel, A1c in AM * FOCB (2) Atypical chest pain: * As above- no current cp reported * Continue to monitor (3) Coronary artery disease: * S/p stent to circumflex * Most recent cardiac catheterization was performed in [place] in 2010 -- mild nonobstructive disease in the left main, lad, and circumflex. RCA with 90% stenosis in the midportion and 100% in the distal right coronary artery for which medical management was recommended. Prior circumflex coronary stents patent. The cardiac catheterization was performed in the setting of chest pain and apical ischemia on a nuclear stress test at that time. * Continue ASA 81mg, Simvastatin 20mg * Consider adding on beta-keyonna (4) PAF (paroxysmal atrial fibrillation): * history of -- Nov 2014. Follows with Dr. Lantigua * Palpitations prior to arrival likely rapid atrial fibrillation, awaiting pacer interrogation review * EKG in AM * Continue home sotalol 40mg BID * Continue to monitor (5) Elevated troponin: * As above (6) Benign essential hypertension: * Chronic. Stable. Currently 117/72 * Continue home lisinopril 5mg (7) Hyperlipidemia: * Chronic. Stable. Continue statin as above * Repeat lipid panel in AM (8) Presence of cardiac pacemaker: * Secondary to complete heart block -- > dual chamber pacemaker placed 2016 * Pacemaker interrogation as above (9) History of myocardial infarction: * x 2 - once in , and again 2010 (10) Peripheral vascular disease: * Chronic. Stable. Continue statin, aspirin as above (11) Aortic aneurysm: * History of endovascular abdominal aortic aneurysm repair for which he follows at [facility] in [place]. Patient states he follows up once a year but is unable to name his provider (12) Bleeding internal hemorrhoids: * Hx of. Could be contributing to anemia * FOCB, iron studies pending (13) Pulmonary nodule: * Noted 09/03/2018 -- stable solid benign-appearing nodules, which are unchanged since 2016 consistent with benignity. No new pulmonary nodule. (14) DVT prophylaxis: * Lovenox SQ Dispo: obs to PCU, trend troponins, ECHO, cards consult -- possible d/c in AM History of Present Illness Chief Complaint: Palpitations, Chest Pain Primary Care Provider: RYDER Zamarripa 84 year old white male with PMH for CAD (s/p stent 2010), ICD (for complete heart block 2016), HTN, HLD, hx paroxysmal afib (on sotalol), aortic aneurysm (s/p stent ) presented to the emergency department for complaints of racing heart/palpitations with associated chest pain prior to falling asleep. He states that his heart was racing and in the 90s, whereas he is normally "calm" and unable to feel his heart beat. He states there was no radiation of symptoms, and he attempted to lie down and move around to see if the pain would go away. As it persisted, he drove himself to the emergency department and it was resolved by the time he arrived, approximately lasting a total of four hours. He states it felt similar to previous [place] but this was not as painful. No current complaints of chest pain, shortness of breath, abdominal pain/fullness, edema, cough, PND. Previously had been on Breo, but denies hx COPD. Previously smoked up to 4ppd, but states he is down to less than 1ppd. Denies need for nicotine patch. Initial troponin negative, however repeat troponin positive at 0.073. CXR without acute process. EKG with widened QRS, LBBB. ?flutter. TSH wnl. Anemic with h/h 10.2/31.5. Na 138. K 3.8. Glucose 134. Mag 1.4. BNP 431. UA with trace protein. Allergies Allergy/AdvReac Type Severity Reaction Status Date / Time Sulfa (Sulfonamide Allergy Unknown UNKNOWN - Unverified 03/18/19 18:44 Antibiotics) PT NOT SURE Home Medications Home Medications Medication Instructions Recorded Confirmed Type aspirin 81 mg tablet,delayed 81 mg PO DAILY tab 08/28/18 03/23/19 History release lisinopril 5 mg tablet 5 mg PO DAILY #90 tab 12/27/18 03/23/19 Rx sotalol 80 mg tablet 40 mg PO BID #90 tab 12/27/18 03/23/19 Rx doxycycline hyclate 100 mg capsule 100 mg PO BID 10 Days #20 cap 03/18/19 03/23/19 Rx simvastatin 20 mg PO QPM 03/23/19 03/23/19 History Past Med/Surg History Medical History Aortic aneurysm (Chronic) Benign essential hypertension (Chronic) Coronary artery disease (Chronic) History of myocardial infarction (Chronic) Hyperlipidemia (Chronic) Osteopenia determined by x-ray Peripheral vascular disease (Chronic) Pulmonary nodule noted 09/03/2018 -Stable solid benign-appearing nodules, which are unchanged since 2016 consistent with benignity. No new pulmonary nodule. Surgical History History of back surgery History of cardiac cath CATH STENT PLAC[facility] [place] History of inguinal hernia repair, bilateral History of permanent cardiac pacemaker placement AUG 2016 Presence of cardiac pacemaker Family History Grandmother (Maternal) Diabetes Grandfather (Maternal) Diabetes Social History Preferred Language: [place]at[place] Communication Ability: Effective Visual Impairment: No Limitations Hearing Ability: Hard of Hearing Coil Placer Required: No Beliefs That Will Affect Care: None marital status: Current Living Situation: Spouse current occupational status: 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 Other Information That Helps Us Care for You: No Feels Safe at Home: Yes Safety Concerns: Feels Safe At This Time Smoking Status: Current every day smoker Tobacco Type: cigarettes ; Age Started Using Tobacco: 17 ; packs per day: 1 ; Cigarettes Per Day: 15 ; Second Hand Exposure: Yes ; Hx Alcohol Use: No Hx Substance Use: No Childhood Exposure to Second-Hand Smoke: Yes caffeine: Yes during the past year weight has: remained stable Dental Care, Regularly: No Physical Activity Frequency: Does not Exercise Seatbelt Use: always Sunscreen Use: No Review of Systems Review of Systems: All systems reviewed & are unremarkable except as noted in HPI & below Constitutional: no fever, no chills and no sweats Eyes: no diplopia and no worsening vision Ear, Nose, Mouth, Throat: no sore throat and no dysphagia Respiratory: no cough and no dyspnea Cardiovascular: no chest pain, no palpitations, no syncope and no edema Gastrointestinal: no abdominal pain, no nausea, no vomiting, no constipation and no diarrhea/loose stools Genitourinary: no dysuria and no hematuria Musculoskeletal: no back pain and no swelling Integumentary: no rash and no lesions Neurologic: no numbness and no paresthesia Psychiatric: no depression and no anxiety Endocrine: no fatigue, no polydipsia and no polyphagia Hematologic / Lymphatic: no coagulopathy, no lymphadenopathy and no unexplained weight loss Allergy / Immunological: no cough and no rash Physical Exam Constitutional: WD/WN, vitals as above no acute distress Eyes: PERRL, conjunctivae normal, anicteric sclerae ENMT: external ear and nose normal, oropharynx normal Neck: trachea midline, no thyromegaly Respiratory: normal respiratory effort; no respiratory distress Auscultation: + diminished lung sounds Cardiovascular: RRR, no murmur, no edema Gastrointestinal (Abdomen): normal bowel sounds, soft, nontender, no hepatosplenomegaly Musculoskeletal: no cyanosis or clubbing, extremities motor strength 5/5 Skin: no rashes, warm and dry Neurologic: patellar DTR's 2+ bilat, sensation intact and PERRL, EOMI, accommodation nl, no face palsy, no dysarthria Psychiatric: A+Ox3, euthymic affect Lymphatic: no cervical or axillary lymphadenopathy Results & Data Vital Signs (Past 12 Hours) Vital Signs Temp Pulse Pulse Resp BP BP Pulse Ox 03/23/19 07:00 83 18 110/63 98 03/23/19 06:00 83 19 112/65 96 03/23/19 05:30 81 18 107/64 03/23/19 05:00 84 18 107/60 95 03/23/19 04:00 89 18 101/57 L 96 03/23/19 03:30 111 H 17 102/55 L 95 03/23/19 03:00 95 H 22 107/62 96 03/23/19 02:30 104 H 15 116/71 97 03/23/19 02:00 107 H 18 104/68 96 03/23/19 01:48 36.3 C L 110 H 18 100/65 95 Laboratory Results 03/23/19 03/23/19 03/23/19 Range/Units 13:12 11:19 06:10 WBC (4.8-10.8) K/uL RBC (4.7-6.1) M/uL Hgb (14.0-18.0) g/dL Hct (42-52) % MCV (80-100) fL MCH (25-34) pg MCHC (32-36) g/dL RDW Std Deviation (36.4-46.3) fL RDW Coeff of Codie (11.5-14.5) % Plt Count (130-400) K/uL MPV (7.4-10.4) fL Immature Gran % (Auto) % Neut % (Auto) % Lymph % (Auto) % [place] % (Auto) % Eos % (Auto) % Baso % (Auto) % Immature Gran # (Auto) (0.00-0.02) K/uL Neut # (Auto) (1.4-6.5) K/uL Lymph # (Auto) (1.2-3.4) K/uL [place] # (Auto) (0.11-0.59) K/uL Eos # (Auto) (0-0.5) K/uL Baso # (Auto) (0-0.2) K/uL PT (9.0-12.0) Seconds INR (0.9-1.1) APTT (21.0-31.0) Seconds PTT Ratio Sodium (136-145) mmol/L Potassium (3.5-5.1) mmol/L Chloride (98-107) mmol/L Carbon Dioxide (21-32) mmol/L Anion Gap (3-11) BUN (7-18) mg/dl Creatinine (0.6-1.4) mg/dl Est Cr Clr Drug Dosing Est GFR ( Amer) Est GFR (Non-Af Amer) BUN/Creatinine Ratio (10-20) Glucose (70-99) mg/dl POC Glucose 92 (70-99) mg/dl Calcium (8.5-10.1) mg/dl Magnesium (1.8-2.4) mg/dl Total Bilirubin (0.2-1) mg/dl AST (15-37) U/L ALT (12-78) U/L Alkaline Phosphatase (45-117) U/L Troponin I 0.112 H* 0.073 H* (0-0.045) ng/ml NT-Pro-B Natriuret Pep (0-1800) pg/ml Total Protein (6.4-8.2) gm/dl Albumin (3.4-5.0) gm/dl Globulin (2.5-4.0) gm/dl Albumin/Globulin Ratio (0.9-2) TSH (0.300-4.500) uIu/ml POC Urine pH (4.5-7.5) POC Urine Protein (Negative) POC Ur Glucose (UA) (Normal) POC Urine Ketones (Negative) POC Urine Blood (Negative) POC Urine Nitrite (Negative) POC Urine Bilirubin (Negative) POC Urine Urobilinogen (Normal) POC U Leukocyte Esteras (Negative) Urine Opiates Screen (Neg) Ur Methadone, Qual (Neg) Urine Barbiturates (Neg) Ur Phencyclidine (PCP) (Neg) U Amphetamin/Meth Scrn (Neg) MDMA (Ecstasy) Screen (Neg) U Benzodiazepines Scrn (Neg) Ur Cocaine Metabolite (Neg) U Marijuana (THC) Screen (Neg) 03/23/19 03/23/19 03/23/19 Range/Units 04:30 04:30 01:55 WBC (4.8-10.8) K/uL RBC (4.7-6.1) M/uL Hgb (14.0-18.0) g/dL Hct (42-52) % MCV (80-100) fL MCH (25-34) pg MCHC (32-36) g/dL RDW Std Deviation (36.4-46.3) fL RDW Coeff of Codie (11.5-14.5) % Plt Count (130-400) K/uL MPV (7.4-10.4) fL Immature Gran % (Auto) % Neut % (Auto) % Lymph % (Auto) % [place] % (Auto) % Eos % (Auto) % Baso % (Auto) % Immature Gran # (Auto) (0.00-0.02) K/uL Neut # (Auto) (1.4-6.5) K/uL Lymph # (Auto) (1.2-3.4) K/uL [place] # (Auto) (0.11-0.59) K/uL Eos # (Auto) (0-0.5) K/uL Baso # (Auto) (0-0.2) K/uL PT (9.0-12.0) Seconds INR (0.9-1.1) APTT (21.0-31.0) Seconds PTT Ratio Sodium 138 (136-145) mmol/L Potassium 3.8 (3.5-5.1) mmol/L Chloride 108 H (98-107) mmol/L Carbon Dioxide 24 (21-32) mmol/L Anion Gap 6.0 (3-11) BUN 23 H (7-18) mg/dl Creatinine 1.23 (0.6-1.4) mg/dl Est Cr Clr Drug Dosing Not Reportable Est GFR ( Amer) 61.2 Est GFR (Non-Af Amer) 52.8 BUN/Creatinine Ratio 18.9 (10-20) Glucose 134 H (70-99) mg/dl POC Glucose (70-99) mg/dl Calcium 8.2 L (8.5-10.1) mg/dl Magnesium 2.1 (1.8-2.4) mg/dl Total Bilirubin 0.2 (0.2-1) mg/dl AST 13 L (15-37) U/L ALT 14 (12-78) U/L Alkaline Phosphatase 80 (45-117) U/L Troponin I 0.018 (0-0.045) ng/ml NT-Pro-B Natriuret Pep 431 (0-1800) pg/ml Total Protein 7.4 (6.4-8.2) gm/dl Albumin 3.2 L (3.4-5.0) gm/dl Globulin 4.2 H (2.5-4.0) gm/dl Albumin/Globulin Ratio 0.8 L (0.9-2) TSH 0.509 (0.300-4.500) uIu/ml POC Urine pH 5 (4.5-7.5) POC Urine Protein Trace H (Negative) POC Ur Glucose (UA) Normal (Normal) POC Urine Ketones Negative (Negative) POC Urine Blood Negative (Negative) POC Urine Nitrite Negative (Negative) POC Urine Bilirubin Negative (Negative) POC Urine Urobilinogen Normal (Normal) POC U Leukocyte Esteras Negative (Negative) Urine Opiates Screen Neg (Neg) Ur Methadone, Qual Neg (Neg) Urine Barbiturates Neg (Neg) Ur Phencyclidine (PCP) Neg (Neg) U Amphetamin/Meth Scrn Neg (Neg) MDMA (Ecstasy) Screen Neg (Neg) U Benzodiazepines Scrn Neg (Neg) Ur Cocaine Metabolite Neg (Neg) U Marijuana (THC) Screen Neg (Neg) 03/23/19 03/23/19 Range/Units 01:55 01:55 WBC 4.86 (4.8-10.8) K/uL RBC 3.66 L (4.7-6.1) M/uL Hgb 10.2 L (14.0-18.0) g/dL Hct 31.5 L (42-52) % MCV 86.1 (80-100) fL MCH 27.9 (25-34) pg MCHC 32.4 (32-36) g/dL RDW Std Deviation 47.3 H (36.4-46.3) fL RDW Coeff of Codie 15.2 H (11.5-14.5) % Plt Count 353 (130-400) K/uL MPV 8.3 (7.4-10.4) fL Immature Gran % (Auto) 0.2 % Neut % (Auto) 73.3 % Lymph % (Auto) 21.2 % [place] % (Auto) 5.3 % Eos % (Auto) 0.0 % Baso % (Auto) 0.0 % Immature Gran # (Auto) 0.01 (0.00-0.02) K/uL Neut # (Auto) 3.56 (1.4-6.5) K/uL Lymph # (Auto) 1.03 L (1.2-3.4) K/uL [place] # (Auto) 0.26 (0.11-0.59) K/uL Eos # (Auto) 0.00 (0-0.5) K/uL Baso # (Auto) 0.00 (0-0.2) K/uL PT 10.1 (9.0-12.0) Seconds INR 1.0 (0.9-1.1) APTT 26.2 (21.0-31.0) Seconds PTT Ratio 1.0 Sodium (136-145) mmol/L Potassium (3.5-5.1) mmol/L Chloride (98-107) mmol/L Carbon Dioxide (21-32) mmol/L Anion Gap (3-11) BUN (7-18) mg/dl Creatinine (0.6-1.4) mg/dl Est Cr Clr Drug Dosing Est GFR ( Amer) Est GFR (Non-Af Amer) BUN/Creatinine Ratio (10-20) Glucose (70-99) mg/dl POC Glucose (70-99) mg/dl Calcium (8.5-10.1) mg/dl Magnesium (1.8-2.4) mg/dl Total Bilirubin (0.2-1) mg/dl AST (15-37) U/L ALT (12-78) U/L Alkaline Phosphatase (45-117) U/L Troponin I (0-0.045) ng/ml NT-Pro-B Natriuret Pep (0-1800) pg/ml Total Protein (6.4-8.2) gm/dl Albumin (3.4-5.0) gm/dl Globulin (2.5-4.0) gm/dl Albumin/Globulin Ratio (0.9-2) TSH (0.300-4.500) uIu/ml POC Urine pH (4.5-7.5) POC Urine Protein (Negative) POC Ur Glucose (UA) (Normal) POC Urine Ketones (Negative) POC Urine Blood (Negative) POC Urine Nitrite (Negative) POC Urine Bilirubin (Negative) POC Urine Urobilinogen (Normal) POC U Leukocyte Esteras (Negative) Urine Opiates Screen (Neg) Ur Methadone, Qual (Neg) Urine Barbiturates (Neg) Ur Phencyclidine (PCP) (Neg) U Amphetamin/Meth Scrn (Neg) MDMA (Ecstasy) Screen (Neg) U Benzodiazepines Scrn (Neg) Ur Cocaine Metabolite (Neg) U Marijuana (THC) Screen (Neg) Code Status & VTE Plan Code Status 1 Supervising Physician Co-Signing Physician Notes PA Supervision Note: I personally saw and examined the patient. I verified all coleman points and agree with ROSEANNA Collier with the following exceptions and/or additions: Patient presented with racing heartbeat and chest pain which she reports resolved on his way to driving to the ER which took an hour. He was worried that he might be having another heart attack. He has a pacer in place and are awaiting pacer interrogation I discussed the case with cardiology Seems likely he had atrial fibrillation given his history He is not on anticoagulation. He denies bleeding problems except for some p revious hemorrhoid bleeding which is now resolved. He is however anemic and anemia work-up is pending History and ROS reviewed as above Vitals reviewed Gen: AAOx3, NAD, thin HEENT: Anicteric sclerae, EOMI, oropharynx clear CV: RRR no mgr nl S1S2 Pulm: Diminished throughout, no wcr Abd: +BS soft NT ND no masses or hernias Ext: No edema, 2+ DP pulses Skin: No rashes, warm/dry Neuro: Full strength throughout 84-year-old male here with palpitations and chest pain, myocardial demand ischemia most likely with elevated troponin Awaiting formal cardiology consultation -Check an echocardiogram -Trending serial troponins -Monitor on telemetry for further arrhythmia Awaiting pacer interrogation Consider anticoagulation and work-up PG Care Time/CCT Total # of Minutes Spent Total Time Spent with Patient: Total time spent is greater than 50% in coordination of care (as documented) at patient's floor/unit and/or counseling patient: Coding Level of Care Code 34600 OBS Care - Level 3 Diagnoses Palpitations R00.2 Atypical chest pain R07.89 Coronary artery disease I25.10 PAF (paroxysmal atrial fibrillation) I48.0 Elevated troponin R79.89 Benign essential hypertension I10 Hyperlipidemia E78.5 Presence of cardiac pacemaker Z95.0 History of myocardial infarction I25.2 Peripheral vascular disease I73.9 Aortic aneurysm I71.9 Bleeding internal hemorrhoids K64.8 Pulmonary nodule R91.1 DVT prophylaxis Z29.9
--- NOTE | 2019-03-23 08:16 | XRay Report ---
XR chest 1V portable HISTORY: Atypical Chest Pain COMPARISON: Chest and left RIBS 02/16/2019. FINDINGS: The lungs are clear. Cardiac silhouette is normal in size. No pleural effusions. No pneumot horax. Left-sided dual-chamber pacemaker. IMPRESSION: No acute process. ACT 112: Negative or not required by law. Electronically signed by: Tristen Perez M.D. 03/23/2019 8:14 AM
[2019-03-23] MEDS ORDERED: NITROGLYCERIN SL 0.4 MG/TAB TAB SL PRN (10:19)
[2019-03-23] MEDS ORDERED: POLYETHYLENE (MIRALAX) 17 GM PACK PO PRN (10:19)
[2019-03-23] MEDS ORDERED: MAGNESIUM HYDROXIDE SUSP 30 ML UDC PO PRN (10:19)
[2019-03-23] MEDS ORDERED: ACETAMINOPHEN 325 MG TAB PO PRN (10:19)
[2019-03-23] MEDS ORDERED: ALUMINUM/MAGNESIUM SUSP 30 ML UDC PO PRN (10:19)
[2019-03-23] MEDS ORDERED: PNEUMOCOCCAL POLYSACCHARIDES 25 MCG/0.5 ML VIAL/SYR IM ONE (11:12)
[2019-03-23] MEDS ORDERED: PNEUMOCOCCAL ADMINISTRATION CHARGE ONE (11:12)
[2019-03-23] MEDS: lisinopriL 5 MG TAB PO SCH (11:32)
[2019-03-23] MEDS: ASPIRIN 81 MG ECTAB PO SCH (11:32)
[2019-03-23] MEDS: SOTALOL HCL 80 MG TAB PO SCH ×2 (11:32→20:32)
--- NOTE | 2019-03-23 11:37 | Cardiology Consultation ---
Date of Consultation March 23, 2019 Assessment & Plan (1) Palpitations: (2) Atypical chest pain: (3) PAF (paroxysmal atrial fibrillation): (4) Presence of cardiac pacemaker: (5) Coronary artery disease: The patient is currently in a sinus mechanism, comfortable and eating his lunch. He does have a history of paroxysmal atrial arrhythmias and has taken sotalol as an outpatient. He is currently in a sinus mechanism. Review of our records indicate no anticoagulation, there is mention of bleeding hemorrhoids which may be the reason. For now I would recommend DVT prophylaxis only. Continue him on telemetry. The elevation in troponin is most likely a type II elevation due to strain. History of Present Illness Attending Physician: Angelica Sellers MD History of Present Illness This is an 84-year-old male patient with the cardiac history as outlined below. Until recently most of his health care was performed at [facility]. His coronary artery disease has been stable. He has a history of paroxysmal atrial fibrillation for which he has been on chronic sotalol. He was in his usual state of health. He was going to bed last night and then noticed that his heart was racing. And made him feel uncomfortable. He got out of bed and drove himself to the emergency department. He states by the time he arrived at the emergency department his tachycardia had abated. Currently he has no complaints. He has borderline elevation in his cardiac troponins most likely due to strain. His EKG shows no acute changes. Past Medical History: 1.History of coronary heart disease, records from [place] were received. His most recent cardiac catheterization was performed in [place] in 2010. The report describes mild nonobstructive disease in the left main, lad, and circumflex coronary arteries. The right coronary artery had a 90% stenosis in the midportion and a stenosis of 100% in the distal right coronary artery for which medical management was recommended. The previously placed circumflex coronary stents were patent. The cardiac catheterization was performed in the setting of chest pain and apical ischemia on a nuclear stress test at that time. 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 2016 Allergies Allergy/AdvReac Type Severity Reaction Status Date / Time Sulfa (Sulfonamide Allergy Unknown UNKNOWN - Unverified 03/18/19 18:44 Antibiotics) PT NOT SURE Home Medications Home Medications Medication Instructions Recorded Confirmed Type aspirin 81 mg tablet,delayed 81 mg PO DAILY tab 08/28/18 03/23/19 History release lisinopril 5 mg tablet 5 mg PO DAILY #90 tab 12/27/18 03/23/19 Rx sotalol 80 mg tablet 40 mg PO BID #90 tab 12/27/18 03/23/19 Rx doxycycline hyclate 100 mg capsule 100 mg PO BID 10 Days #20 cap 03/18/19 03/23/19 Rx simvastatin 20 mg PO QPM 03/23/19 03/23/19 History Patient History Medical History Aortic aneurysm (Chronic) Benign essential hypertension (Chronic) Coronary artery disease (Chronic) History of myocardial infarction (Chronic) Hyperlipidemia (Chronic) Osteopenia determined by x-ray Peripheral vascular disease (Chronic) Pulmonary nodule noted 09/03/2018 -Stable solid benign-appearing nodules, which are unchanged since 2016 consistent with benignity. No new pulmonary nodule. Surgical History History of back surgery History of cardiac cath CATH STENT PLACEMENT [facility] History of inguinal hernia repair, bilateral History of permanent cardiac pacemaker placement AUG 2016 Presence of cardiac pacemaker Family History Grandmother (Maternal) Diabetes Grandfather (Maternal) Diabetes Social History Preferred Language: Dominican Communication Ability: Effective Visual Impairment: No Limitations Hearing Ability: Hard of Hearing Form Layer Required: No Beliefs That Will Affect Care: None marital status: Current Living Situation: Spouse current occupational status: retired current occupation: [employer] Other Information That Helps Us Care for You: No Feels Safe at Home: Yes Safety Concerns: Feels Safe At This Time Smoking Status: Current every day smoker Tobacco Type: cigarettes ; Age Started Using Tobacco: 17 ; packs per day: 1 ; Cigarettes Per Day: 15 ; Second Hand Exposure: Yes ; Hx Alcohol Use: No Hx Substance Use: No Childhood Exposure to Second-Hand Smoke: Yes caffeine: Yes during the past year weight has: remained stable Dental Care, Regularly: No Physical Activity Frequency: Does not Exercise Seatbelt Use: always Sunscreen Use: No Review of Systems Review of Systems: All systems reviewed & are unremarkable except as noted in HPI & below Nothing additional to add. Physical Exam Physical Exam: General: no acute distress and stated age Head: normocephalic, no masses, lesions, tenderness or abnormalities Eyes: conjunctiva are pink and non-injected, sclera clear Neck: supple, no adenopathy, no bruits, normal jugular venous pulse, no hep atojugular reflux Chest: normal shape and normal respiratory effort Lungs: clear to auscultation and percussion Cardiac Exam: - regular rate & rhythm, no murmurs gallops or rubs - normal S1, normal S2 Pulses: 2(+) throughout Abdomen: abdomen soft, non-tender, no abnormal masses and no hepatosplenomegaly Musculoskeletal: no gait disturbance, no joint inflammation, no deforming arthritis Extremities: no edema and no cyanosis Neuro: grossly normal exam Results & Data Vital Signs (Past 12 Hours) Vital Signs Temp Pulse Pulse Resp BP BP Pulse Ox 03/23/19 11:18 36.4 C L 61 18 117/72 96 03/23/19 09:00 66 18 124/64 98 03/23/19 07:00 83 18 110/63 98 03/23/19 06:00 83 19 112/65 96 03/23/19 05:30 81 18 107/64 03/23/19 05:00 84 18 107/60 95 03/23/19 04:00 89 18 101/57 L 96 03/23/19 03:30 111 H 17 102/55 L 95 03/23/19 03:00 95 H 22 107/62 96 03/23/19 02:30 104 H 15 116/71 97 03/23/19 02:00 107 H 18 104/68 96 03/23/19 01:48 36.3 C L 110 H 18 100/65 95 Laboratory Results Laboratory Results - last 24 hr 03/23/19 03/23/19 03/23/19 01:55 01:55 01:55 WBC 4.86 RBC 3.66 L Hgb 10.2 L Hct 31.5 L MCV 86.1 MCH 27.9 MCHC 32.4 RDW Std Deviation 47.3 H RDW Coeff of Codie 15.2 H Plt Count 353 MPV 8.3 Immature Gran % (Auto) 0.2 Neut % (Auto) 73.3 Lymph % (Auto) 21.2 Harrison % (Auto) 5.3 Eos % (Auto) 0.0 Baso % (Auto) 0.0 Immature Gran # (Auto) 0.01 Neut # (Auto) 3.56 Lymph # (Auto) 1.03 L Harrison # (Auto) 0.26 Eos # (Auto) 0.00 Baso # (Auto) 0.00 PT 10.1 INR 1.0 APTT 26.2 PTT Ratio 1.0 Sodium 138 Potassium 3.8 Chloride 108 H Carbon Dioxide 24 Anion Gap 6.0 BUN 23 H Creatinine 1.23 Est Cr Clr Drug Dosing Not Reportable Est GFR ( Amer) 61.2 Est GFR (Non-Af Amer) 52.8 BUN/Creatinine Ratio 18.9 Glucose 134 H POC Glucose Calcium 8.2 L Magnesium 2.1 Total Bilirubin 0.2 AST 13 L ALT 14 Alkaline Phosphatase 80 Troponin I 0.018 NT-Pro-B Natriuret Pep 431 Total Protein 7.4 Albumin 3.2 L Globulin 4.2 H Albumin/Globulin Ratio 0.8 L TSH 0.509 POC Urine pH POC Urine Protein POC Ur Glucose (UA) POC Urine Ketones POC Urine Blood POC Urine Nitrite POC Urine Bilirubin POC Urine Urobilinogen POC U Leukocyte Esteras Urine Opiates Screen Ur Methadone, Qual Urine Barbiturates Ur Phencyclidine (PCP) U Amphetamin/Meth Scrn MDMA (Ecstasy) Screen U Benzodiazepines Scrn Ur Cocaine Metabolite U Marijuana (THC) Screen 03/23/19 03/23/19 03/23/19 04:30 04:30 06:10 WBC RBC Hgb Hct MCV MCH MCHC RDW Std Deviation RDW Coeff of Codie Plt Count MPV Immature Gran % (Auto) Neut % (Auto) Lymph % (Auto) Harrison % (Auto) Eos % (Auto) Baso % (Auto) Immature Gran # (Auto) Neut # (Auto) Lymph # (Auto) Harrison # (Auto) Eos # (Auto) Baso # (Auto) PT INR APTT PTT Ratio Sodium Potassium Chloride Carbon Dioxide Anion Gap BUN Creatinine Est Cr Clr Drug Dosing Est GFR ( Amer) Est GFR (Non-Af Amer) BUN/Creatinine Ratio Glucose POC Glucose Calcium Magnesium Total Bilirubin AST ALT Alkaline Phosphatase Troponin I 0.073 H* NT-Pro-B Natriuret Pep Total Protein Albumin Globulin Albumin/Globulin Ratio TSH POC Urine pH 5 POC Urine Protein Trace H POC Ur Glucose (UA) Normal POC Urine Ketones Negative POC Urine Blood Negative POC Urine Nitrite Negative POC Urine Bilirubin Negative POC Urine Urobilinogen Normal POC U Leukocyte Esteras Negative Urine Opiates Screen Neg Ur Methadone, Qual Neg Urine Barbiturates Neg Ur Phencyclidine (PCP) Neg U Amphetamin/Meth Scrn Neg MDMA (Ecstasy) Screen Neg U Benzodiazepines Scrn Neg Ur Cocaine Metabolite Neg U Marijuana (THC) Screen Neg 03/23/19 11:19 WBC RBC Hgb Hct MCV MCH MCHC RDW Std Deviation RDW Coeff of Codie Plt Count MPV Immature Gran % (Auto) Neut % (Auto) Lymph % (Auto) Harrison % (Auto) Eos % (Auto) Baso % (Auto) Immature Gran # (Auto) Neut # (Auto) Lymph # (Auto) Harrison # (Auto) Eos # (Auto) Baso # (Auto) PT INR APTT PTT Ratio Sodium Potassium Chloride Carbon Dioxide Anion Gap BUN Creatinine Est Cr Clr Drug Dosing Est GFR ( Amer) Est GFR (Non-Af Amer) BUN/Creatinine Ratio Glucose POC Glucose 92 Calcium Magnesium Total Bilirubin AST ALT Alkaline Phosphatase Troponin I NT-Pro-B Natriuret Pep Total Protein Albumin Globulin Albumin/Globulin Ratio TSH POC Urine pH POC Urine Protein POC Ur Glucose (UA) POC Urine Ketones POC Urine Blood POC Urine Nitrite POC Urine Bilirubin POC Urine Urobilinogen POC U Leukocyte Esteras Urine Opiates Screen Ur Methadone, Qual Urine Barbiturates Ur Phencyclidine (PCP) U Amphetamin/Meth Scrn MDMA (Ecstasy) Screen U Benzodiazepines Scrn Ur Cocaine Metabolite U Marijuana (THC) Screen Medications Administered Current Inpatient Medications Acetaminophen (Tylenol) 650 mg PO Q4H PRN PRN Reason: Pain or Fever Stop: 04/22/19 10:18 Al Hydrox/Mg Hydrox/Simethicone (Maalox) 15 ml PO Q4H PRN PRN Reason: Dyspepsia Stop: 04/22/19 10:18 Aspirin (Ecotrin Ectab) 81 mg PO DAILY [facility] Stop: 04/22/19 10:59 Last Admin: 03/23/19 11:32 Dose: 81 mg Documented by: Lisinopril (Zestril) 5 mg PO DAILY [facility] Stop: 04/22/19 10:59 Last Admin: 03/23/19 11:32 Dose: 5 mg Documented by: Magnesium Hydroxide (Milk Of Magnesia) 30 ml PO Q12H PRN PRN Reason: Constipation Stop: 04/22/19 10:18 Nitroglycerin (Nitrostat) 0.4 mg SL UD PRN PRN Reason: Chest Pain Stop: 04/22/19 10:18 Polyethylene Glycol (Miralax Powder Packet) 17 gm PO DAILY PRN PRN Reason: Constipation Stop: 04/22/19 10:18 Simvastatin (Zocor) 20 mg PO QPM [facility] Stop: 04/22/19 20:59 Sotalol HCl (Betapace) 40 mg PO BID [facility] Stop: 04/22/19 10:59 Last Admin: 03/23/19 11:32 Dose: 40 mg Documented by:
[2019-03-23] MEDS: ENOXAPARIN INJ 40 MG/0.4 ML SYR SQ SCH (14:30)
--- NOTE | 2019-03-23 16:44 | XCELERA ---
[id number] [id number]
[2019-03-23] MEDS ORDERED: SIMVASTATIN 20 MG TAB PO SCH (21:00)
--- NOTE | 2019-03-23 23:09 | Electrocardiogram Report ---
Test Reason : Blood Pressure : / mmHG Vent. Rate : 108 BPM Atrial Rate : 107 BPM P-R Int : 000 ms QRS Dur : 124 ms QT Int : 358 ms P-R-T Axes : 000 086 025 degrees QTc Int : 479 ms Possible Sinus tachycardia vs atrial flutter with 2:1 AV block Right bundle branch block Possible Inferior infarct , age undetermined Abnormal ECG When compared with ECG of 20-APR-2017 15:42, Atrial pacing is no longer present Vent. rate has increased BY 40 BPM Confirmed by Hernan Burger ([id number]) on 03/23/2019 11:09:28 PM Referred By: REFERRED SELF Confirmed By:Hernan Burger
[2019-03-24 06:01] LABS: Hemoglobin 8.8 g/dL (14.0-18.0); Mean Corpuscular Hemoglobin 27.8 pg (25-34); Mean Corpuscular Hgb Conc 32.6 g/dL (32-36); Mean Corpuscular Volume 85.2 fL (80-100); Mean Platelet Volume 7.9 fL (7.4-10.4); Platelet Count 309 K/uL (130-400); RDW Coefficient of Variation 15.4 % (11.5-14.5); RDW Standard Deviation 48.1 fL (36.4-46.3); Red Blood Count 3.17 M/uL (4.7-6.1); White Blood Count 5.11 K/uL (4.8-10.8)
[2019-03-24 07:01] LABS: BUN Creatinine Ratio 22.2 (10-20); Calcium 8.1 mg/dl (8.5-10.1); Creatinine Clr Calc Pharmacy 44.3 ml/min; Est GFR (African American) 70.1; Est GFR (Non-African American) 60.5; Ferritin 15.7 ng/ml (8-388); Potassium 4.4 mmol/L (3.5-5.1)
[2019-03-24] MEDS: SOTALOL HCL 80 MG TAB PO SCH (08:43)
[2019-03-24] MEDS: ASPIRIN 81 MG ECTAB PO SCH (08:44)
[2019-03-24] MEDS: lisinopriL 5 MG TAB PO SCH (08:44)
[2019-03-24] MEDS ORDERED: FLUTICASONE/VILANTEROL 100/25MCG 14 PUFFS/INHALER INH SCH (10:45)
[2019-03-24 10:56] LABS: Hematocrit (blood only) 30.6 % (42-52); Hemoglobin 9.7 g/dL (14.0-18.0); Mean Corpuscular Hemoglobin 27.6 pg (25-34); Mean Corpuscular Hgb Conc 31.7 g/dL (32-36); Mean Corpuscular Volume 87.2 fL (80-100); Mean Platelet Volume 7.8 fL (7.4-10.4); Platelet Count 284 K/uL (130-400); RDW Coefficient of Variation 15.5 % (11.5-14.5); RDW Standard Deviation 48.8 fL (36.4-46.3); Red Blood Count 3.51 M/uL (4.7-6.1); White Blood Count 4.68 K/uL (4.8-10.8)
[2019-03-24 11:56] LABS: Folate (Folic Acid) 6.22 ng/ml (>5.38)
[2019-03-24] MEDS ORDERED: FERROUS SULFATE 325 MG TAB PO SCH (12:00)
[2019-03-24] MEDS: ENOXAPARIN INJ 40 MG/0.4 ML SYR SQ SCH (13:39)
--- NOTE | 2019-03-24 13:55 | Cardiology Progress Note ---
Date of Service March 24, 2019 Assessment & Plan (1) Palpitations: (2) Atypical chest pain: (3) PAF (paroxysmal atrial fibrillation): (4) Presence of cardiac pacemaker: (5) Coronary artery disease: The patient can be discharged today. He has a chronic anemia possibly from his GI tract which will have to be worked up as an outpatient. For that reason I am comfortable if he remains on aspirin only until that is resolved. He will continue his other medications including the sotalol for which he takes 40 mg twice daily. I did instruct the patient however, if he should have an episode of his arrhythmia he can take another 40 mg of sotalol at that time and see if he converts back to sinus rhythm before he comes to the hospital. I will arrange follow-up through our clinic as an outpatient after discharge. Subjective The patient has been maintaining sinus rhythm with a pacing on the telemetry. Interrogation of his pacemaker indicates that he was in atrial fibrillation for approximately 8 minutes and then spontaneously went back either into sinus rhythm or paced rhythm. He has had no additional arrhythmia since being admitted to the hospital. Review of Systems Review of Systems: All systems reviewed & are unremarkable except as noted in HPI & below Nothing additional to add. Physical Exam Physical Exam: General: no acute distress and stated age Head: normocephalic, no masses, lesions, tenderness or abnormalities Eyes: conjunctiva are pink and non-injected, sclera clear Neck: supple, no adenopathy, no bruits, normal jugular venous pulse, no hepatojugular reflux Chest: normal shape and normal respiratory effort Lungs: clear to auscultation and percussion Cardiac Exam: - regular rate & rhythm, no murmurs gallops or rubs - normal S1, normal S2 Pulses: 2(+) throughout Abdomen: abdomen soft, non-tender, no abnormal masses and no hepatosplenomegaly Musculoskeletal: no gait disturbance, no joint inflammation, no deforming arthritis Extremities: no edema and no cyanosis Neuro: grossly normal exam Results & Data Vital Signs (Past 12 Hours) Vital Signs Temp Pulse Resp BP Pulse Ox 03/24/19 11:07 61 20 103/61 95 03/24/19 06:38 36.6 C 60 19 113/68 95 03/24/19 04:35 36.6 C 60 19 106/64 95 Laboratory Results Laboratory Results - last 24 hr 03/23/19 03/23/1903/24/20 13:12 19:18 05:15 WBC 5.11 RBC 3.17 L Hgb 8.8 L Hct 27.0 L MCV 85.2 MCH 27.8 MCHC 32.6 RDW Std Deviation 48.1 H RDW Coeff of Codie 15.4 H Plt Count 309 MPV 7.9 Sodium Potassium Chloride Carbon Dioxide Anion Gap BUN Creatinine Est Cr Clr Drug Dosing Est GFR ( Amer) Est GFR (Non-Af Amer) BUN/Creatinine Ratio Glucose POC Glucose Estimat Average Glucose Hemoglobin A1c Calcium Iron TIBC Transferrin Transferrin % Sat Ferritin Troponin I 0.112 H* 0.087 H* Triglycerides Cholesterol LDL Cholesterol, Calc VLDL Cholesterol, Calc HDL Cholesterol Cholesterol/HDL Ratio Vitamin B12 Folate 03/24/19 03/24/19 03/24/19 05:15 05:15 05:15 WBC RBC Hgb Hct MCV MCH MCHC RDW Std Deviation RDW Coeff of Codie Plt Count MPV Sodium 138 Potassium 4.4 D Chloride 108 H Carbon Dioxide 26 Anion Gap 5.0 BUN 24 H Creatinine 1.10 Est Cr Clr Drug Dosing 44.3 Est GFR ( Amer) 70.1 Est GFR (Non-Af Amer) 60.5 BUN/Creatinine Ratio 22.2 H Glucose 86 POC Glucose Estimat Average Glucose Pending Hemoglobin A1c Pending Calcium 8.1 L Iron 31 L TIBC 284 Transferrin 206 Transferrin % Sat 11 L Ferritin 15.7 Troponin I Triglycerides 84 Cholesterol 126 LDL Cholesterol, Calc 76 VLDL Cholesterol, Calc 17 HDL Cholesterol 33 Cholesterol/HDL Ratio 4 Vitamin B12 257 Folate 6.22 03/24/19 03/24/19 07:12 10:45 WBC 4.68 L RBC 3.51 L Hgb 9.7 L Hct 30.6 L MCV 87.2 MCH 27.6 MCHC 31.7 L RDW Std Deviation 48.8 H RDW Coeff of Codie 15.5 H Plt Count 284 MPV 7.8 Sodium Potassium Chloride Carbon Dioxide Anion Gap BUN Creatinine Est Cr Clr Drug Dosing Est GFR ( Amer) Est GFR (Non-Af Amer) BUN/Creatinine Ratio Glucose POC Glucose 94 Estimat Average Glucose Hemoglobin A1c Calcium Iron TIBC Transferrin Transferrin % Sat Ferritin Troponin I Triglycerides Cholesterol LDL Cholesterol, Calc VLDL Cholesterol, Calc HDL Cholesterol Cholesterol/HDL Ratio Vitamin B12 Folate Medications Administered Current Inpatient Medications Acetaminophen (Tylenol) 650 mg PO Q4H PRN PRN Reason: Pain or Fever Stop: 04/22/19 10:18 Al Hydrox/Mg Hydrox/Simethicone (Maalox) 15 ml PO Q4H PRN PRN Reason: Dyspepsia Stop: 04/22/19 10:18 Aspirin (Ecotrin Ectab) 81 mg PO DAILY [facility] Stop: 04/22/19 10:59 Last Admin: 03/24/19 08:44 Dose: 81 mg Documented by: Enoxaparin Sodium (Lovenox) 40 mg SQ Q24H [facility] Stop: 04/22/19 12:59 Last Admin: 03/24/19 13:39 Dose: 40 mg Documented by: Ferrous Sulfate (Feosol) 325 mg PO TIDM [facility] Stop: 04/23/19 11:59 Last Admin: 03/24/19 11:09 Dose: 325 mg Documented by: Fluticasone/Vilanterol (Breo Ellipta 100/25 Mcg Inh) 1 puffs INH DAILY [facility] Stop: 04/23/19 10:44 Last Admin: 03/24/19 12:01 Dose: 1 puffs Documented by: Lisinopril (Zestril) 5 mg PO DAILY [facility] Stop: 04/22/19 10:59 Last Admin: 03/24/19 08:44 Dose: 5 mg Documented by: Magnesium Hydroxide (Milk Of Magnesia) 30 ml PO Q12H PRN PRN Reason: Constipation Stop: 04/22/19 10:18 Nitroglycerin (Nitrostat) 0.4 mg SL UD PRN PRN Reason: Chest Pain Stop: 04/22/19 10:18 Polyethylene Glycol (Miralax Powder Packet) 17 gm PO DAILY PRN PRN Reason: Constipation Stop: 04/22/19 10:18 Simvastatin (Zocor) 20 mg PO QPM [facility] Stop: 04/22/19 20:59 Last Admin: 03/23/19 20:32 Dose: 20 mg Documented by: Sotalol HCl (Betapace) 40 mg PO BID [facility] Stop: 04/22/19 10:59 Last Admin: 03/24/19 08:43 Dose: 40 mg Documented by:
--- NOTE | 2019-03-24 15:33 | Discharge Summary ---
Date of Service March 24, 2019 Admission HPI Per Admitting Provider 84 year old white male with PMH for CAD (s/p stent 2010), ICD (for complete heart block 2016), HTN, HLD, hx paroxysmal afib (on sotalol), aortic aneurysm (s/p stent ) presented to the emergency department for complaints of racing heart/palpitations with associated chest pain prior to falling asleep. He states that his heart was racing and in the 90s, whereas he is normally "calm" and unable to feel his heart beat. He states there was no radiation of symptoms, and he attempted to lie down and move around to see if the pain would go away. As it persisted, he drove himself to the emergency department and it was resolved by the time he arrived, approximately lasting a total of four hours. He states it felt similar to previous RI but this was not as painful. No current complaints of chest pain, shortness of breath, abdominal pain/fullness, edema, cough, PND. Previously had been on Breo, but denies hx COPD. Previously smoked up to 4ppd, but states he is down to less than 1ppd. Denies need for nicotine patch. Initial troponin negative, however repeat troponin positive at 0.073. CXR without acute process. EKG with widened QRS, LBBB. ?flutter. TSH wnl. Anemic with h/h 10.2/31.5. Na 138. K 3.8. Glucose 134. Mag 1.4. BNP 431. UA with trace protein. Admission Exam Per Admitting Provider Constitutional: WD/WN, vitals as above no acute distress Eyes: PERRL, conjunctivae normal, anicteric sclerae ENMT: external ear and nose normal, oropharynx normal Neck: trachea midline, no thyromegaly Respiratory: normal respiratory effort; no respiratory distress Auscultation: + diminished lung sounds Cardiovascular: RRR, no murmur, no edema Gastrointestinal (Abdomen): normal bowel sounds, soft, nontender, no h epatosplenomegaly Musculoskeletal: no cyanosis or clubbing, extremities motor strength 5/5 Skin: no rashes, warm and dry Neurologic: patellar DTR's 2+ bilat, sensation intact and PERRL, EOMI, ac commodation nl, no face palsy, no dysarthria Psychiatric: A+Ox3, euthymic affect Lymphatic: no cervical or axillary lymphadenopathy Principal Diagnosis Palpitations, Chest Pain Discharge Exam Constitutional WD/WN, vitals as above no acute distress Eyes PERRL, conjunctivae normal, anicteric sclerae ENMT external ear and nose normal, oropharynx normal Neck trachea midline, no thyromegaly Respiratory normal respiratory effort; no respiratory distress Auscultation: + diminished lung sounds minimal end expiratory wheezing left anterior lung vázquez Cardiovascular RRR, no murmur, no edema Gastrointestinal (Abdomen) normal bowel sounds, soft, nontender, no hepatosplenomegaly Musculoskeletal no cyanosis or clubbing, extremities motor strength 5/5 Skin no rashes, warm and dry Neurologic patellar DTR's 2+ bilat, sensation intact and PERRL, EOMI, accommodation nl, no face palsy, no dysarthria Psychiatric A+Ox3, euthymic affect Lymphatic no cervical or axillary lymphadenopathy Discharge Data Allergies Allergy/AdvReac Type Severity Reaction Status Date / Time Sulfa (Sulfonamide Allergy Unknown UNKNOWN - Unverified 03/18/19 18:44 Antibiotics) PT NOT SURE Consultations 03/23/19 07:08 ED Decision to Admit Stat 03/23/19 10:19 Consult Cardiology Routine 03/24/19 10:41 Consult [facility] patient coordinator front desk Routine Ordered Studies 03/23/19 CXR ECHO Hospital Course (1) Palpitations: * Patient admitted with episode of racing heart and chest pain that resolved prior to arrival to the emergency room. Troponin initially negative and then positive at 0.073. Trended up to 0.112 but then trended down. Anemic with h/h 10.2/31.5, no history of colonoscopy or reported weight loss/bleeding or bloody stool. * Pacemaker interrogation -- patient with approx 80 minutes of afib since September and an 8 minute run of it the day of admission. * Cardiology consult -- Ok to continue ASA only at this time per cardiology, until anemia worked up. Patient with h/h 10.2/31.5 on admission and 9.7/30.6 prior to discharge. Patient initiated on iron therapy. Follow up with GI as outpatient for colonoscopy. * ECHO with normal LV systolic function. EF 55-60%. No regional wma. Mild to moderate concentric LVH. Mild aortic stenosis. Mild systolic anterior motion of the mitral leaflet. Mitral regurgitant jet (eccentric) is not well visualized but appears mild to moderate. Borderline elevated RV systolic pressure * Lipid panel without abnormality. A1c pending at discharge * Plan is to have him take an extra sotalol 40mg prn recurrence of Afib at home and call Cardiology office * should start anticoagulation once anemia workup completed (2) Atypical chest pain: * As above- no current cp reported. (3) Coronary artery disease: * S/p stent to circumflex * Most recent cardiac catheterization was performed in [place] in 2010 -- mild nonobstructive disease in the left main, lad, and circumflex. RCA with 90% stenosis in the midportion and 100% in the distal right coronary artery for which medical management was recommended. Prior circumflex coronary stents patent. The cardiac catheterization was performed in the setting of chest pain and apical ischemia on a nuclear stress test at that time. * Continued ASA 81mg, Simvastatin 20mg (4) PAF (paroxysmal atrial fibrillation): * history of -- Nov 2014. Follows with Dr. Lantigua * Palpitations prior to arrival likely rapid atrial fibrillation, pacer interrogation with approx 8 minutes of afib. Continued sotalol 40mg BID with instructions per cardiology to take extra dose of sotalol if recurs to see if he flips back into NSR. (5) Elevated troponin: * As above (6) Benign essential hypertension: * Chronic. Stable. Currently 117/72 * Continued home lisinopril 5mg (7) Hyperlipidemia: * Chronic. Stable. Continued statin as above. Lipid panel without abnormality. (8) Presence of cardiac pacemaker: * Secondary to complete heart block -- > dual chamber pacemaker placed 2016 * Pacemaker interrogation as above (9) History of myocardial infarction: * x 2 - once in , and again 2010 (10) Peripheral vascular disease: * Chronic. Stable. Continue statin, aspirin as above (11) Aortic aneurysm: * History of endovascular abdominal aortic aneurysm repair for which he follows at [facility] in [place]. Follows up once a year but unable to name provider (12) Bleeding internal hemorrhoids: * Hx of. Could be contributing to anemia. Iron studies with low iron. Nurse navigator to set up appointment for patient as outpatient with GI for colonoscopy to further evaluate. (13) Pulmonary nodule: * Noted 09/03/2018 -- stable solid benign-appearing nodules, which are unchanged since 2016 consistent with benignity. No new pulmonary nodule. (14) DVT prophylaxis: * Lovenox SQ while inpatient Of note, patient with significant smoking history. Encouraged smoking cessation. Given Breo Ellipta as patient previously on in the past and stated that it did help his breathing. No shortness of breath reported. Discharged home. Total Time Total Time Spent Total Time Spent (In Minutes): 50 Discharge Plan Discharge Items Patient Disposition: Home - Self-Care Reason For Visit: CHEST PAIN, PALPITATIONS Discharge Diagnosis: Palpitations, Chest Pain Condition on Discharge: Good Goals: You have been hospitalized for an acute medical problem. During your stay at [facility], we have made an effort to correct the problem that brought you to the hospital while keeping you as comfortable as possible. Medications were used to bring your condition under control and your discharge instructions will include directions for any medications you should take after leaving the hospital. Please make sure you see your Primary Care Provider as part of your follow up plan. Activity: Resume your previous activity Non-emergency contact: Primary Care Provider Call non-emergency contact if: you have any medication questions, your symptoms worsen and your pain is not controlled Follow-up/Referrals: Nliesh Nguyen CRNP [Primary Care Provider] - Diet: Heart Healthy Add Attending Provider Instructions: You have been hospitalized for palpitations and chest pain. You should continue your home lisinopril 5mg, simvastatin 20mg, and aspirin 81mg daily. You should also continue your sotalol 40mg by mouth TWICE daily. If you experience reoccurrence of symptoms of racing heartbeat you may take an additional dose of your sotalol 40mg. Your iron was found to be very low. For this reason, you were started on iron supplementation. This medication should be taken twice daily. Note, this medication may result in darkened stools. It may also contribute to constipation. If this occurs, you may want to utilize Colace or Miralax over the counter to assist. You may want to repeat your lab work (complete blood count) as an outpatient in the next 3-5 days and follow up with your primary care doctor. You should also be called tomorrow with an appointment for gastroenterology (GI) to evaluate this anemia to make sure that you are not bleeding. You should avoid NSAIDs/ibuprofen/motrin/aleve during this period of time, as this may lead to worsened bleeding. If you have pain, it is recommended that you utilize Tylenol, to not exceed 3,000mg in a 24 hour period of time. Smoking cessation is strongly encouraged. In the meantime, you have been provided a prescription for Breo. You have previously been on this medication. You should take 1 puff daily. It is important to note, you should rinse your mouth out after use, to avoid thrush. You should follow up with your primary care provider in the next 3 -- 5 days. Please return to the emergency department if you experience any worsening chest pain, shortness of breath, bloody urine/stool, or for any symptoms that are concerning for you. It has been a pleasure being a part of the medical team providing for you during this hospitalization. Take care! Pending Studies at Discharge: Yes Studies:: Hemoglobin A1c Stand-Alone Forms: [facility], Smoking Cessation Medications and DC Order Prescriptions: New ferrous sulfate 325 mg (65 mg iron) Tablet,Delayed Release (Dr/Ec) 325 mg PO TIDM 30 Days Qty: 30 RF: 0 Breo Ellipta 100-25 mcg/dose Blister With Device 1 ea inhalation DAILY Qty: 28 RF: 0 ferrous sulfate 325 mg (65 mg iron) tablet 325 mg PO TID Qty: 90 RF: 0 Continued lisinopril 5 mg tablet 5 mg PO DAILY Qty: 90 RF: 3 sotalol 80 mg tablet 40 mg PO BID Qty: 90 RF: 2 aspirin 81 mg tablet,delayed release (DR/EC) 81 mg PO DAILY RF: 0 simvastatin 20 mg tablet 20 mg PO QPM RF: 0 Discontinued doxycycline hyclate 100 mg capsule 100 mg PO BID 10 Days Qty: 20 RF: 0 Discharge Orders: Discharge Order (Routine); Ordered 03/24/19 Ordered By: Angelica Sellers Admission Data Admit Date/Time: 03/23/19 08:31 Attending Provider: Angelica Sellers Admit Provider: Angelica Sellers Primary Care Provider: Nilesh Nguyen Other Providers: Angelica Sellers ; Nicho Coppola Other Interventions: Discharge Summary Assessment (RN) Last Done: 03/24/19 13:52 DC Date/Time DO NOT enter until pt leaves facility: 03/24/19 14:57 Supervising Physician Co-Signing Physician Notes PA Supervision Note: I personally saw and examined the patient. I verified all coleman points and agree with ROSEANNA Collier with the following exceptions and/or additions: Patient presented with racing heartbeat and chest pain which she reports resolved on his way to driving to the ER which took an hour. He was worried that he might be having another heart attack. He has a pacer in place and pacer interrogation shows 8 min of rapid afib on day of admission but overall fairly low burden of Afib in the last 6 months I discussed the case with cardiology Very stable since admission, no ACS. Anemia workup needed as above-recommend EGD/Colonoscopy prior to initiating anticoagulation Follow up closely with Cardio as outpt after discharge -Encouraged smoking cessation Vitals reviewed Gen: AAOx3, NAD, thin HEENT: Anicteric sclerae, EOMI, oropharynx clear CV: RRR no mgr nl S1S2 Pulm: Diminished throughout, no wcr Abd: +BS soft NT ND no masses or hernias Ext: No edema, 2+ DP pulses Skin: No rashes, warm/dry Neuro: Full strength throughout Stable for dc to home Coding Level of Care Code 24105 OBS Care - Discharge Diagnoses Palpitations R00.2 Atypical chest pain R07.89 Coronary artery disease I25.10 PAF (paroxysmal atrial fibrillation) I48.0 Elevated troponin R79.89 Benign essential hypertension I10 Hyperlipidemia E78.5 Presence of cardiac pacemaker Z95.0 History of myocardial infarction I25.2 Peripheral vascular disease I73.9 Aortic aneurysm I71.9 Bleeding internal hemorrhoids K64.8 Pulmonary nodule R91.1 DVT prophylaxis Z29.9
--- NOTE | 2019-03-24 22:13 | Electrocardiogram Report ---
Test Reason : Blood Pressure : / mmHG Vent. Rate : 067 BPM Atrial Rate : 060 BPM P-R Int : 286 ms QRS Dur : 076 ms QT Int : 458 ms P-R-T Axes : 000 -10 067 degrees QTc Int : 483 ms Atrial-paced rhythm with prolonged AV conduction Low voltage QRS Prolonged QT Abnormal ECG When compared with ECG of 23-MAR-2019 01:54, Atrial pacing is now present Vent. rate has decreased BY 41 BPM Right bundle branch block is no longer Present Confirmed by Hernan Burger ([id number]) on 03/24/2019 10:13:20 PM Referred By: REFERRED SELF Confirmed By:Hernan Burger
[2019-03-25 06:33] LABS: Estimated Average Glucose 117 mg/dl; Hemoglobin A1C 5.7 % (4.5-5.6)
== END 2019-03-24 14:57 | disposition home or self-care (01) ==
LOC: ED 01:44 → 2S 01:44

== ENCOUNTER 2021-09-13 13:54 | Inpatient (IN) ==
--- NOTE | 2021-09-13 14:50 | XRay Report ---
XR chest 1V portable CLINICAL HISTORY: syncope. Evaluate cardiopulmonary status COMPARISON STUDY: 04/10/2020 TECHNIQUE: 1 view of the chest FINDINGS: Single frontal view of the chest demonstrates the heart size to be enlarged with permanent cardiac pa cer in place. Compared to the previous examination, there has been interval development of a large ri ght pleural effusion with compressive atelectasis/collapse following the right middle and right lower lobes. The left hemithorax remains clear. There is no evidence for left pleural effusion. There is n o evidence for vascular congestion. There is no acute osseous pathology. IMPRESSION: 1. Interval development of large right pleural effusion with right middle lobe and right lower lobe a telectasis/collapse. ACT 112: Negative or not required by law. Electronically signed by: Reese Kellogg M.D. 09/13/2021 2:49 PM
[2021-09-13 15:04] LABS: Hematocrit (blood only) 32.1 % (40.1-51.0); Hemoglobin 10.3 g/dl (14.0-18.0); Mean Corpuscular Hemoglobin 33.4 pg (25.0-34.0); Mean Corpuscular Hgb Conc 32.1 g/dL (32.0-36.0); Mean Corpuscular Volume 104.2 fL (80.0-100.0); Mean Platelet Volume 9.3 fL (9.4-12.4); Nucleated RBC # (auto) 0.09 K/uL (0-0); Nucleated RBC % (auto) 8.8 %; Platelet Count 200 K/uL (130-400); RDW Coefficient of Variation 18.9 % (11.5-14.5); RDW Standard Deviation 72.4 fL (36.4-46.3); Red Blood Count 3.08 M/uL (4.63-6.08); White Blood Count 1.02 K/ul (4.8-10.8)
[2021-09-13 15:31] LABS: Troponin I High Sensitivity 7.8 pg/ml (0-20)
[2021-09-13 15:32] LABS: Albumin Globulin Ratio 1.2 (0.9-2); Albumin Level 3.5 gm/dl (3.4-5.0); Bilirubin,Total 0.7 mg/dl (0.2-1.0); Calcium 8.7 mg/dl (8.5-10.1); Creatinine Clr Calc Pharmacy 33.4 ml/min; Est GFR (African American) 55.4 ml/min; Est GFR (Non-African American) 47.8 ml/min; Potassium 4.4 mmol/L (3.5-5.1); Total Protein 6.5 gm/dl (6.0-8.3)
[2021-09-13 15:57] LABS: ALC (manual) 0.64 K/uL (1.2-3.4); ANC (manual) 0.33 K/uL (1.4-6.5); Lymphocytes # (manual) 0.64 K/uL (1.2-3.4); Lymphocytes % (manual) 63 %; Monocytes # (manual) 0.05 K/uL (0.24-0.82); Monocytes % (manual) 5 %; Neutrophils # (manual) 0.33 K/uL (1.4-6.5); Neutrophils % (manual) 32 %; RBC Morphology Unremarkable
[2021-09-13] MEDS ORDERED: OPTIRAY 320 125ml IV ONE (16:06)
--- NOTE | 2021-09-13 16:31 | CT Scan Report ---
CT OF THE HEAD WITHOUT CONTRAST CLINICAL HISTORY: Syncope. COMPARISON STUDY: Head CT April 10, 2020. TECHNIQUE: Helical axial images of the head were obtained without IV contrast. Automated exposure con trol was utilized for the study. A dose lowering technique was utilized adhering to the principles o f ALARA. FINDINGS: No acute intracranial hemorrhage, midline shift or mass effect is present. Atrophy is noted . The ventricular system is unremarkable. The basal cisterns are patent. No extra-axial collections a re present. There are no findings to suggest acute dural sinus thrombosis or acute territorial infarc t. No significant calvarial abnormalities are present. Small amount of fluid within the bilateral mas toid air cells is similar to prior exam. IMPRESSION: No acute intracranial findings. No change in appearance of the brain. ACT 112: Negative or not required by law. Electronically signed by: Dieudonne Becerra M.D. 09/13/2021 4:29 PM
--- NOTE | 2021-09-13 16:34 | CT Scan Report ---
CT angio chest dissec wo/w con CLINICAL HISTORY: syncope abd pain sob . Evaluate for aortic dissection. COMPARISON STUDY: Portable chest from 09/13/2021 CT DOSE: 1270.86 mGy.cm TECHNIQUE: CT Angio of the chest was performed.followed by image post processing with coronal, and s agittal MIP reformats. Contrast Volume: Optiray 320, 120 ml FINDINGS: Vasculature: The thoracic aorta is normal in course and caliber. There is no evidence for aneurysm, d issection or leakage. There is homogeneous perfusion of the pulmonary vasculature bilaterally. No int raluminal filling defects or evidence for pulmonary embolus is seen. Airway: The airway is clear. No endobronchial lesion is identified. Lungs and pleural: As seen radiographically, there is a large right pleural effusion with compressive atelectasis/collapse involving the entire right lower lobe and the medial segment of the right middl e lobe. There is only mild aerated lung anteriorly on the right. The left hemithorax is clear. There is no evidence for left pleural effusion. Mediastinum: There is no evidence for pathologic adenopathy. The heart size is within normal limits. There is no evidence for pericardial effusion. Upper abdomen:The adrenal glands are normal bilaterally. Osseous structures: There is no acute osseous pathology. Impression: 1. Negative CTA of the thoracic aorta and pulmonary arteries. 2. As seen radiographically, there is a large right pleural effusion with compressive atelectasis/col lapse involving the entire right lower lobe and in the segment of the right middle lobe. 3. Left hemithorax is clear. ACT 112: Negative or not required by law. Electronically signed by: Reese Kellogg M.D. 09/13/2021 4:32 PM
--- NOTE | 2021-09-13 16:52 | CT Scan Report ---
CT ANGIOGRAPHY OF THE ABDOMEN AND PELVIS CLINICAL HISTORY: Syncope. Abdominal pain. COMPARISON STUDY: CT of the abdomen and pelvis August 26, 2016. TECHNIQUE: Helical axial images of the abdomen and pelvis were obtained during arterial phase followi ng intravenous injection of 120 cc of Optiray 320 IV. Sagittal and coronal reconstructions were viewe d as well as maximal intensity projections on an independent 3-D workstation. Automated exposure cont rol was utilized for the study. A dose lowering technique was utilized adhering to the principles of ALARA. FINDINGS: Please note that the chest CT will be reported separately. A large right pleural effusion w ith compressive atelectasis of the right lower lobe is better depicted on that exam. No pneumatosis, free air or portal venous gas is present. Arterial phase images of the liver, spleen, adrenal glands, kidneys and pancreas are unremarkable. There is no biliary or pancreatic ductal dilatation. There is no evidence for a bowel obstruction. Thickening of the distal descending colon and proximal to mid sigmoid colon is noted. This may be due to underdistention. No ascites is present. There is no lymphadenopathy. No acute fracture or suspici ous lesion is identified within the visualized skeletal structures. Bifurcated aortoiliac stent graft is in place. Aneurysm sac measures 2.9 x 2.1 cm. This is similar to CT of August 26, 2016. There is no evidence for rupture. This exam is compromised by motion artifact. T here is moderate stenosis at the origin the celiac axis. Extensive atherosclerotic plaque is noted wi thin the major vessels. Bilateral renal arteries are patent. There is mild narrowing of the proximal right renal artery. Superior mesenteric artery is patent proximally. There is moderate stenosis of th e distal superior mesenteric artery. Note is made of moderate stenosis at the origin of the left inte rnal iliac artery. The left external iliac artery is diminutive as is the left common femoral artery. There is moderate stenosis of the left common femoral artery with ulcerated plaque. Moderate stenosi s of the right superficial femoral artery is noted. There is mild stenosis of the right common femora l artery. No endoleak is identified on this arterial phase exam although sensitivity is diminished gi ha motion artifact. Lipoma within the transverse colon is incidentally noted. IMPRESSION: 1. Large right pleural effusion with compressive atelectasis of the right lower lobe. This is better depicted on the chest CT which will be reported separately. 2. Bifurcated aortoiliac stent graft in place. No change in aneurysm sac size since CT of August 26 7. No evidence for rupture. Extensive atherosclerotic plaque within the major vessels of the abdomen and pelvis and proximal lower extremities with multifocal stenoses, as detailed above. 3. Wall thickening of the distal descending colon and proximal to mid sigmoid colon. This is likely d ue to underdistention although a nonspecific colitis could appear similar. 4. No bowel obstruction. 5. Exam compromised by motion artifact. ACT 112: Negative or not required by law. Electronically signed by: Dieudonne Becerra M.D. 09/13/2021 4:49 PM
--- NOTE | 2021-09-13 17:42 | Emergency Department Note ---
History of Present Illness General Chief complaint: Dizziness Stated complaint: DIZZINESS Time Seen by Provider: 09/13/21 15:25 History of Present Illness Provider complaint: Syncope Onset (ago): day(s) 1 Associated symptoms: + shortness of breath, + syncope and + weakness; no chest pain, no cough, no fever/chills, no headaches or no nausea/vomiting 86-year-old male presents emergency department for syncope. Patient reports that she syncopal episodes or side. Patient states his first syncopal episode was at noon. He states he was walking and passed out. Patient states his second syncopal episode was after a bowel movement in the afternoon. Patient reports a mild difficulty breathing. No chest pain. Reports mild abdominal paddy n. Home Medications Medication Instructions Recorded Confirmed Type aspirin 81 mg tablet,delayed 81 mg PO QAM 08/28/18 09/13/21 History release simvastatin 20 mg tablet 20 mg PO QPM #90 tabs 12/25/19 09/13/21 Rx sotalol 80 mg tablet 40 mg PO BID #90 tabs 06/09/21 09/13/21 Rx Prevagen 10 mg PO DAILY 09/13/21 09/13/21 History cholecalciferol (vitamin D3) 50 50 mcg PO DAILY 09/13/21 09/13/21 History mcg (2,000 unit) capsule (Vitamin D3) cyanocobalamin (vitamin B-12) 100 100 mcg PO DAILY 09/13/21 09/13/21 History mcg tablet (Vitamin B-12) Allergies Allergy/AdvReac Type Severity Reaction Status Date / Time Sulfa (Sulfonamide Allergy Unknown Unknown Verified 09/13/21 17:23 Antibiotics) Past Med/Surg History Medical History Anemia Aortic aneurysm Benign essential hypertension BPH (benign prostatic hyperplasia) COPD (chronic obstructive pulmonary disease) Coronary artery disease Hematochezia History of myocardial infarction Hyperlipidemia Leukopenia Mild cognitive impairment Osteopenia determined by x-ray PAF (paroxysmal atrial fibrillation) Peripheral vascular disease Pulmonary nodule noted 09/03/2018 -Stable solid benign-appearing nodules, which are unchanged since 2016 consistent with benignity. No new pulmonary nodule. Surgical History History of back surgery History of cardiac cath CATH STENT PLACEMENT [facility] History of inguinal hernia repair, bilateral History of permanent cardiac pacemaker placement AUG 2016 Presence of cardiac pacemaker Family History Grandmother (Maternal) Diabetes Grandfather (Maternal) Diabetes Denies family history of Ovarian cancer Prostate cancer Myocardial infarction Breast cancer Colorectal cancer Social History Smoking Status: Current every day smoker Tobacco Type: Cigarettes Age Started Using Tobacco: 17; packs per day: 1; Cigarettes Per Day: 15; Second Hand Exposure: Yes; Hx Alcohol Use: Yes Alcohol type: beer Alcohol Intake Frequency: Monthly or Less Hx Substance Use: No Preferred Language: Polish Communication Ability: Effective Visual Impairment: No Limitations Hearing Ability: Hard of Hearing [employer] Instrument Repairer Required: No Beliefs That Will Affect Care: None marital status: Current Living Situation: Spouse current occupational status: retired current occupation: [employer] Feels Safe at Home: Yes Childhood Exposure to Second-Hand Smoke: Yes caffeine: Yes during the past year weight has: remained stable Dental Care, Regularly: Yes Physical Activity Frequency: Other Seatbelt Use: always Sunscreen Use: No Assistive Devices: None Review of Systems A total of 10 systems reviewed and were otherwise negative Physical Exam Vital Signs Vital Signs - 24 hr 09/13/21 14:21 09/13/21 15:54 09/13/21 15:54 Temperature 36.3 C L Temperature Source Oral Pulse Rate 90 Pulse Rate [Apical] 68 Respiratory Rate 18 18 Respiratory Effort / Characteristics Non-Labored Respiratory Depth Normal Blood Pressure 87/64 L Blood Pressure [Right Arm] 126/76 Blood Pressure Mean 71 Blood Pressure Mean [Right Arm] 92 Pulse Oximetry 96 92 92 Oxygen Delivery Method Room Air Room Air Room Air Sepsis Recent Fever Within 48 Hours No Sepsis New/Unexplained Change in Mental Status No Sepsis Action Taken by Nursing No Action Required 09/13/21 15:54 09/13/21 17:00 Temperature Temperature Source Pulse Rate Pulse Rate [Apical] 60 Respiratory Rate 18 Respiratory Effort / Characteristics Non-Labored Spontaneous Respiratory Depth Normal Blood Pressure Blood Pressure [Right Arm] 141/70 H Blood Pressure Mean Blood Pressure Mean [Right Arm] 93 Pulse Oximetry 92 90 Oxygen Delivery Method Room Air Room Air Sepsis Recent Fever Within 48 Hours Sepsis New/Unexplained Change in Mental Status Sepsis Action Taken by Nursing Physical Exam GENERAL: He is oriented to person, place, and time. He appears well-developed and well-nourished. He does not appear distressed. HENT: Exam performed. - Head: Normocephalic and atraumatic. - Right Ear: External ear normal. No mastoid tenderness. - Left Ear: External ear normal. No mastoid tenderness. - Mouth/Throat: The oropharynx is clear and moist. No trismus in the jaw. No dental abscesses or uvula swelling. No oropharyngeal exudate or tonsillar abscesses. EYES: Conjunctivae and EOM are normal. Pupils are equal, round, and reactive to light. Right eye exhibits no discharge. Left eye exhibits no discharge. No scleral icterus. NECK: Normal range of motion. Neck supple. No JVD present. No spinous process tenderness present. No carotid bruit present. No rigidity. No tracheal deviation and normal range of motion present. No Brudzinski's sign and no Kernig's sign noted. CV: Normal rate, regular rhythm, normal heart sounds and intact distal pulses. There is no peripheral edema. Palpable radial pulses bue. PULM/CHEST: Diminished breath sounds over the right chest. ABD: The abdomen is soft there is pain on palpation of the suprapubic area. MUSC/SKEL: Normal range of motion. There is no peripheral edema, tenderness or d eformity. LYMPH: No cervical adenopathy. NEURO: He is alert and oriented to person, place, and time. He has normal strength. No cranial nerve deficit or sensory deficit. Coordination and gait normal. GCS eye subscore is 4. GCS verbal subscore is 5. GCS motor subscore is 6. Cerebellar tests wnl. SKIN: Skin is warm and dry. He is not diaphoretic. PSYCH: He has a normal mood and affect. Behavior is normal. Judgment and thought content normal. Course Course 1525: The patient was evaluated in room A4. A complete history and physical exam was performed Cardiac monitoring: An order was placed for continuous cardiac monitoring. The monitor shows a rate of 60 with paced rhythm 1739: On reassessment the patient is hypoxic on room air. Patient was placed on 2 L nasal cannula which improved the patient's oxygen saturation. Labs show leukopenia. 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 Imaging shows a large right-sided pleural effusion. CTA shows no dissection or pulmonary embolus and it shows that the aortoiliac stent graft is in place with no evidence of rupture. Patient will be admitted to [facility] team Dr. Rogers evaluate the patient for admission. Administered Medications Discontinued Medications Ioversol (Optiray 320 125ml) 120 ml IV ONCE ONE Stop: 09/13/21 16:07 Last Admin: 09/13/21 16:12 Dose: 120 ml Documented By: [facility] Medical Decision Making Laboratory Data Result diagrams: 09/13/21 14:42 09/13/21 14:42 Lab Results 09/13/21 09/13/21 Range/Units 14:42 14:42 WBC 1.02 L (4.8-10.8) K/ul RBC 3.08 L (4.63-6.08) M/uL Hgb 10.3 L (14.0-18.0) g/dl Hct 32.1 L (40.1-51.0) % MCV 104.2 H (80.0-100.0) fL MCH 33.4 (25.0-34.0) pg MCHC 32.1 (32.0-36.0) g/dL RDW Std Deviation 72.4 H (36.4-46.3) fL RDW Coeff of Codie 18.9 H (11.5-14.5) % Plt Count 200 (130-400) K/uL MPV 9.3 L (9.4-12.4) fL Absolute Nucleated RBC 0.09 H (0-0) K/uL Nucleated RBC % (auto) 8.8 % Neutrophils % (Manual) 32 % Lymphocytes % (Manual) 63 % Monocytes % (Manual) 5 % Neutrophils # (Manual) 0.33 L (1.4-6.5) K/uL Total Absolute Neuts 0.33 L* (1.4-6.5) K/uL Lymphocytes # (Manual) 0.64 L (1.2-3.4) K/uL Total Abs Lymphocytes 0.64 L (1.2-3.4) K/uL Monocytes # (Manual) 0.05 L (0.24-0.82) K/uL RBC Morphology Unremarkable Sodium 137 (136-145) mmol/L Potassium 4.4 (3.5-5.1) mmol/L Chloride 104 (98-107) mmol/L Carbon Dioxide 27 (21-32) mmol/L Anion Gap 6 (3-11) BUN 33 H (6-23) mg/dl Creatinine 1.32 (0.6-1.4) mg/dl Est Cr Clr Drug Dosing 33.4 ml/min Est GFR ( Amer) 55.4 ml/min Est GFR (Non-Af Amer) 47.8 ml/min BUN/Creatinine Ratio 25.0 H (10-20) Glucose 151 H (70-99(Fasting)) mg/dl Calcium 8.7 (8.5-10.1) mg/dl Total Bilirubin 0.7 (0.2-1.0) mg/dl AST 19 (13-39) U/L ALT 10 (7-52) U/L Alkaline Phosphatase 71 (34-104) U/L Troponin I High Sens 7.8 (0-20) pg/ml Total Protein 6.5 (6.0-8.3) gm/dl Albumin 3.5 (3.4-5.0) gm/dl Globulin 3.0 (2.5-4.0) gm/dl Albumin/Globulin Ratio 1.2 (0.9-2) Imaging Data Radiologist's Impression: Chest X-Ray 09/13/21 14:28 XR chest 1V portable CLINICAL HISTORY: syncope. Evaluate cardiopulmonary status COMPARISON STUDY: 04/10/2020 TECHNIQUE: 1 view of the chest FINDINGS: Single frontal view of the chest demonstrates the heart size to be enlarged with permanent cardiac pacer in place. Compared to the previous examination, there has been interval development of a large right pleural effusion with compressive atelectasis/collapse following the right middle and right lower lobes. The left hemithorax remains clear. There is no evidence for left pleural effusion. There is no evidence for vascular congestion. There is no acute osseous pathology. IMPRESSION: 1. Interval development of large right pleural effusion with right middle lobe and right lower lobe atelectasis/collapse. ACT 112: Negative or not required by law. Electronically signed by: Reese Kellogg M.D. 09/13/2021 2:49 PM Abdomen/Pelvis CTA 09/13/21 15:35 CT ANGIOGRAPHY OF THE ABDOMEN AND PELVIS CLINICAL HISTORY: Syncope. Abdominal pain. COMPARISON STUDY: CT of the abdomen and pelvis August 26, 2016. TECHNIQUE: Helical axial images of the abdomen and pelvis were obtained during arterial phase following intravenous injection of 120 cc of Optiray 320 IV. Sagittal and coronal reconstructions were viewed as well as maximal intensity projections on an independent 3-D workstation. Automated exposure control was utilized for the study. A dose lowering technique was utilized adhering to the principles of ALARA. FINDINGS: Please note that the chest CT will be reported separately. A large right pleural effusion with compressive atelectasis of the right lower lobe is better depicted on that exam. No pneumatosis, free air or portal venous gas is present. Arterial phase images of the liver, spleen, adrenal glands, kidneys and pancreas are unremarkable. There is no biliary or pancreatic ductal dilatation. There is no evidence for a bowel obstruction. Thickening of the distal descending colon and proximal to mid sigmoid colon is noted. This may be due to underdistention. No ascites is present. There is no lymphadenopathy. No acute fracture or suspicious lesion is identified within the visualized skeletal structures. Bifurcated aortoiliac stent graft is in place. Aneurysm sac measures 2.9 x 2.1 cm. This is similar to CT of August 26, 2016. There is no evidence for rupture. This exam is compromised by motion artifact. There is moderate stenosis at the origin the celiac axis. Extensive atherosclerotic plaque is noted within the major vessels. Bilateral renal arteries are patent. There is mild narrowing of the proximal right renal artery. Superior mesenteric artery is patent proxim ally. There is moderate stenosis of the distal superior mesenteric artery. Note is made of moderate stenosis at the origin of the left internal iliac artery. The left external iliac artery is diminutive as is the left common femoral artery. There is moderate stenosis of the left common femoral artery with ulcerated plaque. Moderate stenosis of the right superficial femoral artery is noted. There is mild stenosis of the right common femoral artery. No endoleak is identified on this arterial phase exam although sensitivity is diminished given motion artifact. Lipoma within the transverse colon is incidentally noted. IMPRESSION: 1. Large right pleural effusion with compressive atelectasis of the right lower lobe. This is better depicted on the chest CT which will be reported separately. 2. Bifurcated aortoiliac stent graft in place. No change in aneurysm sac size since CT of August 26, 2016. No evidence for rupture. Extensive atherosclerotic plaque within the major vessels of the abdomen and pelvis and proximal lower extremities with multifocal stenoses, as detailed above. 3. Wall thickening of the distal descending colon and proximal to mid sigmoid colon. This is likely due to underdistention although a nonspecific colitis could appear similar. 4. No bowel obstruction. 5. Exam compromised by motion artifact. ACT 112: Negative or not required by law. Electronically signed by: Dieudonne Becerra M.D. 09/13/2021 4:49 PM Chest CTA 09/13/21 15:35 CT angio chest dissec wo/w con CLINICAL HISTORY: syncope abd pain sob . Evaluate for aortic dissection. COMPARISON STUDY: Portable chest from 09/13/2021 CT DOSE: 1270.86 mGy.cm TECHNIQUE: CT Angio of the chest was performed.followed by image post processing with coronal, and sagittal MIP reformats. Contrast Volume: Optiray 320, 120 ml FINDINGS: Vasculature: The thoracic aorta is normal in course and caliber. There is no evidence for aneurysm, dissection or leakage. There is homogeneous perfusion of the pulmonary vasculature bilaterally. No intraluminal filling defects or evidence for pulmonary embolus is seen. Airway: The airway is clear. No endobronchial lesion is identified. Lungs and pleural: As seen radiographically, there is a large right pleural effusion with compressive atelectasis/collapse involving the entire right lower lobe and the medial segment of the right middle lobe. There is only mild aerated lung anteriorly on the right. The left hemithorax is clear. There is no evidence for left pleural effusion. Mediastinum: There is no evidence for pathologic adenopathy. The heart size is within normal limits. There is no evidence for pericardial effusion. Upper abdomen:The adrenal glands are normal bilaterally. Osseous structures: There is no acute osseous pathology. Impression: 1. Negative CTA of the thoracic aorta and pulmonary arteries. 2. As seen radiographically, there is a large right pleural effusion with compressive atelectasis/collapse involving the entire right lower lobe and in the segment of the right middle lobe. 3. Left hemithorax is clear. ACT 112: Negative or not required by law. Electronically signed by: Reese Kellogg M.D. 09/13/2021 4:[address] 09/13/21 15:35 CT OF THE HEAD WITHOUT CONTRAST CLINICAL HISTORY: Syncope. COMPARISON STUDY: Head CT April 10, 2020. TECHNIQUE: Helical axial images of the head were obtained without IV contrast. Automated exposure control was utilized for the study. A dose lowering technique was utilized adhering to the principles of ALARA. FINDINGS: No acute intracranial hemorrhage, midline shift or mass effect is present. Atrophy is noted. The ventricular system is unremarkable. The basal cisterns are patent. No extra-axial collections are present. There are no findings to suggest acute dural sinus thrombosis or acute territorial infarct. No significant calvarial abnormalities are present. Small amount of fluid within the bilateral mastoid air cells is similar to prior exam. IMPRESSION: No acute intracranial findings. No change in appearance of the brain. ACT 112: Negative or not required by law. Electronically signed by: Dieudonne Becerra M.D. 09/13/2021 4:29 PM ECG Data Additional Comments: Paced rhythm with a rate of 60. CO 206 QRS 164 QTC 486. No ectopy. MDM Narrative On reassessment the patient is hypoxic on room air. Patient was placed on 2 L nasal cannula which improved the patient's oxygen saturation. Labs show leukopenia. 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 Imaging shows a large right-sided pleural effusion. CTA shows no dissection or pulmonary embolus and it shows that the aortoiliac stent graft is in place with no evidence of rupture. Patient will be admitted to the [facility] Dr. Rogers evaluate the patient for admission. Impression & Plan Hypoxia, Leukopenia, Pleural effusion Discharge Plan Visit Data Chief Complaint: Dizziness Stated Complaint: DIZZINESS ED Provider: Benedict Haddad Discharge Problem: Hypoxia, Leukopenia, Pleural effusion Patient Disposition: Admitted As Inpatient Forms Stand Alone Forms: My [facility] Prescriptions Prescriptions: No Action simvastatin 20 mg tablet 20 mg PO QPM Qty: 90 1RF sotalol 80 mg tablet 40 mg PO BID Qty: 90 2RF aspirin 81 mg tablet,delayed release (DR/EC) 81 mg PO QAM cyanocobalamin (vitamin B-12) [Vitamin B-12] 100 mcg Tablet 100 mcg PO DAILY cholecalciferol (vitamin D3) [Vitamin D3] 50 mcg (2,000 unit) Capsule 50 mcg PO DAILY Prevagen 10 mg PO DAILY Referrals Referrals: Nilesh Nguyen CRNP [Primary Care Provider] -
--- NOTE | 2021-09-13 17:50 | History & Physical Report ---
Date of Service September 13, 2021 Assessment & Plan (1) Hypoxia: Plan: Acute (suspect chronic also) hypoxic respiratory failure May have multiple causes, including COPD with mild exacerbation, large pleural effusion Patient is not oxygen dependent at home Admit to a telemetry bed Treatment as noted below (2) Pleural effusion: Plan: Large right lower lobe effusion, possible causes include malignant, heart failure, parapneumonic Not present on previous film, 2D echo from 03/2019 is also unremarkable For now, will start treatment with IV antibiotics with Rocephin and Zithromax Patient has significant wheeze, will give IV Solu-Medrol 125 mg x 1, continue with 40 mg every 8 hours Will consult pulmonology, patient may require diagnostic/therapeutic thoracentesis with fluid analysis Consider short-term interval CT imaging post thoracentesis (3) PAF (paroxysmal atrial fibrillation): Plan: Patient is not on anticoagulation, will continue other cardiac medications including sotalol as ordered (4) COPD (chronic obstructive pulmonary disease): Plan: Likely chronic, patient does have a wheeze and be treated with IV steroids as noted above Pulmonology consultation further recommendations (5) Hyperlipidemia: Plan: Continue simvastatin or pharmacy equivalent (6) Coronary artery disease: Plan: Patient is on low-dose aspirin (7) Benign essential hypertension: Plan: Monitor for signs of urinary retention Admission and Anticipated Discharge Date Admission Date: Patient requesting full code, will order PT/OT evaluation History of Present Illness Chief Complaint: Generalized weakness/shortness of breath Primary Care Provider: RYDER Zamarripa This is an 86-year-old male with past medical history of BPH, 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 Patient is alone in the room and is a somewhat unreliable historian. Patient tells me that he was bringing his to the hospital today in his truck. He does still drive. He had to stop at a [employer] and [place] as he had to have a bowel movement. Unfortunately, he had difficulty getting off the toilet. Is unclear if he required help or if he did it under his own power. However, he was able to leave that she in his truck. He then stopped at another she did [place] as he continued to feel unwell. At this point, he likely required assistance to get off the toilet and was again escorted to his truck. Per the patient, he was able to drive himself to the hospital and was able to register himself, complaining of generalized weakness. At the time my evaluation, the patient's O2 sat was around 89% on room air, patient was using any supplemental oxygen. He denies any significant shortness of breath, recent significant weight loss, new urinary difficulties, or other issues. Work-up included a CT of the chest which showed a significant right pleural effusion which does not appear on previous films from late 2020. Patient is now being admitted for hypoxia and work-up of this pleural effusion. Allergies Allergy/AdvReac Type Severity Reaction Status Date / Time Sulfa (Sulfonamide Allergy Unknown Unknown Verified 09/13/21 17:23 Antibiotics) Home Medications Medication Instructions Recorded Confirmed Type aspirin 81 mg tablet,delayed 81 mg PO QAM 08/28/18 09/13/21 History release simvastatin 20 mg tablet 20 mg PO QPM #90 tabs 12/25/19 09/13/21 Rx sotalol 80 mg tablet 40 mg PO BID #90 tabs 06/09/21 09/13/21 Rx Prevagen 10 mg PO DAILY 09/13/21 09/13/21 History cholecalciferol (vitamin D3) 50 50 mcg PO DAILY 09/13/21 09/13/21 History mcg (2,000 unit) capsule (Vitamin D3) cyanocobalamin (vitamin B-12) 100 100 mcg PO DAILY 09/13/21 09/13/21 History mcg tablet (Vitamin B-12) Past Med/Surg History Medical History (Updated 09/13/21 @ 17:53 by Enmanuel Rogers DO) Anemia Aortic aneurysm Benign essential hypertension BPH (benign prostatic hyperplasia) COPD (chronic obstructive pulmonary disease) Coronary artery disease Hematochezia History of myocardial infarction Hyperlipidemia Hypoxia Leukopenia Mild cognitive impairment Osteopenia determined by x-ray PAF (paroxysmal atrial fibrillation) Peripheral vascular disease Pulmonary nodule noted 09/03/2018 -Stable solid benign-appearing nodules, which are unchanged since 2016 consistent with benignity. No new pulmonary nodule. Surgical History History of back surgery History of cardiac cath CATH STENT PLACEMENT [facility] History of inguinal hernia repair, bilateral History of permanent cardiac pacemaker placement AUG 2016 Presence of cardiac pacemaker Family History Grandmother (Maternal) Diabetes Grandfather (Maternal) Diabetes Denies family history of Ovarian cancer Prostate cancer Myocardial infarction Breast cancer Colorectal cancer Social History Smoking Status: Current every day smoker Tobacco Type: Cigarettes Age Started Using Tobacco: 17; packs per day: 1; Cigarettes Per Day: 15; Second Hand Exposure: Yes; Hx Alcohol Use: Yes Alcohol type: beer Alcohol Intake Frequency: Monthly or Less Hx Substance Use: No Preferred Language: Thai Communication Ability: Effective Visual Impairment: No Limitations Hearing Ability: Hard of Hearing Senior Pricing Analyst Required: No Beliefs That Will Affect Care: None marital status: Current Living Situation: Spouse current occupational status: retired current occupation: [employer] Feels Safe at Home: Yes Childhood Exposure to Second-Hand Smoke: Yes caffeine: Yes during the past year weight has: remained stable Dental Care, Regularly: Yes Physical Activity Frequency: Other Seatbelt Use: always Sunscreen Use: No Assistive Devices: None Review of Systems Constitutional: no fever, no chills, no weakness, no weight loss and no weight gain Eyes: as per Subjective / HPI Respiratory: + cough, + dyspnea and + sputum production; no chest congestion and no dyspnea on exertion Cardiovascular: no chest pain, no orthopnea, no palpitations, no lightheadedness and no edema Gastrointestinal: no abdominal pain, no nausea, no vomiting, no constipation and no diarrhea/loose stools Musculoskeletal: no back pain, no neck pain, no joint pain, no stiffness and no myalgia Integumentary: no rash Neurologic: + unsteadiness and + generalized weakness; no gait abnormality and no falls Physical Exam Constitutional: cooperative; no acute distress Neck: trachea midline, no thyromegaly Respiratory: normal respiratory effort Auscultation: + wheezes; no crackles, no rales and no rhonchi diminished, dull to precussion R base Cardiovascular: Rate/Rhythm: regular rate and regular rhythm Heart Sounds: normal S1 and normal S2 Gastrointestinal (Abdomen): Inspection/Auscultation: abdomen normal to inspection Percussion/Palpation: abdomen soft; abdomen nontender, no guarding, abdomen not rigid and no hepatosplenomegaly Skin: no rashes, warm and dry Neurologic: patellar DTR's 2+ bilat, sensation intact and PERRL, EOMI, accommodation nl, no face palsy, no dysarthria Results & Data Results & Data ([facility]) Vital Signs (Past 12 Hours) Vital Signs Temp Pulse Pulse Resp BP BP Pulse Ox 09/13/21 17:00 60 18 141/70 H 90 09/13/21 15:54 92 09/13/21 15:54 68 18 126/76 92 09/13/21 15:54 92 09/13/21 14:21 36.3 C L 90 18 87/64 L 96 O2 Del Method 09/13/21 17:00 Room Air 09/13/21 15:54 Room Air 09/13/21 15:54 Room Air 09/13/21 15:54 Room Air 09/13/21 14:21 Room Air Laboratory Results Laboratory Results WBC 1.02 K/ul (4.8-10.8) L 09/13/21 14:42 RBC 3.08 M/uL (4.63-6.08) L 09/13/21 14:42 Hgb 10.3 g/dl (14.0-18.0) L 09/13/21 14:42 Hct 32.1 % (40.1-51.0) L 09/13/21 14:42 MCV 104.2 fL (80.0-100.0) H 09/13/21 14:42 MCH 33.4 pg (25.0-34.0) 09/13/21 14:42 MCHC 32.1 g/dL (32.0-36.0) 09/13/21 14:42 RDW Std Deviation 72.4 fL (36.4-46.3) H 09/13/21 14:42 RDW Coeff of Codie 18.9 % (11.5-14.5) H 09/13/21 14:42 Plt Count 200 K/uL (130-400) 09/13/21 14:42 MPV 9.3 fL (9.4-12.4) L 09/13/21 14:42 Absolute Nucleated RBC 0.09 K/uL (0-0) H 09/13/21 14:42 Nucleated RBC % (auto) 8.8 % 09/13/21 14:42 Neutrophils % (Manual) 32 % 09/13/21 14:42 Lymphocytes % (Manual) 63 % 09/13/21 14:42 Monocytes % (Manual) 5 % 09/13/21 14:42 Neutrophils # (Manual) 0.33 K/uL (1.4-6.5) L 09/13/21 14:42 Total Absolute Neuts 0.33 K/uL (1.4-6.5) L* 09/13/21 14:42 Lymphocytes # (Manual) 0.64 K/uL (1.2-3.4) L 09/13/21 14:42 Total Abs Lymphocytes 0.64 K/uL (1.2-3.4) L 09/13/21 14:42 Monocytes # (Manual) 0.05 K/uL (0.24-0.82) L 09/13/21 14:42 RBC Morphology Unremarkable 09/13/21 14:42 Sodium 137 mmol/L (136-145) 09/13/21 14:42 Potassium 4.4 mmol/L (3.5-5.1) 09/13/21 14:42 Chloride 104 mmol/L (98-107) 09/13/21 14:42 Carbon Dioxide 27 mmol/L (21-32) 09/13/21 14:42 Anion Gap 6 (3-11) 09/13/21 14:42 BUN 33 mg/dl (6-23) H 09/13/21 14:42 Creatinine 1.32 mg/dl (0.6-1.4) 09/13/21 14:42 Est Cr Clr Drug Dosing 33.4 ml/min 09/13/21 14:42 Est GFR ( Amer) 55.4 ml/min 09/13/21 14:42 Est GFR (Non-Af Amer) 47.8 ml/min 09/13/21 14:42 BUN/Creatinine Ratio 25.0 (10-20) H 09/13/21 14:42 Glucose 151 mg/dl (70-99(Fasting)) H 09/13/21 14:42 Calcium 8.7 mg/dl (8.5-10.1) 09/13/21 14:42 Total Bilirubin 0.7 mg/dl (0.2-1.0) 09/13/21 14:42 AST 19 U/L (13-39) 09/13/21 14:42 ALT 10 U/L (7-52) 09/13/21 14:42 Alkaline Phosphatase 71 U/L (34-104) 09/13/21 14:42 Troponin I High Sens 7.8 pg/ml (0-20) 09/13/21 14:42 Total Protein 6.5 gm/dl (6.0-8.3) 09/13/21 14:42 Albumin 3.5 gm/dl (3.4-5.0) 09/13/21 14:42 Globulin 3.0 gm/dl (2.5-4.0) 09/13/21 14:42 Albumin/Globulin Ratio 1.2 (0.9-2) 09/13/21 14:42 Impressions Chest X-Ray 09/13/21 14:28 XR chest 1V portable CLINICAL HISTORY: syncope. Evaluate cardiopulmonary status COMPARISON STUDY: 04/10/2020 TECHNIQUE: 1 view of the chest FINDINGS: Single frontal view of the chest demonstrates the heart size to be enlarged with permanent cardiac pacer in place. Compared to the previous examination, there has been interval development of a large right pleural effusion with compressive atelectasis/collapse following the right middle and right lower lobes. The left hemithorax remains clear. There is no evidence for left pleural effusion. There is no evidence for vascular congestion. There is no acute osseous pathology. IMPRESSION: 1. Interval development of large right pleural effusion with right middle lobe and right lower lobe atelectasis/collapse. ACT 112: Negative or not required by law. Electronically signed by: Reese Kellogg M.D. 09/13/2021 2:49 PM Abdomen/Pelvis CTA 09/13/21 15:35 CT ANGIOGRAPHY OF THE ABDOMEN AND PELVIS CLINICAL HISTORY: Syncope. Abdominal pain. COMPARISON STUDY: CT of the abdomen and pelvis August 26, 2016. TECHNIQUE: Helical axial images of the abdomen and pelvis were obtained during arterial phase following intravenous injection of 120 cc of Optiray 320 IV. Sagittal and coronal reconstructions were viewed as well as maximal intensity projections on an independent 3-D workstation. Automated exposure control was utilized for the study. A dose lowering technique was utilized adhering to the principles of ALARA. FINDINGS: Please note that the chest CT will be reported separately. A large right pleural effusion with compressive atelectasis of the right lower lobe is better depicted on that exam. No pneumatosis, free air or portal venous gas is present. Arterial phase images of the liver, spleen, adrenal glands, kidneys and pancreas are unremarkable. There is no biliary or pancreatic ductal dilatation. There is no evidence for a bowel obstruction. Thickening of the distal descending colon and proximal to mid sigmoid colon is noted. This may be due to underdistention. No ascites is present. There is no lymphadenopathy. No acute fracture or suspicious lesion is identified within the visualized skeletal structures. Bifurcated aortoiliac stent graft is in place. Aneurysm sac measures 2.9 x 2.1 cm. This is similar to CT of August 26, 2016. There is no evidence for rupture. This exam is compromised by motion artifact. There is moderate stenosis at the origin the celiac axis. Extensive atherosclerotic plaque is noted within the major vessels. Bilateral renal arteries are patent. There is mild narrowing of the proximal right renal artery. Superior mesenteric artery is patent proximally. There is moderate stenosis of the distal superior mesenteric artery. Note is made of moderate stenosis at the origin of the left internal iliac artery. The left external iliac artery is diminutive as is the left common femoral artery. There is moderate stenosis of the left common femoral artery with ulcerated plaque. Moderate stenosis of the right superficial femoral artery is noted. There is mild stenosis of the right common femoral artery. No endoleak is identified on this arterial phase exam although sensitivity is diminished given motion artifact. Lipoma within the transverse colon is incidentally noted. IMPRESSION: 1. Large right pleural effusion with compressive atelectasis of the right lower lobe. This is better depicted on the chest CT which will be reported separately. 2. Bifurcated aortoiliac stent graft in place. No change in aneurysm sac size since CT of August 26, 2016. No evidence for rupture. Extensive atherosclerotic plaque within the major vessels of the abdomen and pelvis and proximal lower extremities with multifocal stenoses, as detailed above. 3. Wall thickening of the distal descending colon and proximal to mid sigmoid colon. This is likely due to underdistention although a nonspecific colitis could appear similar. 4. No bowel obstruction. 5. Exam compromised by motion artifact. ACT 112: Negative or not required by law. Electronically signed by: Dieudonne Becerra M.D. 09/13/2021 4:49 PM Chest CTA 09/13/21 15:35 CT angio chest dissec wo/w con CLINICAL HISTORY: syncope abd pain sob . Evaluate for aortic dissection. COMPARISON STUDY: Portable chest from 09/13/2021 CT DOSE: 1270.86 mGy.cm TECHNIQUE: CT Angio of the chest was performed.followed by image post processing with coronal, and sagittal MIP reformats. Contrast Volume: Optiray 320, 120 ml FINDINGS: Vasculature: The thoracic aorta is normal in course and caliber. There is no evidence for aneurysm, dissection or leakage. There is homogeneous perfusion of the pulmonary vasculature bilaterally. No intraluminal filling defects or evidence for pulmonary embolus is seen. Airway: The airway is clear. No endobronchial lesion is identified. Lungs and pleural: As seen radiographically, there is a large right pleural effusion with compressive atelectasis/collapse involving the entire right lower lobe and the medial segment of the right middle lobe. There is only mild aerated lung anteriorly on the right. The left hemithorax is clear. There is no evidence for left pleural effusion. Mediastinum: There is no evidence for pathologic adenopathy. The heart size is within normal limits. There is no evidence for pericardial effusion. Upper abdomen:The adrenal glands are normal bilaterally. Osseous structures: There is no acute osseous pathology. Impression: 1. Negative CTA of the thoracic aorta and pulmonary arteries. 2. As seen radiographically, there is a large right pleural effusion with compressive atelectasis/collapse involving the entire right lower lobe and in the segment of the right middle lobe. 3. Left hemithorax is clear. ACT 112: Negative or not required by law. Electronically signed by: Reese Kellogg M.D. 09/13/2021 4:[address] 09/13/21 15:35 CT OF THE HEAD WITHOUT CONTRAST CLINICAL HISTORY: Syncope. COMPARISON STUDY: Head CT April 10, 2020. TECHNIQUE: Helical axial images of the head were obtained without IV contrast. Automated exposure control was utilized for the study. A dose lowering technique was utilized adhering to the principles of ALARA. FINDINGS: No acute intracranial hemorrhage, midline shift or mass effect is present. Atrophy is noted. The ventricular system is unremarkable. The basal cisterns are patent. No extra-axial collections are present. There are no findings to suggest acute dural sinus thrombosis or acute territorial infarct. No significant calvarial abnormalities are present. Small amount of fluid within the bilateral mastoid air cells is similar to prior exam. IMPRESSION: No acute intracranial findings. No change in appearance of the brain. ACT 112: Negative or not required by law. Electronically signed by: Dieudonne Becerra M.D. 09/13/2021 4:29 PM PG Care Time/CCT Total # of Minutes Spent Total Time Spent with Patient: Total time spent is greater than 50% in coordination of care (as documented) at patient's floor/unit and/or counseling patient: Coding Level of Care Code 37042 Initial Inpt Care Lvl 3 Diagnoses Hypoxia R09.02 Pleural effusion J90 PAF (paroxysmal atrial fibrillation) I48.0 COPD (chronic obstructive pulmonary disease) J44.9 Hyperlipidemia E78.5 Coronary artery disease I25.10 Benign essential hypertension I10
[2021-09-13] MEDS ORDERED: ACETAMINOPHEN 325 MG TAB PO PRN (21:19)
[2021-09-13] MEDS ORDERED: methylPREDNISolone 125 MG/2 ML VIAL IV STA (21:19)
[2021-09-13] MEDS ORDERED: ONDANSETRON INJ 2 MG/ML 2 ML VIAL IV PRN (21:19)
[2021-09-13] MEDS: HEPARIN SOD 5,000 UNIT/0.5 ML VIAL SQ SCH (21:54)
[2021-09-13] MEDS: ALBUT/IPRATROP 3MG/0.5MG NEB 3 ML VIAL NEB SCH (21:54)
[2021-09-13] MEDS: SIMVASTATIN 20 MG TAB PO SCH (21:54)
[2021-09-13] MEDS: SOTALOL HCL 80 MG TAB PO SCH (21:54)
[2021-09-14 01:30] LABS: Appearance Urine Clear (Clear); Bacteria Urine Automated Negative (Negative); Bilirubin Urine Negative (Negative); Blood Urine Negative (Negative); Color Urine Yellow; Glucose Urine UA Negative (Negative); Ketones Urine Trace (Negative); Leukocyte Esterase Urine Negative (Negative); Nitrite Urine Negative (Negative); Protein Urine 1+ (Negative); RBC Urine Automated 0-4 /hpf (0-4); Specific Gravity Urine > 1.045 (1.000-1.030); Urobilinogen Urine Negative (Negative); pH Urine 5.5 (4.5-7.5)
[2021-09-14] MEDS: methylPREDNISolone 40 MG in SYRINGE 0 ML IV SCH ×2 (05:52→13:34)
[2021-09-14] MEDS: HEPARIN SOD 5,000 UNIT/0.5 ML VIAL SQ SCH (06:18)
[2021-09-14 06:49] LABS: Albumin Globulin Ratio 1.2 (0.9-2); Albumin Level 3.2 gm/dl (3.4-5.0); BUN Creatinine Ratio 32.1 (10-20); Bilirubin,Total 0.6 mg/dl (0.2-1.0); Calcium 8.2 mg/dl (8.5-10.1); Creatinine Clr Calc Pharmacy 41.6 ml/min; Est GFR (African American) 72.3 ml/min; Est GFR (Non-African American) 62.4 ml/min; Globulin 2.6 gm/dl (2.5-4.0); Potassium 4.3 mmol/L (3.5-5.1); Total Protein 5.8 gm/dl (6.0-8.3)
[2021-09-14] MEDS: ALBUT/IPRATROP 3MG/0.5MG NEB 3 ML VIAL NEB SCH ×4 (06:50→19:45)
--- NOTE | 2021-09-14 07:35 | Pulmonary Consultation ---
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 Pleural effusion could be coming from that. --COPD with emphysema Not on any inhalers at home We will start the patient on Incruse to be used on a daily basis --Current smoker [id number] smoking history Encouraged to quit --MDS Plan: For thoracentesis later today Hold all anticoagulation No indication for steroids. We will discontinue it. Patient will benefit from incentive spirometry Consent was obtained from the patient, patient's was also made aware on the phone and she also agreed for the procedure Please note the above document was generated using voice recognition software. It may contain grammatical, syntax or spelling errors.Any formal questions or concerns about the content, text or information contained within the body of this dictation should be directly addressed to the provider for clarification. History of Present Illness Attending Physician: Enmanuel Rogers DO History of Present Illness 86-year-old male was admitted to hospital because of shortness of breath and hypoxia Past medical history: Paroxysmal A. fib not on anticoagulation, COPD, BPH Patient was found to have large right-sided pleural effusion, pulmonary were consulted to take care of that At time of examination patient denied any issues when it comes to his breathing He was saturating 89-90% on room air. Denies any cough. No chest pain No headache, no nausea, no vomiting No dysuria, diarrhea. Patient denies any previous history of thoracentesis. There has been decrease in his appetite and he has lost some weight. Social history: [id number] smoking history. 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 No history of lung cancer in the family Allergies Allergy/AdvReac Type Severity Reaction Status Date / Time Sulfa (Sulfonamide Allergy Unknown Unknown Verified 09/13/21 17:23 Antibiotics) Home Medications Medication Instructions Recorded Confirmed Type aspirin 81 mg tablet,delayed 81 mg PO QAM 08/28/18 09/13/21 History release simvastatin 20 mg tablet 20 mg PO QPM #90 tabs 12/25/19 09/13/21 Rx sotalol 80 mg tablet 40 mg PO BID #90 tabs 06/09/21 09/13/21 Rx Prevagen 10 mg PO DAILY 09/13/21 09/13/21 History cholecalciferol (vitamin D3) 50 50 mcg PO DAILY 09/13/21 09/13/21 History mcg (2,000 unit) capsule (Vitamin D3) cyanocobalamin (vitamin B-12) 100 100 mcg PO DAILY 09/13/21 09/13/21 History mcg tablet (Vitamin B-12) Patient History Medical History (Updated 09/14/21 @ 17:42 by Federico Gomez MD) Anemia Aortic aneurysm Benign essential hypertension BPH (benign prostatic hyperplasia) COPD (chronic obstructive pulmonary disease) Coronary artery disease Hematochezia History of myocardial infarction Hyperlipidemia Hypoxia Leukopenia MDS (myelodysplastic syndrome) Mild cognitive impairment Osteopenia determined by x-ray PAF (paroxysmal atrial fibrillation) Pancytopenia Peripheral vascular disease Pulmonary nodule noted 09/03/2018 -Stable solid benign-appearing nodules, which are unchanged since 2016 consistent with benignity. No new pulmonary nodule. Surgical History History of back surgery History of cardiac cath CATH STENT PLACEMENT [facility] History of inguinal hernia repair, bilateral History of permanent cardiac pacemaker placement AUG 2016 Presence of cardiac pacemaker Family History Grandmother (Maternal) Diabetes Grandfather (Maternal) Diabetes Denies family history of Ovarian cancer Prostate cancer Myocardial infarction Breast cancer Colorectal cancer Social History Smoking Status: Current every day smoker Tobacco Type: Cigarettes Age Started Using Tobacco: 17; packs per day: 1; Cigarettes Per Day: 15; Second Hand Exposure: Yes; Do You Dip or Chew Tobacco: No; Hx Alcohol Use: Yes Alcohol type: beer Alcohol Intake Frequency: Monthly or Less Hx Substance Use: No Preferred Language: Citizen Of [place] Communication Ability: Effective Visual Impairment: No Limitations Hearing Ability: Hard of Hearing Sales Representative Marine Supplies Required: No Beliefs That Will Affect Care: None marital status: Current Living Situation: Spouse current occupational status: retired 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 Other Information That Helps Us Care for You: No Feels Safe at Home: Yes Safety Concerns: Feels Safe At This Time Childhood Exposure to Second-Hand Smoke: Yes caffeine: Yes during the past year weight has: remained stable Dental Care, Regularly: Yes Physical Activity Frequency: Other Seatbelt Use: always Sunscreen Use: No Assistive Devices: None Review of Systems Review of Systems: All systems reviewed & are unremarkable except as noted in HPI & below Physical Exam Physical Exam: Constitutional: No acute distress HEENT: EOMI, PERRLA Respiratory system: Decreased air entry on the right side, no wheeze, no rhonchi, mild crackles right side CVS: S1-S2 positive, distant heart sounds, left-sided pacemaker Abdomen: Soft, nontender, nondistended, positive bowel sounds x4 Extremities: +2 pulses bilaterally radialis/ dorsalis pedis, no cyanosis, no edema Neuro: Awake alert oriented x3 Psych: Normal mood and affect G/U: No Winn Skin: no rashes, warm and dry Lymphatic: no cervical or axillary lymphadenopathy Results & Data Results & Data ([facility]) Vital Signs (Past 12 Hours) Vital Signs Pulse Resp BP Pulse Ox Pulse Ox O2 Del Method O2 Del Method 09/14/21 06:50 61 16 94 Nasal Cannula 09/14/21 05:54 78 20 100/75 90 Nasal Cannula 09/14/21 04:20 71 22 113/67 92 Nasal Cannula 09/14/21 03:11 58 L 22 108/55 L 94 Nasal Cannula 09/13/21 22:04 63 16 144/77 H 99 Nebulizer 09/13/21 22:00 73 18 144/77 H 94 Nebulizer 09/13/21 21:19 72 21 132/71 95 09/13/21 21:19 96 Nasal Cannula 09/13/21 21:00 68 12 132/71 95 Room Air O2 Flow Rate O2 Flow Rate 09/14/21 06:50 3 09/14/21 05:54 2 09/14/21 04:20 2 09/14/21 03:11 2 09/13/21 22:04 10 09/13/21 22:00 09/13/21 21:19 09/13/21 21:19 2 09/13/21 21:00 Laboratory Results 09/13/21 14:42 09/14/21 05:34 PG Care Time/CCT Total # of Minutes Spent Total Time Spent with Patient: Total time spent is greater than 50% in coordination of care (as documented) at patient's floor/unit and/or counseling patient: Coding Level of Care Code 88836 Initial Inpt Care Lvl 3 Diagnoses Pleural effusion J90 COPD (chronic obstructive pulmonary disease) J44.9 Acute respiratory failure with hypoxia J96.01 Current smoker F17.200
[2021-09-14] MEDS ORDERED: ASPIRIN 81 MG ECTAB PO SCH (09:00)
[2021-09-14] MEDS ORDERED: NON-FORMULARY MEDICATION (Prevagen 10 MG) PO SCH (09:00)
--- NOTE | 2021-09-14 09:50 | Hospitalist Progress Note ---
Date of Service September 14, 2021 Assessment & Plan (1) Hypoxia: (2) Pleural effusion: (3) PAF (paroxysmal atrial fibrillation): (4) COPD (chronic obstructive pulmonary disease): (5) Hyperlipidemia: (6) Coronary artery disease: (7) Anemia: (8) Pulmonary nodule: (9) Presence of cardiac pacemaker: (10) Syncope: (11) Neutropenia: (12) Pancytopenia: (13) MDS (myelodysplastic syndrome): Plan Patient is a 86 y/o male with PMHx of PAF (pacemaker), mild cognitive impairment, HLD, COPD, HTN, 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 #Hypoxia -? sec to pleural effusion and underlying copd with possible exacerbation -Patient is currently at 93% on 2L NC. He does not use any oxygen at home. -Will continue to monitor for increased oxygen needs #Near Syncope -Head Ct was unremarkable -h/o hypotension in past. -follow BP. holding lisinopril. #Pleural effusion -Large pleural effusion on the R seen on CT. -Pulmonary consulted and reviewed CT with the following statement: "Kleber trilobular emphysema appreciated, Large right-sided pleural effusion with collapse of the right lower lobe, Right middle lobe partial atelectasis, No mediastinal lymphadenopathy" -Diagnostic and therapeutic thoracentesis performed today. Results pending. -CXR after thoracentesis showed residual moderate size right pleural effusion -Etiologies include malignances, HF, parapneumonic -Started on Rocephin and Zithromax. No clear signs of anything infectious but will continue for now and may D/C pending pleural fluid results. #COPD -Patient may have some underlying COPD exacerbation -Continue IV solumedrol #MDS #neutropenia #pancytopenia #Chronic Anemia -Follows with hematology/oncology. Last seen on 09/07. -receives Filgrastim and Procrit every 2 weeks. #PAF #HTN -Saw cardiology on 08/12 outpatient for episodes of hypotension: pacemaker showed several instances of afib over the last 6 months. -Continue home meds of sotalol. -On lisinopril in the past, stopped #CAD -holding aspirin -May restart after thoracentesis #HLD -Continue home meds Code status: full code DVT ppx: holding d/t thoracentesis Held home meds: none Consults: pulmonary Dispo: med tele Thank you for allowing me to participate in the care of your patient. -Dr. Tyree Bell PGY1 Admission and Anticipated Discharge Date Admission Date: September 13, 2021 Supervising Physician Co-Signing Physician Notes Resident Physician Supervision Note: I independently interviewed and examined the patient and verified the coleman history and physical, reviewed labs and image studies and agree with resident Dr. Bell findings and care plan. Subjective Patient was seen bedside this AM. He has no complaints at this time. He is unsure why his doctor told me to come to the ED. He has no CP, SOB, N/V, or ab pain. Patient has smoked a pack a day for "his whole life". Note: patient is 87%-90% on room air. Currently 93% on 2L NC. He does not require home oxygen. Review of Systems Review of Systems: All systems reviewed & are unremarkable except as noted in HPI & below Physical Exam Constitutional: WD/WN, vitals as above ENMT: external ear and nose normal, oropharynx normal Neck: trachea midline, no thyromegaly Respiratory: Diminished breath sounds in the R lung, worse in the R lower lobe Cardiovascular: RRR, no murmur, no edema Gastrointestinal (Abdomen): normal bowel sounds, soft, nontender, no hepatosplenomegaly Skin: no rashes, warm and dry Results & Data Results & Data ([facility]) Vital Signs (Past 12 Hours) Vital Signs Pulse Resp BP Pulse Ox O2 Del Method O2 Flow Rate 09/14/21 08:00 63 18 113/62 93 Nasal Cannula 09/14/21 06:50 61 16 94 Nasal Cannula 3 09/14/21 05:54 78 20 100/75 90 Nasal Cannula 2 09/14/21 04:20 71 22 113/67 92 Nasal Cannula 2 09/14/21 03:11 58 L 22 108/55 L 94 Nasal Cannula 2 09/13/21 22:04 63 16 144/77 H 99 Nebulizer 10 09/13/21 22:00 73 18 144/77 H 94 Nebulizer Resident Activity Tracking Resident Involvement: Resident Care Provided Care Provided: Adult Hospital Medicine (1) Neutropenia Neutropenia type: unspecified Qualified Code(s): D70.9 - Neutropenia, unspecified
[2021-09-14] MEDS: SOTALOL HCL 80 MG TAB PO SCH ×2 (09:55→20:27)
--- NOTE | 2021-09-14 14:31 | Electrocardiogram Report ---
Test Reason : Blood Pressure : / mmHG Vent. Rate : 060 BPM Atrial Rate : 057 BPM P-R Int : 206 ms QRS Dur : 164 ms QT Int : 486 ms P-R-T Axes : 000 265 072 degrees QTc Int : 486 ms AV dual-paced rhythm Abnormal ECG When compared with ECG of 10-APR-2020 16:00, Electronic ventricular pacemaker has replaced Sinus rhythm Confirmed by Woodrow Adkins ([id number]) on 09/14/2021 2:30:54 PM Referred By: REFERRED SELF Confirmed By:Woodrow Adkins
--- NOTE | 2021-09-14 16:35 | Procedure Note ---
Procedure Note Date of Service September 14, 2021 Note Procedure: Diagnostic therapeutic ultrasound-guided catheter thoracentesis Tax Record Clerk: Dr. Federico Gomez Indication: Right-sided pleural effusion Consent: Signed by patient and verified with timeout prior to procedure Anesthesia: 1% lidocaine without epinephrine local. Procedure: Consent was verified and timeout performed. Appropriate imaging studies were reviewed prior to the procedure. Patient was placed in a seated position and limited thoracic ultrasound was performed of the right chest. See separate imaging. Appropriate site above the diaphragm for thoracentesis was selected. The skin was prepped and draped in normal sterile fashion. Lidocaine was used for local analgesia. Fluid was aspirated via the finder needle. A small skin ravi was made with the scalpel and the catheter over the needle apparatus was advanced over the rib into the pleural space. Using the syringe one-way valve system, a total of 2.6 L of dark cloudy serous fluid was removed. The catheter was removed and observed to be intact. A sterile dressing was applied. Post procedure chest x-ray was ordered. Postprocedure ultrasound did not show any signs of pneumothorax. Patient still has approximately founded amount of pleural fluid Fluid was sent for labs, culture and cytology. Bedside ultrasound: There was no signs of pleural effusion on the left side. A lines appreciated anterior and posterior on the left side Atelectasis on the right side with large homogeneous looking right-sided pleural effusion Complications: None Blood loss: None Coding CPT Codes Pulmonary/Thoracic - Pulmonary and Thoracic: 67310 Thoracentesis w/o imaging ([id number]) Pulmonary/Thoracic - Pulmonary and Thoracic: 65829 US, Chest, real time with imaging documentation ([id number]) [facility] [place] Procedure Codes ([place]) Pulmonary/Thoracic Procedure 1: Pulmonary and Thoracic: 30287 Thoracentesis w/o imaging Procedure 2: Pulmonary and Thoracic: 90334 US, Chest, real time with imaging documentation
--- NOTE | 2021-09-14 16:49 | XRay Report ---
XR chest 1V portable CLINICAL HISTORY: S/P Thoracentesis. Evaluate for pneumothorax COMPARISON STUDY: 09/13/2021 TECHNIQUE: 1 view of the chest FINDINGS: Single frontal view of the chest demonstrates the cardiomediastinal silhouette to be within normal li mits. Cardiac pacer is again seen. There is evidence for interval right thoracentesis with moderate r esidual right pleural effusion and right basilar atelectasis still present. There is no evidence for pneumothorax. The left hemithorax is clear. There is no evidence for left pleural effusion . There is no evidence f or vascular congestion. There is no acute osseous pathology. IMPRESSION: 1. Evidence for right thoracentesis with decrease right pleural effusion. However, there is still res idual moderate size right pleural effusion and right basilar atelectasis with no evidence for pneumot horax. ACT 112: Negative or not required by law. Electronically signed by: Reese Kellogg M.D. 09/14/2021 4:48 PM
[2021-09-14 17:00] LABS: Total Protein Pleural Fluid 3.6 gm/dl
[2021-09-14 17:12] LABS: Albumin Level 3.1 gm/dl (3.4-5.0); Bilirubin,Total 0.5 mg/dl (0.2-1.0); Total Protein 5.6 gm/dl (6.0-8.3)
[2021-09-14 17:17] LABS: Appearance Pleural Fluid Hazy; Color Pleural Fluid Yellow; Mono,Macrophage,Mesothelial 96 %; Neutrophils, Fluid 4 %; RBC Pleural Fluid (A) 4000 /uL; WBC Pleural Fluid (A) 1191 /uL
[2021-09-14] MEDS: SIMVASTATIN 20 MG TAB PO SCH (20:27)
[2021-09-15 06:55] LABS: Hematocrit (blood only) 25.2 % (40.1-51.0); Hemoglobin 8.5 g/dl (14.0-18.0); Mean Corpuscular Hemoglobin 33.5 pg (25.0-34.0); Mean Corpuscular Hgb Conc 33.7 g/dL (32.0-36.0); Mean Corpuscular Volume 99.2 fL (80.0-100.0); Mean Platelet Volume 9.3 fL (9.4-12.4); Nucleated RBC # (auto) 0.17 K/uL (0-0); Nucleated RBC % (auto) 10.6 %; Platelet Count 157 K/uL (130-400); RDW Coefficient of Variation 18.5 % (11.5-14.5); RDW Standard Deviation 65.9 fL (36.4-46.3); Red Blood Count 2.54 M/uL (4.63-6.08); White Blood Count 1.61 K/ul (4.8-10.8)
[2021-09-15] MEDS: ALBUT/IPRATROP 3MG/0.5MG NEB 3 ML VIAL NEB SCH ×4 (07:14→19:10)
[2021-09-15 07:24] LABS: BUN Creatinine Ratio 31.7 (10-20); Calcium 7.7 mg/dl (8.5-10.1); Creatinine Clr Calc Pharmacy 35.2 ml/min; Est GFR (African American) 60.4 ml/min; Est GFR (Non-African American) 52.1 ml/min; Potassium 4.1 mmol/L (3.5-5.1)
[2021-09-15 07:59] LABS: Ovalocytes 1+; Polychromasia 1+
[2021-09-15 08:00] LABS: Immature Granulocytes # (auto) 0.03 K/uL (0.00-0.02); Immature Granulocytes % (auto) 1.9 %; Lymphocytes # (auto) 0.71 K/uL (1.2-3.4); Lymphocytes % (auto) 44.1 %; Monocytes # (auto) 0.46 K/uL (0.24-0.82); Monocytes % (auto) 28.6 %; Neutrophils # (auto) 0.41 K/uL (1.4-6.5); Neutrophils % (auto) 25.4 %
--- NOTE | 2021-09-15 09:30 | XRay Report ---
XR chest 1V portable HISTORY: Pleural effusion. Follow-up. COMPARISON: Chest 09/14/2021. FINDINGS: No change in the moderate right pleural effusion and right basilar densities. No pneumothor ax. The heart is normal in size. The left-sided dual-chamber pacemaker. The left lung is clear. IMPRESSION: No change in the moderate right pleural effusion and right basilar densities. ACT 112: Negative or not required by law. Electronically signed by: Tristen Perez M.D. 09/15/2021 9:28 AM
--- NOTE | 2021-09-15 09:37 | Hospitalist Progress Note ---
Date of Service September 15, 2021 Assessment & Plan (1) Hypoxia: (2) Pleural effusion: (3) PAF (paroxysmal atrial fibrillation): (4) COPD (chronic obstructive pulmonary disease): (5) Hyperlipidemia: (6) Coronary artery disease: (7) Anemia: (8) Pulmonary nodule: (9) Presence of cardiac pacemaker: (10) Syncope: (11) Neutropenia: (12) Pancytopenia: (13) MDS (myelodysplastic syndrome): (14) Acute encephalopathy: Plan Patient is a 86 y/o male with PMHx of PAF (pacemaker), mild cognitive impairment, HLD, COPD, HTN, 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 #Acute Metabolic Encephalopathy -Patient is A&O x1 (Self), -?Delirium vs hypoxia vs hypoglycemic/metabolic derangement -Will continue to monitor O2, patient was slightly hyponatremia (132). #Hyponatremia -Given 500 Bolus NS, repeat BMP this afternoon showed improvement with hyponatremia (134) #Hypoxia -? sec to pleural effusion and underlying copd with possible exacerbation -Patient is currently at 94% on 2L NC. He does not use any oxygen at home. -Will continue to monitor for increased oxygen needs #Near Syncope -Head Ct was unremarkable -h/o hypotension in past. today BP was 90/50. 500 Bolus NS given. -Continue monitoring BP. #Pleural effusion -Large pleural effusion on the R seen on CT. -Pulmonology consulted and following. Thoracentesis was preformed yesterday and results still pending. primarily results showed exudative effusion. -Etiologies include malignances, CHF, parapneumonic -Started on Rocephin and Zithromax. Continue Zithromax (day 3) #COPD with mild exacerbation -Patient may have some underlying COPD exacerbation -Continue IV solumedrol -Start umeclidinium qd. #MDS #neutropenia #pancytopenia #Chronic Anemia -Follows with hematology/oncology. Last seen on 09/07. -receives Filgrastim and Procrit every 2 weeks. -Hemoglobin today was 8.5. Will recheck H&H after NS bolus given. Hemoglobin was 8.8 on recheck #PAF #HTN -Saw cardiology on 08/12 outpatient for episodes of hypotension: pacemaker showed several instances of afib over the last 6 months. -Continue home meds of sotalol. -On lisinopril in the past, no longer taking med at this time. #CAD -Continue holding aspirin #HLD -Continue home meds Code status: full code DVT ppx: holding d/t thoracentesis Held home meds: none Consults: pulmonary Dispo: med tele Thank you for allowing me to participate in the care of your patient. -Dr. Tyree Bell PGY1 Admission and Anticipated Discharge Date Admission Date: September 13, 2021 Supervising Physician Co-Signing Physician Notes Resident Physician Supervision Note: I independently interviewed and examined the patient and verified the coleman history and physical, reviewed labs and image studies and agree with resident Dr. Bell findings and care plan. Subjective Patient was seen beside this morning. He is only A&O x1 (self). He does not know where he is or the date. He denies any CP, SOB, N/V, and ab pain. Review of Systems Review of Systems: All systems reviewed & are unremarkable except as noted in HPI & below Physical Exam Constitutional: well developed and + altered mental status Eyes: PERRL, conjunctivae normal, anicteric sclerae ENMT: external ear and nose normal, oropharynx normal Respiratory: + dullness to percussion (R LL) Auscultation: + diminished lung sounds R LL> L LL Cardiovascular: RRR, no murmur, no edema Gastrointestinal (Abdomen): normal bowel sounds, soft, nontender, no hepatosplenomegaly Musculoskeletal: no cyanosis or clubbing, extremities motor strength 5/5 Skin: no rashes, warm and dry Psychiatric: Orientation: oriented to person Results & Data Results & Data ([facility]) Vital Signs (Past 12 Hours) Vital Signs Temp Pulse Pulse Resp BP Pulse Ox O2 Del Method 09/15/21 08:55 36.4 C L 83 18 90/50 L 98 Room Air 09/15/21 07:15 62 16 90 Room Air 09/15/21 00:30 Room Air 09/15/21 03:23 36.7 C 71 18 104/57 L 90 Room Air 09/15/21 02:00 60 09/14/21 23:39 36.6 C 59 L 18 106/60 92 Room Air Resident Activity Tracking Resident Involvement: Resident Care Provided Care Provided: Adult Hospital Medicine (1) Neutropenia Neutropenia type: unspecified Qualified Code(s): D70.9 - Neutropenia, unspecified
[2021-09-15] MEDS: SOTALOL HCL 80 MG TAB PO SCH ×2 (10:01→20:13)
[2021-09-15] MEDS: UMECLIDINIUM BROMIDE 62.5MCG/BLISTER 7 PUFFS/INHALER INH SCH (10:01)
--- NOTE | 2021-09-15 10:23 | Pulmonology Progress Note ---
Date of Service September 15, 2021 Assessment & Plan (1) Pleural effusion: (2) COPD (chronic obstructive pulmonary disease): (3) Acute respiratory failure with hypoxia: (4) Current smoker: Plan CT chest 09/13/2021 personally reviewed: Centrilobular emphysema appreciated Large right-sided pleural effusion with collapse of the right lower lobe Right middle lobe partial atelectasis No mediastinal lymphadenopathy -- Large right-sided pleural effusion EF 55-60% on 03/23/2019 Unilateral pleural effusion are always worrisome S/p right-sided thoracentesis 09/14/2021, 2.6 L of cloudy dark yellow serous fluid removed, exudative as per lights criteria Pleural fluid: LDH 540, total protein 3.6, glucose 100, pH 7.39 Serum: LDH 132, total protein 5.6, albumin 3.1 Patient does have history of MDS. Pleural effusion could be coming from that. 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 Await f inal cytology and pathology --COPD with emphysema Not on any inhalers at home We will start the patient on Incruse to be used on a daily basis --Current smoker [id number] smoking history Encouraged to quit --MDS Plan: Patient still has pleural effusion on the right side. I spoke with patient's son at [phone]. He wants to wait on repeat thoracentesis versus Pleurx catheter. Depending on how fast the pleural fluid reaccumulate stable decide the next course. Please note the above document was generated using voice recognition software. It may contain grammatical, syntax or spelling errors.Any formal questions or concerns about the content, text or information contained within the body of this dictation should be directly addressed to the provider for clarification. Admission and Anticipated Discharge Date Admission Date: September 13, 2021 Subjective Patient seen and examined at bedside. No acute distress, no adverse events overnight. Overall he says that he is feeling better compared to yesterday. But denies any significant change in his breathing. Denies any headache, no nausea or vomiting No coughing Denies any hemoptysis No chills Review of Systems Review of Systems: All systems reviewed & are unremarkable except as noted in Subjective Physical Exam Physical Exam: Constitutional: No acute distress HEENT: EOMI, PERRLA Respiratory system: Decreased air entry on the right side, no wheeze, no rhonchi, positive crackles plus right lower lobe CVS: S1-S2 positive, positive 2 out of 6 systolic murmur appreciated best at the apex, distant heart sounds, left-sided pacemaker Abdomen: Soft, nontender, nondistended, positive bowel sounds x4 Extremities: +2 pulses bilaterally radialis/ dorsalis pedis, no cyanosis, no edema Neuro: Awake alert oriented x3 Psych: Normal mood and affect G/U: No Winn Skin: no rashes, warm and dry Lymphatic: no cervical or axillary lymphadenopathy Results & Data Results & Data ([facility]) Vital Signs (Past 12 Hours) Vital Signs Temp Pulse Pulse Resp BP Pulse Ox O2 Del Method 09/15/21 08:55 36.4 C L 83 18 90/50 L 98 Room Air 09/15/21 07:15 62 16 90 Room Air 09/15/21 00:30 Room Air 09/15/21 03:23 36.7 C 71 18 104/57 L 90 Room Air 09/15/21 02:00 60 09/14/21 23:39 36.6 C 59 L 18 106/60 92 Room Air Laboratory Results 09/15/21 05:55 09/15/21 05:55 PG Care Time/CCT Total # of Minutes Spent Total Time Spent with Patient: Total time spent is greater than 50% in coordination of care (as documented) at patient's floor/unit and/or counseling patient: Coding Level of Care Code 50012 Subseq Hosp Care Lvl 2 Diagnoses Pleural effusion J90 COPD (chronic obstructive pulmonary disease) J44.9 Acute respiratory failure with hypoxia J96.01 Current smoker F17.200
[2021-09-15] MEDS ORDERED: SODIUM CHLORIDE 0.9% 1000ML 500 ML IV ONE (11:05)
[2021-09-15] MEDS ORDERED: SODIUM CHLORIDE 0.9% 500 ML IV ONE (11:45)
[2021-09-15 16:13] LABS: Hematocrit (blood only) 26.6 % (40.1-51.0); Hemoglobin 8.8 g/dl (14.0-18.0)
[2021-09-15 16:41] LABS: BUN Creatinine Ratio 26.7 (10-20); Calcium 7.9 mg/dl (8.5-10.1); Creatinine Clr Calc Pharmacy 33.1 ml/min; Est GFR (African American) 55.9 ml/min; Est GFR (Non-African American) 48.3 ml/min; Potassium 4.4 mmol/L (3.5-5.1)
[2021-09-15] MEDS: SIMVASTATIN 20 MG TAB PO SCH (20:13)
[2021-09-16 06:07] LABS: Hematocrit (blood only) 25.2 % (40.1-51.0); Hemoglobin 8.2 g/dl (14.0-18.0); Mean Corpuscular Hemoglobin 33.1 pg (25.0-34.0); Mean Corpuscular Hgb Conc 32.5 g/dL (32.0-36.0); Mean Corpuscular Volume 101.6 fL (80.0-100.0); Mean Platelet Volume 9.4 fL (9.4-12.4); Nucleated RBC # (auto) 0.05 K/uL (0-0); Nucleated RBC % (auto) 3.4 %; Platelet Count 144 K/uL (130-400); RDW Coefficient of Variation 18.6 % (11.5-14.5); Red Blood Count 2.48 M/uL (4.63-6.08); White Blood Count 1.47 K/ul (4.8-10.8)
[2021-09-16 06:30] LABS: BUN Creatinine Ratio 25.2 (10-20); Calcium 7.5 mg/dl (8.5-10.1); Creatinine Clr Calc Pharmacy 39.7 ml/min; Est GFR (African American) 68.3 ml/min; Potassium 4.2 mmol/L (3.5-5.1)
[2021-09-16] MEDS: ALBUT/IPRATROP 3MG/0.5MG NEB 3 ML VIAL NEB SCH ×3 (07:32→15:08)
--- NOTE | 2021-09-16 07:36 | Hospitalist Progress Note ---
Date of Service September 16, 2021 Assessment & Plan (1) Hypoxia: (2) Pleural effusion: (3) PAF (paroxysmal atrial fibrillation): (4) COPD (chronic obstructive pulmonary disease): (5) Hyperlipidemia: (6) Coronary artery disease: (7) Anemia: (8) Pulmonary nodule: (9) Presence of cardiac pacemaker: (10) Syncope: (11) Pancytopenia: (12) MDS (myelodysplastic syndrome): (13) Acute encephalopathy: Plan Patient is a 86 y/o male with PMHx of PAF (pacemaker), mild cognitive impairm ent, HLD, COPD, HTN, 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 #Acute Metabolic Encephalopathy -Patient is A&O x1 (Self), -?Delirium vs hypoxia vs hypoglycemic/metabolic derangement -Will continue to monitor O2, patient was slightly hyponatremia (132). #Hyponatremia -Given 500 Bolus NS, repeat BMP this afternoon showed improvement with hyponatremia (134) #Hypoxia -? sec to pleural effusion and underlying copd with possible exacerbation -Patient is currently at 94% on 2L NC. He does not use any oxygen at home. -Will continue to monitor for increased oxygen needs #Near Syncope -Head Ct was unremarkable -h/o hypotension in past. today BP was 90/50. 500 Bolus NS given. -Continue monitoring BP. #Pleural effusion -Large pleural effusion on the R seen on CT. -Pulmonology consulted and following. Thoracentesis was preformed yesterday and results still pending. primarily results showed exudative effusion. -Etiologies include malignances, CHF, parapneumonic -Started on Rocephin and Zithromax. Continue Zithromax (day 3) #COPD with mild exacerbation -Patient may have some underlying COPD exacerbation -Continue IV solumedrol -Start umeclidinium qd. #MDS #neutropenia #pancytopenia #Chronic Anemia -Follows with hematology/oncology. Last seen on 09/07. -receives Filgrastim and Procrit every 2 weeks. -Hemoglobin today was 8.5. Will recheck H&H after NS bolus given. Hemoglobin was 8.8 on recheck #PAF #HTN -Saw cardiology on 08/12 outpatient for episodes of hypotension: pacemaker showed several instances of afib over the last 6 months. -Continue home meds of sotalol. -On lisinopril in the past, no longer taking med at this time. #CAD -Continue holding aspirin #HLD -Continue home meds Code status: full code DVT ppx: holding d/t thoracentesis Held home meds: none Consults: pulmonary Dispo: med tele Thank you for allowing me to participate in the care of your patient. -Dr. Tyree Bell PGY1 Admission and Anticipated Discharge Date Admission Date: September 13, 2021 Results & Data Results & Data ([facility]) Vital Signs (Past 12 Hours) Vital Signs Temp Pulse Pulse Resp BP Pulse Ox O2 Del Method 09/16/21 07:33 65 18 90 Room Air 09/16/21 00:54 61 09/16/21 00:00 36.7 C 65 18 97/52 L 92 Room Air
[2021-09-16] MEDS: UMECLIDINIUM BROMIDE 62.5MCG/BLISTER 7 PUFFS/INHALER INH SCH (08:23)
--- NOTE | 2021-09-16 08:40 | XRay Report ---
XR chest 1V portable HISTORY: Pleural effusion. Follow-up. COMPARISON: Chest 09/15/2021. FINDINGS: No pneumothorax. No change in the moderate right pleural effusion and right basilar densiti es. The left lung is clear. The heart is normal in size. There is a left-sided dual-chamber pacemaker . IMPRESSION: No change in the moderate right pleural effusion and right basilar densities. ACT 112: Negative or not required by law. Electronically signed by: Tristen Perez M.D. 09/16/2021 8:38 AM
--- NOTE | 2021-09-16 09:50 | Pulmonology Progress Note ---
Date of Service September 16, 2021 Assessment & Plan (1) Pleural effusion: (2) COPD (chronic obstructive pulmonary disease): (3) Acute respiratory failure with hypoxia: (4) Current smoker: Plan CT chest 09/13/2021 personally reviewed: Centrilobular emphysema appreciated Large right-sided pleural effusion with collapse of the right lower lobe Right middle lobe partial atelectasis No mediastinal lymphadenopathy -- Large right-sided pleural effusion EF 55-60% on 03/23/2019 Unilateral pleural effusion are always worrisome S/p right-sided thoracentesis 09/14/2021, 2.6 L of cloudy dark yellow serous fluid removed, exudative as per lights criteria Pleural fluid: LDH 540, total protein 3.6, glucose 100, pH 7.39 Serum: LDH 132, total protein 5.6, albumin 3.1 Patient does have history of MDS. Pleural effusion could be coming from that. 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 Await f inal cytology and pathology --COPD with emphysema Not on any inhalers at home We will start the patient on Incruse to be used on a daily basis --Current smoker [id number] smoking history Encouraged to quit --MDS Plan: Preliminary diagnosis from the cytology fluid is malignancy. Please wait for final cytology and pathology. Chest x-ray from today still shows right-sided pleural effusion Family does not want any intervention done right now unless it is absolutely necessary. I spoke with patient's son at [phone] on 09/15/21. He wants to wait on repeat thoracentesis versus Pleurx catheter. Depending on how fast the pleural fluid reaccumulate stable decide the next course. Which I think it is reasonable given that patient is not in any respiratory distress. Would recommend to continue with incentive spirometry No further recommendation from pulmonary perspective. We will sign off. Please call directly with any questions Please note the above document was generated using voice recognition software. It may contain grammatical, syntax or spelling errors.Any formal questions or concerns about the content, text or information contained within the body of this dictation should be directly addressed to the provider for clarification. Admission and Anticipated Discharge Date Admission Date: September 13, 2021 Subjective Patient seen and examined at bedside. No acute distress noticed events overnight. Patient was dressed up and wanted to leave. He says he is feeling better. Denies any chest pain, no headache, no nausea, no vomiting. Shortness of breath has improved to certain degree. Review of Systems Review of Systems: All systems reviewed & are unremarkable except as noted in Subjective Physical Exam 2 Physical Exam: Constitutional: No acute distress HEENT: EOMI, PERRLA Respiratory system: Decreased air entry on the right side, no wheeze, no rhonchi, positive crackles right lower lobe CVS: S1-S2 positive, positive 2 out of 6 systolic murmur appreciated best at the apex, distant heart sounds, left-sided pacemaker Abdomen: Soft, nontender, nondistended, positive bowel sounds x4 Extremities: +2 pulses bilaterally radialis/ dorsalis pedis, no cyanosis, no e lucille Neuro: Awake alert oriented x3 Psych: Normal mood and affect G/U: No Winn Skin: no rashes, warm and dry Lymphatic: no cervical or axillary lymphadenopathy Results & Data Results & Data ([facility]) Vital Signs (Past 12 Hours) Vital Signs Temp Pulse Pulse Resp BP BP Pulse Ox 09/16/21 07:47 36.4 C L 77 16 107/75 95 09/16/21 07:33 65 18 90 09/16/21 00:54 61 09/16/21 00:00 36.7 C 65 18 97/52 L 92 O2 Del Method 09/16/21 07:47 Room Air 09/16/21 07:33 Room Air 09/16/21 00:54 09/16/21 00:00 Room Air Laboratory Results 09/16/21 05:38 09/16/21 05:38 PG Care Time/CCT Total # of Minutes Spent Total Time Spent with Patient: Total time spent is greater than 50% in coordination of care (as documented) at patient's floor/unit and/or counseling patient: Coding Level of Care Code 89851 Subseq Hosp Care Lvl 2 Diagnoses Pleural effusion J90 COPD (chronic obstructive pulmonary disease) J44.9 Acute respiratory failure with hypoxia J96.01 Current smoker F17.200
[2021-09-16] MEDS: SOTALOL HCL 80 MG TAB PO SCH (09:57)
--- NOTE | 2021-09-16 20:28 | Discharge Summary ---
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 Patient is alone in the room and is a somewhat unreliable historian. Patient tells me that he was bringing his to the hospital today in his truck. He does still drive. He had to stop at a sheets and [place] as he had to have a bowel movement. Unfortunately, he had difficulty getting off the toilet. Is unclear if he required help or if he did it under his own power. However, he was able to leave that she in his truck. He then stopped at another she did [place] as he continued to feel unwell. At this point, he likely required assistance to get off the toilet and was again escorted to his truck. Per the patient, he was able to drive himself to the hospital and was able to register himself, complaining of generalized weakness. At the time my evaluation, the patient's O2 sat was around 89% on room air, patient was using any supplemental oxygen. He denies any significant shortness of breath, recent significant weight loss, new urinary difficulties, or other issues. Work-up included a CT of the chest which showed a significant right pleural effusion which does not appear on previous films from late 2020. Patient is now being admitted for hypoxia and work-up of this pleural effusion. Admission Exam Per Admitting Provider Constitutional: cooperative; no acute distress Neck: trachea midline, no thyromegaly Respiratory: normal respiratory effort Auscultation: + wheezes; no crackles, no rales and no rhonchi diminished, dull to precussion R base Cardiovascular: Rate/Rhythm: regular rate and regular rhythm Heart Sounds: normal S1 and normal S2 Gastrointestinal (Abdomen): Inspection/Auscultation: abdomen normal to inspection Percussion/Palpation: abdomen soft; abdomen nontender, no guarding, abdomen not rigid and no hepatosplenomegaly Skin: no rashes, warm and dry Neurologic: patellar DTR's 2+ bilat, sensation intact and PERRL, EOMI, accommodation nl, no face palsy, no dysarthria Principal Diagnosis Hypoxia 2/2 pleural effusion Discharge Exam Constitutional WD/WN, vitals as above well developed, + altered mental status and cooperative; no acute distress Eyes PERRL, conjunctivae normal, anicteric sclerae ENMT external ear and nose normal, oropharynx normal Neck trachea midline, no thyromegaly Respiratory normal respiratory effort and + dullness to percussion (R LL) Auscultation: + diminished lung sounds and + wheezes; no crackles, no rales and no rhonchi Cardiovascular RRR, no murmur, no edema Rate/Rhythm: regular rate and regular rhythm Heart Sounds: normal S1 and normal S2 Gastrointestinal (Abdomen) normal bowel sounds, soft, nontender, no hepatosplenomegaly Inspection/Auscultation: abdomen normal to inspection Percussion/Palpation: abdomen soft; abdomen nontender, no guarding, abdomen not rigid and no hepatosplenomegaly Musculoskeletal no cyanosis or clubbing, extremities motor strength 5/5 Skin no rashes, warm and dry Neurologic patellar DTR's 2+ bilat, sensation intact and PERRL, EOMI, accommodation nl, no face palsy, no dysarthria Psychiatric Orientation: oriented to person and oriented to place; + not oriented to time Lymphatic no cervical or axillary lymphadenopathy Discharge Data Allergies Allergy/AdvReac Type Severity Reaction Status Date / Time Sulfa (Sulfonamide Allergy Unknown Unknown Verified 09/13/21 17:23 Antibiotics) Consultations 09/13/21 17:22 ED Decision to Admit Stat 09/13/21 21:19 Consult Pulmonology Routine Procedures Performed Diagnostic therapeutic ultrasound-guided catheter thoracentesis Ordered Studies 09/13/21 15:35 CT angio abdomen pelvis w con Stat CT angio chest dissec wo/w con Stat CT head/brain wo con Stat 09/14/21 07:32 US point of care ultrasound Urgent Hospital Course (1) Hypoxia: (2) Pleural effusion: (3) PAF (paroxysmal atrial fibrillation): (4) COPD (chronic obstructive pulmonary disease): (5) Hyperlipidemia: (6) Coronary artery disease: (7) Anemia: (8) Pulmonary nodule: (9) Presence of cardiac pacemaker: (10) Syncope: (11) Pancytopenia: (12) MDS (myelodysplastic syndrome): (13) Acute encephalopathy: Plan Patient is a 86 y/o male with PMHx of PAF (pacemaker), mild cognitive impairment, HLD, COPD, HTN, 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 He was noted to be hypoxic on admission. Patient had a large R lower lobe effusion seen on imaging. He had a thoracentesis performed and removed 2.6 L of exudative fluid. At time of discharge the fluid cytology and pathology was still pending. Rocephin and Zithromax were given to the patient during this admission but d/jose on discharge as pleural effusion not infectious. Patient has an extensive smoking history of a pack a day for most of his life and has previous lung nodules seen on imaging that were unchanged on imaging in this admission. He also received IV solumedrol for concern of COPD exacerbation but later d/jose as symptoms were likely from pleural effusion. Patient hypoxia improved and was 96% on room air at time of discharge. Patient during hospital course was never A&Ox3. At best he was oriented to self and place. With talking with the son, this is patients baseline. Head CT was unremarkable. He also had slight hyponatremia that improved with a bolus of NS. He was noted to have leukopenia and neutropenia on admission that was unchanged since previous admissions and outpatient visits. He follows with oncology/hematology for suspected MDS. Patient should f/u this Dr. Villavicencio (oncologist) and his PCP within the next 2-3 weeks to discuss cytology and pathology reports of his fluids and the next steps in treatment. He should schedule a visit with pulmonology if fluid in his lungs become symptomatic again for therapeutic thoracentesis as needed. He was instructed to return to the ER if symptoms of hypoxia return. For concern of his lack of orientation/likely shelter dementia, the patient should not drive at this time and be reevaluated by his PCP on his follow up appointment. No additional medications were added to his home regiment at time of discharge. Total Time Total Time Spent Total Time Spent (In Minutes): 60 Total Time Includes: Examination of the Patient, Discharge Planning and Communication With Other Providers Discharge Plan Discharge Items Patient Disposition: Home - Self-Care Discharge Diagnosis: Hypoxia 2/2 pleural effusion Activity: Per Instructions section Driving/Machine Use: Resume after seeing PCP Non-emergency contact: Primary Care Provider Call non-emergency contact if: you have any medication questions, your symptoms worsen and you have a fever Follow-up/Referrals: Nilesh Nguyen CRNP [Primary Care Provider] - 09/27/21 10:20 am Karina Villavicencio MD [Physician] - Diet: Regular Addtl Attending Provider Instructions: You were seen in hospital for hypoxia due to having a large right sided pleural effusion. Thoracentesis was preformed on 09/14 which removed 2.6L of cloudy dark yellow serous fluid. The fluid was exudative per lights criteria. Cytology and pathology are still pending. 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 You should f/u with your Dr. Villavicencio (oncologist) within next 2- 3 weeks. F/u with PCP in 2 weeks. Can schedule with pulmonology if needed for repeated drainage if fluid accumulates. You should return to the ER if your symptoms of hypoxia return. You should not drive until reevaluated by your PCP. Your son will come pick you up. Continue your home medications. No additional medications will be added at this time. Pending Studies at Discharge: Yes (pleural fluid cytology and pathology ) Stand-Alone Forms: My [facility], Smoking Cessation Medications and DC Order Prescriptions: Continued simvastatin 20 mg tablet 20 mg PO QPM Qty: 90 1RF sotalol 80 mg tablet 40 mg PO BID Qty: 90 2RF aspirin 81 mg tablet,delayed release (DR/EC) 81 mg PO QAM cyanocobalamin (vitamin B-12) [Vitamin B-12] 100 mcg Tablet 100 mcg PO DAILY cholecalciferol (vitamin D3) [Vitamin D3] 50 mcg (2,000 unit) Capsule 50 mcg PO DAILY Prevagen 10 mg PO DAILY Discharge Orders: Discharge Order (Routine); Ordered 09/16/21 Ordered By: Tyree Bell Admission Data Admit Date/Time: 09/13/21 18:02 Attending Provider: Suzanne Darling Admit Provider: Enmanuel Rogers Primary Care Provider: Nilesh Nguyen Other Providers: Enmanuel Rogers ; Federico Gomez Other Interventions: Discharge Summary Assessment (RN) Last Done: 09/16/21 12:24 Supervising Physician Co-Signing Physician Notes Resident Physician Supervision Note: I independently interviewed and examined the patient and verified the coleman history and physical, reviewed labs and image studies and agree with resident Dr. Bell findings and care plan.
--- NOTE | 2021-09-20 16:37 | Coding Query ---
PATHOLOGY To promote full compliance with coding requirements relating to patient care, physician participation is requested in all cases of character actor uncertainty. Please assist us with the question(s) below: Please review the Pathology report and please document any relevant diagnosis(es) below: Pt admitted with acute hypoxic resp failure with pleural effusion. Diagnostic thoracentesis was done .. Diagnosis(es): Acute hypoxic respiratory failure Large pleural effusion metastatic lung primary adenocarcinoma Thank you Dane Anders [facility]
== END 2021-09-16 16:45 | disposition home or self-care (01) | DRG 180 ==
LOC: ED 13:54 → EDINP 18:02 → SUATTDRO 18:02 → 2W 21:20
DX: Z95.5 Presence of coronary angioplasty implant and graft; F17.210 Nicotine dependence, cigarettes, uncomplicated; E78.5 Hyperlipidemia, unspecified; J44.1 Chronic obstructive pulmonary disease with (acute) exacerbation; J98.11 Atelectasis; D61.818 Other pancytopenia; J96.21 Acute and chronic respiratory failure with hypoxia; G93.41 Metabolic encephalopathy; D46.9 Myelodysplastic syndrome, unspecified; I25.10 Atherosclerotic heart disease of native coronary artery without angina pectoris; C34.90 Malignant neoplasm of unspecified part of unspecified bronchus or lung; Z79.82 Long term (current) use of aspirin; I10 Essential (primary) hypertension; J91.0 Malignant pleural effusion; I48.0 Paroxysmal atrial fibrillation; Z95.0 Presence of cardiac pacemaker; Z88.2 Allergy status to sulfonamides